=== PATIENT | female | born 1970 | race Caucasian/White ===

== ENCOUNTER 2022-09-04 19:50 | Outpatient (REF) | payer BC, SELFPAY ==
[2022-09-07 17:07] LABS: Age Gdln ACOG Testing Note (.); HPV Aptima Negative (Negative); IGP, Aptima HPV, rfx 16/18,45 Note (.)
== END 2022-09-04 19:51 ==
LOC: LAB 19:50
PROVIDERS: PCP Physician Assistant; Visit Provider Physician Assistant
DX: Z12.4 Encounter for screening for malignant neoplasm of cervix (principal)
CPT/HCPCS: 87624; G0145

== ENCOUNTER 2023-07-30 09:38 | Outpatient (OUT) | payer OTHER, SELFPAY ==
--- NOTE | 2023-07-30 09:47 | XR_ITS ---
The [address] [address] Patient Name: ARSENIO MCINTOSH MRN: [id number] date: 1970 Sex: F Assigned Patient Location: [facility] Current Patient Location: [facility] Accession/Order Number: [id number] Exam Date: 07/30/2023 09:55 Report Date: 07/30/2023 10:10 At the request of: KELLY CUBA Procedure: XR chest 2V EXAMINATION: XR chest 2V HISTORY: Acute Bronchitis Unspecified Organism J20.9 COMPARISON: No relevant comparison available. TECHNIQUE: PA and lateral FINDINGS: LUNGS: No significant pulmonary parenchymal abnormalities. VASCULATURE: No increased pulmonary vasculature. PLEURA: No pneumothorax, effusion, or pleural thickening. CARDIAC: No cardiomegaly or cardiac silhouette abnormality. MEDIASTINUM: No visible mass or adenopathy. BONES: No fracture or visible bone lesion. OTHER: Negative. XR/XR chest 2V IMPRESSION: No acute cardiopulmonary process Electronically authenticated by: ANGEL TURNER Date: 07/30/2023 10:10
== END 2023-07-30 09:39 | disposition home or self-care (01) ==
LOC: RAD 09:43
PROVIDERS: PCP Family Medicine; Visit Provider Family Medicine
DX: J20.9 Acute bronchitis, unspecified (principal)
CPT/HCPCS: 71046

== ENCOUNTER 2023-09-03 10:55 | Outpatient (OUT) | payer OTHER, SELFPAY ==
--- NOTE | 2023-09-03 11:02 | MM_ITS ---
Patient Name: ARSENIO MCINTOSH MR#: [id number] : 1970 Exam Date: 09/03/2023 Ordering Doctor: DR Salvatore Maxwell . RADIOLOGY REPORT PROCEDURE: MM TOMOSYNTHESIS SCREENING BI COMPARISON: MG MAMM SCREEN 3D JAYLA CAD, 08/28/2022. MG MAMM SCREEN JAYLA W CAD, 02/24/2019. MG MAMM JAYLA SCRN W CAD DIG, 10/20/2013. INDICATIONS: Screening Calculator Name NCI Breast Cancer Risk Assessment Tool 5 Year Breast Cancer Risk 1.30% Lifetime Breast Cancer Risk 9.30% Personal Breast Cancer No Personal Ovarian Cancer No Treatments None Family Cancers Grandfather-paternal with prostate cancer at age 78; Grandmother-maternal with unknown cancer at age ~80. LOCATION: [facility] BREAST COMPOSITION: There are scattered areas of fibroglandular density. FINDINGS: DIAGNOSTIC CATEGORY 1--NEGATIVE. RIGHT BREAST: No significant suspicious finding. No significant change has occurred. LEFT BREAST: No significant suspicious finding. No significant change has occurred. RECOMMENDATIONS: ROUTINE MAMMOGRAM AND CLINICAL EVALUATION IN 12 MONTHS. PLEASE NOTE: A NORMAL MAMMOGRAM DOES NOT EXCLUDE THE POSSIBILITY OF BREAST CANCER. A CLINICALLY SUSPICIOUS PALPABLE LUMP SHOULD BE BIOPSIED. Dictated by: Kerwin Cloud M.D. on 09/05/2023 at 13:52 Approved by: Kerwin Cloud M.D. on 09/05/2023 at 13:53
== END 2023-09-03 10:56 | disposition home or self-care (01) ==
LOC: RAD 10:57
PROVIDERS: PCP Family Medicine; Visit Provider Family Medicine
DX: Z00.00 Encounter for general adult medical examination without abnormal findings (principal); Z12.31 Encounter for screening mammogram for malignant neoplasm of breast; M81.0 Age-related osteoporosis without current pathological fracture; Z80.42 Family history of malignant neoplasm of prostate; Z80.8 Family history of malignant neoplasm of other organs or systems
CPT/HCPCS: 77063; 77067

== ENCOUNTER 2023-09-06 08:45 | Outpatient (OUT) | payer OTHER, SELFPAY ==
--- OUTSIDE RECORDS SUMMARY | 2023-09-06 09:07 | XMS_ITS | CCD ---
Author Organization [facility] Care Team Providers Care Contract Mail Carrier Name Role Phone ROSA ELENA Dickerson, DR MENDOZA Primary Care Unavailable ROSA ELENA ., DR MENDOZA Consulting Unavailable ROSA ELENA ., DR MENDOZA Attending Unavailable ROSA ELENA ., DR MENDOZA Admitting Unavailable INDIAN WELLS, DR ANGEL Medeiros Consulting Unavailable ROSA ELENA ., DR MENDOZA Admitting Unavailable ROSA ELENA ., DR MENDOZA Primary Care Unavailable ROSA ELENA ., DR MENDOZA Consulting Unavailable ROSA ELENA ., DR MENDOZA Attending Unavailable Nathalia Garcia Unavailable Medications Current Medications Medication Drug Class(es) Dates Sig (Normalized) Sig (Original) Calcium (1 source) Phosphate Binder, Calcium Calcium Active Escitalopram (1 source) Serotonin Reuptake Inhibitor Lexapro Active Ibandronate (1 source) Bisphosphonate Boniva Active pantoprazole 40 mg delayed release oral tablet (1 source) Proton Pump Inhibitor take 1 tablet by mouth every twenty-four hours Pantoprazole Sodium 40 MG 1 tablet Orally Once a day Active Womens One Daily (1 source) Womens One Daily Active Problems Active Problems Problem Classification Problem Date Documented Date Episodic/Chronic Other ear and sense organ disorders (1 source) Impacted cerumen, right ear Episodic Other screening for suspected conditions (not mental disorders or infectious disease) (1 source) Encounter for screening mammogram for malignant neoplasm of breast; Translations: [ENC SCR MAMMO MALIG NEOPLASM BREAST] Onset: 08-29-2022 Episodic Otitis media and related conditions (1 source) Other acute nonsuppurative otitis media, bilateral Episodic Residual codes; unclassified (1 source) Family history of malignant neoplasm of prostate; Translations: [FAMILY HX MALIG NEOPLASM PROSTATE] Onset: 08-29-2022 Episodic Residual codes; unclassified (1 source) Family history of malignant neoplasm, unspecified; Translations: [FAM HX MALIGNANT NEOPLASM UNS] Onset: 08-29-2022 Episodic Unclassified (3 sources) CONTACT W/AND (SUSP) EXPOS COVID-19; Translations: [CONTACT W/AND (SUSP) EXPOS COVID-19] Onset: 03-03-2022 Past or Other Problems Problem Classification Problem Date Documented Da te Episodic/Chronic Acute bronchitis (1 source) Acute bronchitis, unspecified; Translations: [ACUTE BRONCHITIS UNSPECIFIED] Onset: 03-03-2022 Episodic Unclassified (1 source) CONTACT W/AND (SUSP) EXPOS COVID-19; Translations: [CONTACT W/AND (SUSP) EXPOS COVID-19] Onset: 03-01-2022 Results Test Name Value Interpretation Reference Range Facil ity CBC AUTO DIFFon 08-28-2022 BASO # 0.1 103/ul Normal 0.0-0.1 [facility] Comment on above: Performed By: #### I NICOLE #### [facility] [address] [place] [address] Dr. Donte Palacio Basophils/100 WBC (Bld) 0.7 % Normal 0.2-2.0 [facility] Comment on above: Performed By: #### I NICOLE #### [facility] [address] [place] [address] Dr. Donte Palacio EO # 0.1 103/ul Normal 0.0-0.7 [facility] Comment on above: Performed By: #### I NICOLE #### [facility] [address] [place] [address] Dr. Donte Palacio Eosinophils/100 WBC (Bld) 1.6 % Normal 0.9-7.0 [facility] Comment on above: Performed By: #### I NICOLE #### [facility] [address] [place] [address] Dr. Donte Palacio Erythrocyte distribution width (RBC) [Ratio] 13.1 % Normal 11.0-15.0 [facility] Comment on above: Performed By: #### I NICOLE #### [facility] [address] [place] [address] Dr. Donte Palacio Hematocrit (Bld) [Volume fraction] 40.4 % Normal 36.0-48.0 [facility] Comment on above: Performed By: #### I NICOLE #### [facility] [address] [place] [address] Dr. Donte Palacio Hemoglobin (Bld) [Mass/Vol] 13.2 g/dL Normal 12.0-16.0 [facility] Comment on above: Performed By: #### I NICOLE #### [facility] [address] [place] [address] Dr. Donte Palacio IG # 0.02 10e3/ul Normal 0.00-0.03 [facility] Comment on above: Performed By: #### I NICOLE #### [facility] [address] [place] [address] Dr. Donte Palacio IG % 0.3 % Normal 0.0-0.5 [facility] Comment on above: Performed By: #### I NICOLE #### [facility] [address] [place] [address] Dr. Donte Palacio LYMPH # 2.0 103/ul Normal 1.2-3.8 [facility] Comment on above: Performed By: #### I NICOLE #### [facility] [address] [place] [address] Dr. Donte Palacio Lymphocytes/100 WBC (Bld) 30.4 % Normal 20.5-60.0 [facility] Comment on above: Performed By: #### I NICOLE #### [facility] [address] [place] [address] Dr. Donte Palacio MANUAL DIFF REQ NO Normal [facility] Comment on above: Performed By: #### I NICOLE #### [facility] [address] [place] [address] Dr. Dotne Palacio MCH (RBC) [Entitic mass] 29.2 pg Normal 26.7-34.0 [facility] Comment on above: Performed By: #### I NICOLE #### [facility] [address] [place] [address] Dr. Donte Palacio MCHC (RBC) [Mass/Vol] 32.7 g/dL Normal 29.9-35.2 [facility] Comment on above: Performed By: #### I NICOLE #### [facility] [address] [place] [address] Dr. Donte Palacio MCV (RBC) [Entitic vol] 89.4 fL Normal 81.0-99.0 [facility] Comment on above: Performed By: #### I NICOLE #### [facility] [address] [place] [address] Dr. Donte Palacio MONO # 0.5 103/ul Normal 0.3-0.8 [facility] Comment on above: Performed By: #### I NICOLE #### [facility] [address] [place] [address] Dr. Donte Palacio Monocytes/100 WBC (Bld) 7.2 % Normal 1.7-12.0 [facility] Comment on above: Performed By: #### I NICOLE #### [facility] [address] [place] [address] Dr. Donte Palacio NEUT # 4.0 103/ul Normal 1.4-6.5 [facility] Comment on above: Performed By: #### I NICOLE #### [facility] [address] [place] [address] Dr. Donte Palacio Neutrophils/100 WBC (Bld) 59.8 % Normal 43.0-75.0 [facility] Comment on above: Performed By: #### I NICOLE #### [facility] [address] [place] [address] Dr. Donte Palacio Platelet mean volume (Bld) [Entitic vol] 10.2 fL Normal 9.5-13.5 [facility] Comment on above: Performed By: #### I INCOLE #### [facility] [address] [place] [address] Dr. Donte Palacio PLT 246 103/ul Normal 150-450 [facility] Comment on above: Performed By: #### I NICOLE #### [facility] [address] [place] [address] Dr. Donte Palacio RBC 4.52 106/ul Normal 4.20-5.40 [facility] Comment on above: Performed By: #### I NICOLE #### [facility] [address] [place] [address] Dr. Donte Palacio WBC 6.7 103/ul Normal 4.0-11.0 [facility] Comment on above: Performed By: #### I NICOLE #### [facility] [address] [address] [address] Donte Palacio CULTURE URINEon 08-28-2022 CULTURE URINE Culture Observations: NO GROWTH. Normal [facility] Comment on above: Performed By: #### U RCX #### [facility] [address] [address] [address] Donte Palacio FREE T3on 08-28-2022 FREE T3 2.80 pg/mlL Normal 2.18-3.98 [facility] Comment on above: Performed By: #### C MP, LIPID, T4, FT3, TSH #### [facility] [address] [address] [address] Donte Palacio GLYCOHEMOGLOBIN A1Con 2022 ADA RECOMMENDATION SEE BELOW Normal [facility] Comment on above: Result Comment: ADA RECOMMENDED LIMIT 4.0 - 6.0 ADA THERAPEUTIC TARGET < 7.0 ACTION SUGGESTED > 7.0 Performed By: #### A 1C #### [facility] [address] [place] [address] Dr. Donte Palacio Glucose [Mass/Vol] 100 mg/dL Normal [facility] Comment on above: Performed By: #### A 1C #### [facility] [address] [address] [address] Donte Palacio HbA1c (Bld) [Mass fraction] 5.1 % Normal 4.5-6.2 [facility] Comment on above: Performed By: #### A 1C #### [facility] [address] [address] [address] Donte Palacio IRONon 08-28-2022 Iron [Mass/Vol] 74.0 ug/dL Normal 50.0-170.0 [facility] Comment on above: Performed By: #### I NICOLE #### [facility] [address] [place] [address] Dr. Donte Palacio LIPID PROFILEon 08-28-2022 CHOL-HDL RATIO NORM SEE BELOW Normal [facility] Comment on above: Result Comment: 3.3 - 4.4 LOW RISK 4.4 - 7.1 AVERAGE RISK 7.1 - 11.0 MODERATE RISK >11.0 HIGH RISK Performed By: #### C MP, LIPID, T4, FT3, TSH #### [facility] [address] [address] [address] Donte Palacio Cholesterol [Mass/Vol] 212 mg/dL Critically high <=200 [facility] Comment on above: Performed By: #### C MP, LIPID, T4, FT3, TSH #### [facility] [address] [address] [address] Donte Palacio Cholesterol in HDL [Mass/Vol] 71 mg/dL Critically high 40-60 [facility] Comment on above: Performed By: #### C MP, LIPID, T4, FT3, TSH #### [facility] [address] [place] [address] Dr. Donte Palacio Cholesterol in LDL [Mass/Vol] 117.2 mg/dL Normal [facility] Comment on above: Performed By: #### C MP, LIPID, T4, FT3, TSH #### [facility] [address] [place] [address] Dr. Donte Palacio Cholesterol.total/Cho lesterol in HDL [Mass ratio] 3.0 {ratio} Normal [facility] Comment on above: Performed By: #### C MP, LIPID, T4, FT3, TSH #### [facility] [address] [place] [address] Dr. Donte Palacio HDL NORMAL > or = 60 mg/dl - LOW CARDIOVASCULAR RISK <40 mg/dl - HIGH CARDIOVASCULAR RISK Normal [facility] Comment on above: Performed By: #### C MP, LIPID, T4, FT3, TSH #### [facility] [address] [place] [address] Dr. Donte Palacio LDL CALC NORMAL SEE BELOW Normal [facility] Comment on above: Result Comment: <100 mg/dl OPTIMAL 100 - 129 mg/dl NEAR OR ABOVE OPTIMAL 130 - 159 mg/dl BORDERLINE HIGH 160 - 189 mg/dl HIGH >190 mg/dl VERY HIGH Performed By: #### C MP, LIPID, T4, FT3, TSH #### [facility] [address] [address] [address] Donte Palacio Triglyceride [Mass/Vol] 119 mg/dL Normal <=150 [facility] Comment on above: Performed By: #### C MP, LIPID, T4, FT3, TSH #### [facility] [address] [place], [place] [address] Dr. Donte Palacio VLDL CALC 23.8 mg/dL Normal [facility] Comment on above: Performed By: #### C MP, LIPID, T4, FT3, TSH #### [facility] [address] [place], [place] [address] Dr. Donte Palacio MG MAMM SCREEN 3D JAYLA CADon 08-28-2022 MG MAMM SCREEN 3D JAYLA CAD Patient: ARSENIO MCINTOSH Exam Date: 08/28/2022 : 1970 Gender:F Ordering : DR KELLY CUBA . Admission #: [id number] Family : Order #: [id number] CLICK HERE TO VIEW EXAM RADIOLOGY REPORT PROCEDURE: MAMMOGRAM SCREENING 3D BILATERAL CAD COMPARISON: MG MAMM SCREEN 3D JAYLA CAD, 02/27/2021. INDICATIONS: Screening mammography Calculator Name NCI Breast Cancer Risk Assessment Tool 5 Year Breast Cancer Risk 1.20% Lifetime Breast Cancer Risk 9.40% Personal Breast Cancer No Personal Ovarian Cancer No Treatments None Family Cancers Grandfather-paternal with prostate cancer at age 78; Grandmother-maternal with unknown cancer at age 80. LOCATION: [facility] BREAST COMPOSITION: Scattered areas fibroglandular density. FINDINGS: DIAGNOSTIC CATEGORY 1--NEGATIVE. NO CHANGE FROM COMPARISON ASSESSMENT. Scattered benign-appearing calcifications are present. Scattered benign-appearing lymph nodes are present. RIGHT BREAST: No significant suspicious finding. LEFT BREAST: No significant suspicious finding. RECOMMENDATIONS: ROUTINE MAMMOGRAM AND CLINICAL EVALUATION IN 12 MONTHS. PLEASE NOTE: A NORMAL MAMMOGRAM DOES NOT EXCLUDE THE POSSIBILITY OF BREAST CANCER. A CLINICALLY SUSPICIOUS PALPABLE LUMP SHOULD BE BIOPSIED. Dictated by: Angel Bradford MD on 08/28/2022 at 11:01 Approved by: Angel Bradford MD on 08/28/2022 at 11:04 Normal [facility] PROF 14(COMP METB)on 023 Albumin [Mass/Vol] 4.1 g/dL Normal 3.4-5.0 [facility] Comment on above: Performed By: #### C MP, LIPID, T4, FT3, TSH #### [facility] [address] [place] [address] Dr. Donte Palacio Albumin/Globulin [Mass ratio] 1.1 {ratio} Normal [facility] Comment on above: Performed By: #### C MP, LIPID, T4, FT3, TSH #### [facility] [address] [place] [address] Dr. Donte Palacio ALP [Catalytic activity/Vol] 77 U/L Normal 46-116 [facility] Comment on above: Performed By: #### C MP, LIPID, T4, FT3, TSH #### [facility] [address] [place] [address] Dr. Donte Palacio ALT [Catalytic activity/Vol] 32 U/L Normal 14-59 [facility] Comment on above: Performed By: #### C MP, LIPID, T4, FT3, TSH #### [facility] [address] [place] [address] Dr. Donte Palacio Anion gap [Moles/Vol] 11.5 mmol/L Normal [facility] Comment on above: Performed By: #### C MP, LIPID, T4, FT3, TSH #### [facility] [address] [place] [address] Dr. Donte Palacio AST [Catalytic activity/Vol] 21 U/L Normal 15-37 [facility] Comment on above: Performed By: #### C MP, LIPID, T4, FT3, TSH #### [facility] [address] [place] [address] Dr. Donte Palacio Bilirubin [Mass/Vol] 0.3 mg/dL Normal 0.2-1.0 [facility] Comment on above: Performed By: #### C MP, LIPID, T4, FT3, TSH #### [facility] [address] [place] [address] Dr. Donte Palacio Calcium [Mass/Vol] 9.1 mg/dL Normal 8.5-10.1 [facility] Comment on above: Performed By: #### C MP, LIPID, T4, FT3, TSH #### [facility] [address] [address] [address] Donte Palacio Chloride [Moles/Vol] 102 mmol/L Normal 98-107 [facility] Comment on above: Performed By: #### C MP, LIPID, T4, FT3, TSH #### [facility] [address] [place] [address] Dr. Donte Palacio CO2 [Moles/Vol] 31.7 mmol/L Normal 21.0-32.0 [facility] Comment on above: Performed By: #### C MP, LIPID, T4, FT3, TSH #### [facility] [address] [address] [address] Donte Palacio Creatinine [Mass/Vol] 0.75 mg/dL Normal 0.55-1.02 [facility] Comment on above: Performed By: #### C MP, LIPID, T4, FT3, TSH #### [facility] [address] [place] [address] Dr. Donte Palacio EGFR-AF DUTCH >60 Normal >=60 [facility] Comment on above: Performed By: #### C MP, LIPID, T4, FT3, TSH #### [facility] [address] [place] [address] Dr. Donte Palacio EGFR-NON AF DUTCH >60 Normal >=60 [facility] Comment on above: Performed By: #### C MP, LIPID, T4, FT3, TSH #### [facility] [address] [place] [address] Dr. Donte Palacio Globulin (S) [Mass/Vol] 3.8 g/dL Normal [facility] Comment on above: Performed By: #### C MP, LIPID, T4, FT3, TSH #### [facility] [address] [place] [address] Dr. Donte Palacio Glucose [Mass/Vol] 87 mg/dL Normal 74-106 [facility] Comment on above: Performed By: #### C MP, LIPID, T4, FT3, TSH #### [facility] [address] [place] [address] Dr. Donte Palacio Potassium [Moles/Vol] 4.2 mmol/L Normal 3.5-5.1 [facility] Comment on above: Performed By: #### C MP, LIPID, T4, FT3, TSH #### [facility] [address] [place] [address] Dr. Donte Palacio Protein [Mass/Vol] 7.9 g/dL Normal 6.4-8.2 [facility] Comment on above: Performed By: #### C MP, LIPID, T4, FT3, TSH #### [facility] [address] [place] [address] Dr. Donte Palacio Sodium [Moles/Vol] 141 mmol/L Normal 136-145 [facility] Comment on above: Performed By: #### C MP, LIPID, T4, FT3, TSH #### [facility] [address] [place] [address] Dr. Donte Palacio Urea nitrogen [Mass/Vol] 12.0 mg/dL Normal 7.0-18.0 [facility] Comment on above: Performed By: #### C MP, LIPID, T4, FT3, TSH #### [facility] [address] [place] [address] Dr. Donte Palacio Urea nitrogen/Creatinine [Mass ratio] 16.0 mg/mg Normal [facility] Comment on above: Performed By: #### C MP, LIPID, T4, FT3, TSH #### [facility] [address] [place] [address] Dr. Donte Palacio T4on 08-28-2022 T4 [Mass/Vol] 8.90 ug/dL Normal 4.80-13.90 [facility] Comment on above: Performed By: #### C MP, LIPID, T4, FT3, TSH #### [facility] [address] [place] [address] Dr. Donte Palacio TSHon 08-28-2022 TSH 1.998 uIU/mL Normal 0.358-3.740 [facility] Comment on above: Performed By: #### C MP, LIPID, T4, FT3, TSH #### [facility] [address] [address] [address] Donte Palacio UA RANDOM W/MICROSCOPICon BACTERIA TRACE Abnormal NONE SEEN [facility] Comment on above: Performed By: #### U AMIC #### [facility] [address] [place] [address] Dr. Donte Palacio Bilirubin Ql (U) Negative Normal NEGATIVE [facility] Comment on above: Performed By: #### U AMIC #### [facility] [address] [place] [address] Dr. Donte Palacio CAST NONE SEEN Normal NONE SEEN [facility] Comment on above: Performed By: #### U AMIC #### [facility] [address] [place] [address] Dr. Donte Palacio Clarity (U) CLEAR Normal CLEAR [facility] Comment on above: Performed By: #### U AMIC #### [facility] [address] [place] [address] Dr. Donte Palacio Color (U) LT. YELLOW Normal YELLOW [facility] Comment on above: Performed By: #### U AMIC #### [facility] [address] [place] [address] Dr. Donte Palacio Crystals LM Nom (Urine sed) NONE SEEN Normal NONE SEEN [facility] Comment on above: Performed By: #### U AMIC #### [facility] [address] [place] [address] Dr. Donte Palacio Epithelial cells LM Ql (Urine sed) RARE Normal NONE SEEN /RARE [facility] Comment on above: Performed By: #### U AMIC #### [facility] [address] [place] [address] Dr. Donte Palacio Glucose Ql (U) Negative Normal NEGATIVE [facility] Comment on above: Performed By: #### U AMIC #### [facility] [address] [place] [address] Dr. Donte aPlacio Hemoglobin Ql (U) TRACE-INTACT Abnormal NEGATIVE [facility] Comment on above: Performed By: #### U AMIC #### [facility] [address] [place] [address] Dr. Donte Palacio Ketones Ql (U) Negative Normal NEGATIVE [facility] Comment on above: Performed By: #### U AMIC #### [facility] [address] [place] [address] Dr. Donte Palacio LEUKOCYTES Negative Normal NEGATIVE [facility] Comment on above: Performed By: #### U AMIC #### [facility] [address] [place] [address] Dr. Donte Palacio MUCOUS NONE SEEN Normal NONE SEEN [facility] Comment on above: Performed By: #### U AMIC #### [facility] [address] [place] [address] Dr. Donte Palacio Nitrite Ql (U) Negative Normal NEGATIVE [facility] Comment on above: Performed By: #### U AMIC #### [facility] [address] [place] [address] Dr. Donte Palacio pH (U) 6.0 [pH] Normal 5-9 [facility] Comment on above: Performed By: #### U AMIC #### [facility] [address] [place] [address] Dr. Donte Palacio RBC 0-2 Normal 0-2 [facility] Comment on above: Performed By: #### U AMIC #### [facility] [address] [place] [address] Dr. Donte Palacio SPEC GRAVITY <=1.005 Abnormal 1.005-<=1.025 [facility] Comment on above: Performed By: #### U AMIC #### [facility] [address] [address] [address] Donte Palacio UA PROTEIN Negative Normal NEGATIVE/ TRACE [facility] Comment on above: Performed By: #### U AMIC #### [facility] [address] [place] [address] Dr. Donte Palacio Urobilinogen Qn (U) 0.2 {Paige'U}/dL Normal 0.2 - 1. 0 [facility] Comment on above: Performed By: #### U AMIC #### [facility] [address] [place] [address] Dr. Donte Palacio WBC NONE SEEN Normal NONE SEEN [facility] Comment on above: Performed By: #### U AMIC #### [facility] [address] [place] [address] Dr. Donte Palacio Covid-19 PCR ([facility])on SARS-CoV-2 (COVID-19) RNA MARQUES+probe Ql (Unsp spec) Not detected Normal NOT DETECTED [facility] Comment on above: Result Comment: This test is not yet approved or cleared by the [place] FDA. When there are no FDA-approved or cleared tests available, and other criteria are met, FDA can make tests available under an emergency access mechanism called an Emergency Use Authorization (EUA). The EUA for this test is supported by the [employer] of Health and Human Service's (HHS's) declaration that circumstances exist to justify the emergency use of in vitro diagnostics for the detection and/or diagnosis of the virus that causes COVID-19. This EUA will remain in effect (meaning this test can be used) for the duration of the COVID-19 declaration justifying emergency of IVDs, unless it is terminated or revoked by FDA (after which the test may no longer be used). When diagnostic testing is negative, the possibility of a false negative should be considered in the context of a patient's recent exposures and the presence of clinical signs and symptoms consistent with SARS-CoV-2. Performed By: #### I NICOLE #### [facility] [address] [place] [address] Dr. Donte Palacio INFLUENZA A AND B AGon 03-01 [facility] SEE BELOW Normal [facility] Comment on above: Result Comment: Nega tive for Flu A protein angiten. Infection due to Flu A cannot be ruled out. Flu A angiten in the sample may be below the detection limit of the test. Performed By: #### I NICOLE #### [facility] [address] [place] [address] Dr. [facility] Comment on above: Result Comment: Nega tive for Flu B protein antigen. Infection due to Flu B cannot be ruled out. Flu B antigen in the sample may be below the detection limit of the test. Performed By: #### I NICOLE #### [facility] [address], [place] [address] Dr. Donte Palacio INFLUENZA A AG Negative Normal NEGATIVE SEE COMMENT [facility] Comment on above: Performed By: #### I NICOLE #### [facility] [address], [place] [address] Dr. Donte Palacio INFLUENZA B AG Negative Normal NEGATIVE SEE COMMENT [facility] Comment on above: Performed By: #### I NICOLE #### [facility] [address] [address] [address] Donte Palacio INTERNAL CONTROLS Within Normal Limits Normal Wi thin Normal Limits [facility] Comment on above: Performed By: #### I NICOLE #### [facility] [address] [address] [address] Donte Palacio Vital Signs Date Time Vital Sign Value Performing Clinician Facility 03-21-2023 16:55-0500 Body height 165.1 cm Nathalia Garcia Other [facility] Other 03-21-2023 16:55-0500 Body mass index (BMI) [Ratio] 28.67 kg/m2 Nathalia Garcia Other [facility] Other 03-21-2023 16:55-0500 Body temperature 98.1 [degF] Nathalia Garcia Other [facility] Other 03-21-2023 16:55-0500 Body weight 78.16 kg Nathalia Garcia Other [facility] Other 03-21-2023 16:55-0500 Respiratory rate 18 /min Nathalia Garcia Other [facility] Other 03-21-2023 16:55-0500 SaO2% (BldA) [Mass fraction] 98 % Nathalia Garcia Other [facility] Other Encounters Encounter Date Encounter Type Care Provider Facility Start: 03-21-2023 End: 03-21-2023 ambulatory Nathalia Garcia Other [facility] Other Start: 03-21-2023 Office outpatient ne w 30 minutes Nathalia Jose [facility] Start: 08-29-2022 Encounter for genera l adult medical examination without abnormal findings DR KELLY CUBA . [facility] Start: 08-28-2022 End: 08-29-[address] KELLY CUBA . Facility: Start: 08-28-2022 End: 08-29-2022 Encounter for general adult medical examination without abnormal findings DR KELLY CUBA . Facility:[facility] Start: 03-01-2022 End: 03-01-[address] KELLY CUBA . Facility: Payers Date Payer Category Payer Unknown [id number] [id number] 1970 Unknown [id number] 1960 Unknown [id number] Private Health Insurance [id number] Social History Date Type Detail Facility Unknown if ever smoked [facility] Other Sex Assigned At Sex Assigned At Bir th [facility] Other Evaluation note 03-21-2023 Note Date & Type Note Facility 03-21-2023 Evaluation note Encounter Date Diagnosis Assessment Notes Mar, Right ear impacted cerumen (ICD-10 - H61.21) Ear lavage in office today. Discussed proper ear hygiene. Avoid putting anything inside the ear such as Q-tips, etc. Patient may use OTC wax softeners (Debrox) as directed as needed. Follow up with UC or PCP as needed. Immediate eval for ear drainage, pain, loss of hearing, ringing, dizziness, fever, redness, swelling, and pain behind the ear, headache, neck pain, or any other new or concerning symptoms. Patient verbalizes understanding and is agreeable to treatment plan. Mar, Acute middle ear effusion, bilateral (ICD-10 - H65.193) Discussed diagnosis with patient, explained to patient that there is middle ear fluid without signs of bacterial infection, antibiotics are not indicated at this time. This is commonly due to ET dysfunction, viral illness, allergies, barotrauma, or recent AOM. Advised patient that fluid in middle ear may take several weeks to resolve. Take OTC medications of Flonase and Zyrtec/Claritin as directed. Supportive treatment as directed, push fluids/test, Tylenol/Motrin for discomfort. Follow up with PCP in 2 weeks or sooner for new or worsening symptoms. Patient verbalizes understanding and is agreeable to treatment plan [facility] Other History general Narrative - Reported Note Date & Type Note Facility History general Narrative - Reported Type Medical History Esophageal reflux Medical History chronic depression Surgical History hysterectomy Hospitalization History See Above [facility] Other Summary Purpose Family History No Family History Records Found Advance Directives No Advanced Directives Records Found Additional Source Comments INFORMATION SOURCE (unrecogn ized section and content) DATE CREATED AUTHOR 09/07/2022 [facility] REASON FOR VISIT (unrecogniz ed section and content) BOTH EARS, PLUGGED UP AND HU RT, SORE THROAT FOR RECORDS PERTAINING TO PATIENTS WHO ARE OR HAVE BEEN ENROLLED IN A CHEMICAL DEPENDENCY/SUBSTANCEABUSE PROGRAM, SOME INFORMATION MAY BE OMITTED. This clinical summary was aggregated from multiple sources. Caution should be exercised in using it in the provision of clinical care. This summary normalizes information from multiple sources, and as a consequence, information in this document may materially change the coding, format and clinical context of patient data. In addition, data may be omitted in some cases. CLINICAL DECISIONS SHOULD BE BASED ON THE PRIMARY CLINICAL RECORDS. [employer] provides no warranty or guarantee of the accuracy or completeness of information in this document.
[2023-09-06 09:10] LABS: Basophils Absolute Auto 0.1 10^3/uL (0.0-0.1); Basophils Percent Auto 0.9 % (0.2-2.0); Eosinophils Absolute Auto 0.2 10^3/uL (0.0-0.7); Eosinophils Percent Auto 3.3 % (0.9-7.0); Hematocrit 38.2 % (36.0-48.0); Hemoglobin 12.6 g/dL (12.0-16.0); Immature Granulocytes Abs Auto 0.02 10^3/uL (0.00-0.03); Immature Granulocytes Pct Auto 0.3 % (0.0-0.5); Lymphocytes Absolute Auto 1.6 10^3/uL (1.2-3.8); Lymphocytes Percent Auto 21.5 % (20.5-60.0); Mean Corpuscular Hemoglobin 29.2 pg (26.7-34.0); Mean Corpuscular Volume 88.6 fL (81.0-99.0); Mean Platelet Volume 9.7 fL (9.5-13.5); Monocytes Absolute Auto 0.5 10^3/uL (0.3-0.8); Monocytes Percent Auto 6.2 % (1.7-12.0); Neutrophils Percent Auto 67.8 % (43.0-75.0); Platelet Count 281 10^3/uL (150-450); Red Blood Count 4.31 10^6/uL (4.20-5.40); Red Cell Distribution Width 13.1 % (11.0-15.0); White Blood Count 7.4 10^3/uL (4.0-11.0)
[2023-09-06 10:04] LABS: Alanine Aminotransferase 26 U/L (14-59); Albumin Globulin Ratio 0.9; Albumin Level 3.5 g/dL (3.4-5.0); Alkaline Phosphatase 98 U/L (46-116); Anion Gap 14.3; Aspartate Amino Transferase 19 U/L (15-37); BUN Creatinine Ratio 12.3; Bilirubin Total 0.4 mg/dL (0.2-1.0); Calcium 8.6 mg/dL (8.5-10.1); Carbon Dioxide 27.7 mmol/L (21.0-32.0); Chloride 103 mmol/L (98-107); Chol HDL Ratio 3.5; Cholesterol 232 mg/dL (<=200); Estimated GFR (African America >60 (>=60); Estimated GFR (Non-African Ame >60 (>=60); Free T3 2.91 pg/mL (2.18-3.98); Globulin 3.8 g/dL; Glucose 94 mg/dL (74-106); HDL Cholesterol 67 mg/dL (40-60); Sodium 141 mmol/L (136-145); Total Protein 7.3 g/dL (6.4-8.2); Triglycerides 91 mg/dL (<=150); VLDL CHOLESTEROL 18.2 mg/dL
[2023-09-06 10:13] LABS: Estimated Average Glucose 103 mg/dL; Glycohemoglobin A1C 5.2 % (4.5-6.2)
[2023-09-08 12:11] LABS: Insulin 15.4 uIU/mL (2.6-24.9)
== END 2023-09-06 08:46 | disposition home or self-care (01) ==
LOC: LAB 08:46
PROVIDERS: PCP Family Medicine; Visit Provider Family Medicine
DX: Z00.00 Encounter for general adult medical examination without abnormal findings (principal); E55.9 Vitamin D deficiency, unspecified
CPT/HCPCS: 36415; 80053; 80061; 82306; 83036; 83525; 83540; 84436; 84443; 84481; 85025

== ENCOUNTER 2023-10-18 08:06 | Outpatient (OUT) | payer OTHER, SELFPAY ==
--- OUTSIDE RECORDS SUMMARY | 2023-10-18 08:10 | XMS_ITS ---
Patient Summarization (C-CDA 2.1 CCD) Created on: October 18, 2023 ARSENIO MCINTOSH : 1970 Sex: Female Author Organization Sample organization Care Team Providers Care Bilingual Legal Assistant Name Role Phone ROSA ELENA Dickerson, DR MENDOZA Primary Care Unavailable ROSA ELENA ., DR MENDOZA Consulting Unavailable ROSA ELENA ., DR MENDOZA Attending Unavailable ROSA ELENA ., DR MENDOZA Admitting Unavailable HONOLULU, DR ANGEL Medeiros Consulting Unavailable HOY ., DR MENDOZA Admitting Unavailable PERCYY ., DR MENDOZA Primary Care Unavailable ROSA ELENA ., DR MENDOZA Consulting Unavailable ROSA ELENA ., DR MENDOZA Attending Nathalia Smith Encounters Encounter Date Encounter Type Care Provider Facility Start: 03-21-2023 End: 03-21-2023 ambulatory Nathlaia Garcia Other [email or web address] Other Start: 03-21-2023 Office outpatient ne w 30 minutes Nathalia Garcia [facility] [place] Start: 08-29-2022 Encounter for genera l adult medical examination without abnormal findings DR KELLY CUBA . [facility] Start: 08-28-2022 End: 08-29-[address] KELLY CUBA . Facility: Start: 08-28-2022 End: 08-29-2022 Encounter for general adult medical examination without abnormal findings DR KELLY CUBA . Facility: Start: 03-01-2022 End: 03-01-[address] KELLY CUBA . Facility: Medications Current Medications Medication Drug Class(es) Dates [...] Daily (1 source) [facility] [employer] Daily Active Payers Date Payer Category Payer Unknown [id number] 1970 Unknown [id number] 1960 Unknown [id number] Private Health Insurance [id number] Problems Active Problems Problem Classification Problem Date [...] BASO # 0.1 103/ul Normal 0.0-0.1 [facility] Comment on above: Performed By: #### I NICOLE #### [facility] [address] [place] [address] Dr. Donte Palacio Basophils/100 WBC (Bld) 0.7 % Normal 0.2-2.0 [facility] Comment on above: Performed By: #### I NICOLE #### [facility] [address] [place] [address] Dr. Donte Palacio EO # 0.1 103/ul Normal 0.0-0.7 [facility] Comment on above: Performed By: #### I NICOLE #### [facility] [address] [place] [address] Dr. Donte Palacio Eosinophils/100 WBC (Bld) 1.6 % Normal 0.9-7.0 [facility] Comment on above: Performed By: #### I NICOLE #### [facility] [address] [place] [address] Dr. Donte Palacio Erythrocyte distribution width (RBC) [Ratio] 13.1 % Normal 11.0-15.0 [facility] Comment on above: Performed By: #### I NICOLE #### [facility] [address] [place] [address] Dr. Donte Palacio Hematocrit (Bld) [Volume fraction] 40.4 % Normal 36.0-48.0 [facility] Comment on above: Performed By: #### I NICOLE #### [facility] [address] [place] [address] Dr. Donte Palacio Hemoglobin (Bld) [Mass/Vol] 13.2 g/dL Normal 12.0-16.0 [facility] Comment on above: Performed By: #### I NICOLE #### [facility] [address] [place] [address] Dr. Donte Palacio IG # 0.02 10e3/ul Normal 0.00-0.03 [facility] Comment on above: Performed By: #### I NICOLE #### [facility] [address] [place] [address] Dr. Donte Palacio IG % 0.3 % Normal 0.0-0.5 [facility] Comment on above: Performed By: #### I NICOLE #### [facility] [address] [place] [address] Dr. Donte Palacio LYMPH # 2.0 103/ul Normal 1.2-3.8 [facility] Comment on above: Performed By: #### I NICOLE #### [facility] [address] [place] [address] Dr. Donte Palacio Lymphocytes/100 WBC (Bld) 30.4 % Normal 20.5-60.0 [facility] Comment on above: Performed By: #### I NICOLE #### [facility] [address] [place] [address] Dr. Donte Palacio MANUAL DIFF REQ NO Normal [facility] Comment on above: Performed By: #### I NICOLE #### [facility] [address] [place] [address] Dr. Donte Palacio MCH (RBC) [Entitic mass] 29.2 pg Normal 26.7-34.0 [facility] Comment on above: Performed By: #### I NICOLE #### [facility] [address] [place] [address] Dr. Donte Palacio MCHC (RBC) [Mass/Vol] 32.7 g/dL Normal 29.9-35.2 [facility] Comment on above: Performed By: #### I NICOLE #### [facility] [address] [place] [address] Dr. Donte Palacio MCV (RBC) [Entitic vol] 89.4 fL Normal 81.0-99.0 [facility] Comment on above: Performed By: #### I NICOLE #### [facility] [address] [place] [address] Dr. Donte Palacio MONO # 0.5 103/ul Normal 0.3-0.8 [facility] Comment on above: Performed By: #### I NICOLE #### [facility] [address] [place] [address] Dr. Donte Palacio Monocytes/100 WBC (Bld) 7.2 % Normal 1.7-12.0 [facility] Comment on above: Performed By: #### I NICOLE #### [facility] [address] [place] [address] Dr. Donte Palacio NEUT # 4.0 103/ul Normal 1.4-6.5 [facility] Comment on above: Performed By: #### I NICOLE #### [facility] [address] [address] [address] Donte Palacio Neutrophils/100 WBC (Bld) 59.8 % Normal 43.0-75.0 [facility] Comment on above: Performed By: #### I NICOLE #### [facility] [address] [place] [address] Dr. Donte Palacio Platelet mean volume (Bld) [Entitic vol] 10.2 fL Normal 9.5-13.5 [facility] Comment on above: Performed By: #### I NICOLE #### [facility] [address] [place] [address] Dr. Donte Palacio PLT 246 103/ul Normal 150-450 [facility] Comment on above: Performed By: #### I NICOLE #### [facility] [address] [place] [address] Dr. Donte Palacio RBC 4.52 106/ul Normal 4.20-5.40 [facility] Comment on above: Performed By: #### I NICOLE #### [facility] [address] [place] [address] Dr. Donte Palacio WBC 6.7 103/ul Normal 4.0-11.0 [facility] Comment on above: Performed By: #### I NICOLE #### [facility] [address] [place] [address] Dr. Donte Palacio CULTURE URINEon 08-28-2022 CULTURE URINE Culture Observations: NO GROWTH. Normal [facility] Comment on above: Performed By: #### U RCX #### [facility] [address] [place] [address] Dr. Donte Palacio FREE T3on 08-28-2022 FREE T3 2.80 pg/mlL Normal 2.18-3.98 [facility] Comment on above: Performed By: #### C MP, LIPID, T4, FT3, TSH #### [facility] [address] [place] [address] Dr. Donte Palacio GLYCOHEMOGLOBIN A1Con 2022 ADA RECOMMENDATION SEE BELOW Normal [facility] Comment on above: Result Comment: ADA RECOMMENDED LIMIT 4.0 - 6.0 ADA THERAPEUTIC TARGET < 7.0 ACTION SUGGESTED > 7.0 Performed By: #### A 1C #### [facility] [address] [place] [address] Dr. Donte Palacio Glucose [Mass/Vol] 100 mg/dL Normal [facility] Comment on above: Performed By: #### A 1C #### [facility] [address] [address] [address] Donte Palacio HbA1c (Bld) [Mass fraction] 5.1 % Normal 4.5-6.2 [facility] Comment on above: Performed By: #### A 1C #### [facility] [address] [place] [address] Dr. Donte Palacio IRONon 08-28-2022 Iron [Mass/Vol] 74.0 ug/dL Normal 50.0-170.0 [facility] Comment on above: Performed By: #### I NICOLE #### [facility] [address] [place] [address] Dr. Donte Palacio LIPID PROFILEon 08-28-2022 CHOL-HDL RATIO NORM SEE BELOW Normal [facility] Comment on above: Result Comment: 3.3 - 4.4 LOW RISK 4.4 - 7.1 AVERAGE RISK 7.1 - 11.0 MODERATE RISK >11.0 HIGH RISK Performed By: #### C MP, LIPID, T4, FT3, TSH #### [facility] [address] [place] [address] Dr. Donte Palacio Cholesterol [Mass/Vol] 212 mg/dL Critically high <=200 [facility] Comment on above: Performed By: #### C MP, LIPID, T4, FT3, TSH #### [facility] [address] [place] [address] Dr. Donte Palacio Cholesterol in HDL [Mass/Vol] 71 mg/dL Critically high 40-60 [facility] Comment on above: Performed By: #### C MP, LIPID, T4, FT3, TSH #### [facility] [address] [place] [address] Dr. Donte Palacio Cholesterol in LDL [Mass/Vol] 117.2 mg/dL Normal [facility] Comment on above: Performed By: #### C MP, LIPID, T4, FT3, TSH #### [facility] [address] [address] [address] Donte Palacio Cholesterol.total/Cho lesterol in HDL [Mass ratio] 3.0 {ratio} Normal [facility] Comment on above: Performed By: #### C MP, LIPID, T4, FT3, TSH #### [facility] [address] [address] [address] Donte Palacio HDL NORMAL > or = 60 mg/dl - LOW CARDIOVASCULAR RISK <40 mg/dl - HIGH CARDIOVASCULAR RISK Normal [facility] Comment on above: Performed By: #### C MP, LIPID, T4, FT3, TSH #### [facility] [address] [address] [address] Donte Palacio LDL CALC NORMAL SEE BELOW Normal [facility] Comment on above: Result Comment: <100 mg/dl OPTIMAL 100 - 129 mg/dl NEAR OR ABOVE OPTIMAL 130 - 159 mg/dl BORDERLINE HIGH 160 - 189 mg/dl HIGH >190 mg/dl VERY HIGH Performed By: #### C MP, LIPID, T4, FT3, TSH #### [facility] [address] [address] [address] Donte Palacio Triglyceride [Mass/Vol] 119 mg/dL Normal <=150 [facility] Comment on above: Performed By: #### C MP, LIPID, T4, FT3, TSH #### [facility] [address] [address] [address] Donte Palacio VLDL CALC 23.8 mg/dL Normal [facility] Comment on above: Performed By: #### C MP, LIPID, T4, FT3, TSH #### [facility] [address] [address] [address] Donte Palacio MG MAMM SCREEN 3D JAYLA CADon 08-28-2022 MG MAMM SCREEN 3D JAYLA CAD Patient: ARSENIO MCINTOSH Exam Date: 08/28/2022 : 1970 Gender:F Ordering : DR KELLY CUBA . Admission #: [id number] Family : Order #: [id number] CLICK HERE TO VIEW EXAM RADIOLOGY REPORT [...] unknown cancer at age 79. LOCATION: [facility] BREAST COMPOSITION: Scattered areas fibroglandular density. [...] Bradford MD on 08/28/2022 at 11:04 Normal [facility] PROF 14(COMP METB)on 023 Albumin [Mass/Vol] 4.1 g/dL Normal 3.4-5.0 [facility] Comment on above: Performed By: #### C MP, LIPID, T4, FT3, TSH #### [facility] [address] [place] [address] Dr. Donte Palacio Albumin/Globulin [Mass ratio] 1.1 {ratio} Normal [facility] Comment on above: Performed By: #### C MP, LIPID, T4, FT3, TSH #### [facility] [address] [place], [place] [address] Dr. Donte Palacio ALP [Catalytic activity/Vol] 77 U/L Normal 46-116 [facility] Comment on above: Performed By: #### C MP, LIPID, T4, FT3, TSH #### [facility] [address] [place], [place] [address] Dr. Donte Palacio ALT [Catalytic activity/Vol] 32 U/L Normal 14-59 [facility] Comment on above: Performed By: #### C MP, LIPID, T4, FT3, TSH #### [facility] [address] [place] [address] Dr. Donte Palacio Anion gap [Moles/Vol] 11.5 mmol/L Normal [facility] Comment on above: Performed By: #### C MP, LIPID, T4, FT3, TSH #### [facility] [address] [place] [address] Dr. Donte Palacio AST [Catalytic activity/Vol] 21 U/L Normal 15-37 [facility] Comment on above: Performed By: #### C MP, LIPID, T4, FT3, TSH #### [facility] [address] [place] [address] Dr. Donte Palacio Bilirubin [Mass/Vol] 0.3 mg/dL Normal 0.2-1.0 [facility] Comment on above: Performed By: #### C MP, LIPID, T4, FT3, TSH #### [facility] [address] [place] [address] Dr. Donte Palacio Calcium [Mass/Vol] 9.1 mg/dL Normal 8.5-10.1 [facility] Comment on above: Performed By: #### C MP, LIPID, T4, FT3, TSH #### [facility] [address] [place] [address] Dr. Donte Palacio Chloride [Moles/Vol] 102 mmol/L Normal 98-107 [facility] Comment on above: Performed By: #### C MP, LIPID, T4, FT3, TSH #### [facility] [address] [place] [address] Dr. Donte Palacio CO2 [Moles/Vol] 31.7 mmol/L Normal 21.0-32.0 [facility] Comment on above: Performed By: #### C MP, LIPID, T4, FT3, TSH #### [facility] [address] [place] [address] Dr. Donte Palacio Creatinine [Mass/Vol] 0.75 mg/dL Normal 0.55-1.02 [facility] Comment on above: Performed By: #### C MP, LIPID, T4, FT3, TSH #### [facility] [address] [address] [address] Donte Palacio EGFR-AF CUBAN >60 Normal >=60 [facility] Comment on above: Performed By: #### C MP, LIPID, T4, FT3, TSH #### [facility] [address] [address] [address] Donte Palacio EGFR-NON AF CUBAN >60 Normal >=60 [facility] Comment on above: Performed By: #### C MP, LIPID, T4, FT3, TSH #### [facility] [address] [place] [address] Dr. Donte Palacio Globulin (S) [Mass/Vol] 3.8 g/dL Normal [facility] Comment on above: Performed By: #### C MP, LIPID, T4, FT3, TSH #### [facility] [address] [place] [address] Dr. Donte Palacio Glucose [Mass/Vol] 87 mg/dL Normal 74-[address] [facility] Comment on above: Performed By: #### C MP, LIPID, T4, FT3, TSH #### [facility] [address] [address] [address] Donte Palacio Potassium [Moles/Vol] 4.2 mmol/L Normal 3.5-5.1 [facility] Comment on above: Performed By: #### C MP, LIPID, T4, FT3, TSH #### [facility] [address] [place] [address] Dr. Donte Palacio Protein [Mass/Vol] 7.9 g/dL Normal 6.4-8.[address] [facility] Comment on above: Performed By: #### C MP, LIPID, T4, FT3, TSH #### [facility] [address] [place] [address] Dr. Donte Palacio Sodium [Moles/Vol] 141 mmol/L Normal 136-145 [facility] Comment on above: Performed By: #### C MP, LIPID, T4, FT3, TSH #### [facility] [address] [place] [address] Dr. Donte Palacio Urea nitrogen [Mass/Vol] 12.0 mg/dL Normal 7.0-18.0 [facility] Comment on above: Performed By: #### C MP, LIPID, T4, FT3, TSH #### [facility] [address] [place] [address] Dr. Donte Palacio Urea nitrogen/Creatinine [Mass ratio] 16.0 mg/mg Normal [facility] Comment on above: Performed By: #### C MP, LIPID, T4, FT3, TSH #### [facility] [address] [place] [address] Dr. Donte Palacio T4on 08-28-2022 T4 [Mass/Vol] 8.90 ug/dL Normal 4.80-13.90 [facility] Comment on above: Performed By: #### C MP, LIPID, T4, FT3, TSH #### [facility] [address] [place] [address] Dr. Donte Palacio TSHon 08-28-2022 TSH 1.998 uIU/mL Normal 0.358-3.740 [facility] Comment on above: Performed By: #### C MP, LIPID, T4, FT3, TSH #### [facility] [address] [place] [address] Dr. Donte Palacio UA RANDOM W/MICROSCOPICon BACTERIA TRACE Abnormal NONE SEEN [facility] Comment on above: Performed By: #### U AMIC #### [facility] [address] [place] [address] Dr. Donte Palacio Bilirubin Ql (U) Negative Normal NEGATIVE [facility] Comment on above: Performed By: #### U AMIC #### [facility] [address] [place] [address] Dr. Donte Palacio CAST NONE SEEN Normal NONE SEEN [facility] Comment on above: Performed By: #### U AMIC #### [facility] [address] [place] [address] Dr. Donte Palacio Clarity (U) CLEAR Normal CLEAR [facility] Comment on above: Performed By: #### U AMIC #### [facility] [address] [address] [address] Donte Palacio Color (U) LT. YELLOW Normal YELLOW [facility] Comment on above: Performed By: #### U AMIC #### [facility] [address] [place] [address] Dr. Donte Palacio Crystals LM Nom (Urine sed) NONE SEEN Normal NONE SEEN [facility] Comment on above: Performed By: #### U AMIC #### [facility] [address] [address] [address] Donte Palacio Epithelial cells LM Ql (Urine sed) RARE Normal NONE SEEN /RARE [facility] Comment on above: Performed By: #### U AMIC #### [facility] [address] [place] [address] Dr. Donte Palacio Glucose Ql (U) Negative Normal NEGATIVE [facility] Comment on above: Performed By: #### U AMIC #### [facility] [address] [place] [address] Dr. Donte Palacio Hemoglobin Ql (U) TRACE-INTACT Abnormal NEGATIVE [facility] Comment on above: Performed By: #### U AMIC #### [facility] [address] [place] [address] Dr. Donte Palacio Ketones Ql (U) Negative Normal NEGATIVE [facility] Comment on above: Performed By: #### U AMIC #### [facility] [address] [place] [address] Dr. Donte Palacio LEUKOCYTES Negative Normal NEGATIVE [facility] Comment on above: Performed By: #### U AMIC #### [facility] [address] [place] [address] Dr. Donte Palacio MUCOUS NONE SEEN Normal NONE SEEN [facility] Comment on above: Performed By: #### U AMIC #### [facility] [address] [place] [address] Dr. Donte Palacio Nitrite Ql (U) Negative Normal NEGATIVE [facility] Comment on above: Performed By: #### U AMIC #### [facility] [address] [place] [address] Dr. Donte Palacio pH (U) 6.0 [pH] Normal 5-9 [facility] Comment on above: Performed By: #### U AMIC #### [facility] [address] [place] [address] Dr. Donte Palacio RBC 0-2 Normal 0-2 [facility] Comment on above: Performed By: #### U AMIC #### [facility] [address] [place] [address] Dr. Donte Palacio SPEC GRAVITY <=1.005 Abnormal 1.005-<=1.025 [facility] Comment on above: Performed By: #### U AMIC #### [facility] [address] [place] [address] Dr. Donte Palacio UA PROTEIN Negative Normal NEGATIVE/ TRACE [facility] Comment on above: Performed By: #### U AMIC #### [facility] [address] [place] [address] Dr. Donte Palacio Urobilinogen Qn (U) 0.2 {Paige'U}/dL Normal 0.2 - 1. 0 [facility] Comment on above: Performed By: #### U AMIC #### [facility] [address] [place] [address] Dr. Donte Palacio WBC NONE SEEN Normal NONE SEEN [facility] Comment on above: Performed By: #### U AMIC #### [facility] [address] [place] [address] Dr. Donte Palacio [facility]on SARS-CoV-2 (COVID-19) RNA MARQUES+probe Ql (Unsp spec) Not detected Normal NOT DETECTED [facility] Comment on above: Result Comment: This test is not yet approved or cleared by the [place] FDA. When there are no FDA-approved or cleared tests available, and other criteria are met, FDA can make tests available under an emergency access mechanism called an Emergency Use Authorization (EUA). The EUA for this test is supported by the [place] of Health and Human Service's (HHS's) declaration [...] SARS-CoV-2. Performed By: #### I NICOLE #### [facility] [address] [place] [address] Dr. Donte Palacio INFLUENZA A AND B AGon 03-01 [facility] SEE BELOW Normal [facility] Comment on above: Result Comment: Nega tive for Flu A protein angiten. Infection due to Flu A cannot be ruled out. Flu A angiten in the sample may be below the detection limit of the test. Performed By: #### I NICOLE #### [facility] [address] [place] [address] Dr. Donte Palacio INFLUBNEG SEE BELOW Normal [facility] Comment on above: Result Comment: Nega tive for Flu B protein antigen. Infection due to Flu B cannot be ruled out. Flu B antigen in the sample may be below the detection limit of the test. Performed By: #### I NICOLE #### [facility] [address] [place] [address] Dr. Donte Palacio INFLUENZA A AG Negative Normal NEGATIVE SEE COMMENT [facility] Comment on above: Performed By: #### I NICOLE #### [facility] [address] [place] [address] Dr. Donte Palacio INFLUENZA B AG Negative Normal NEGATIVE SEE COMMENT [facility] Comment on above: Performed By: #### I NIOCLE #### [facility] [address] [place], [place] [id number] Dr. Donte Palacio INTERNAL CONTROLS Within Normal Limits Normal Wi thin Normal Limits [facility] Comment on above: Performed By: #### I NICOLE #### [facility] [address] [place] [address] Dr. Donte Palacio Social History Date Type Detail Facility Unknown if ever smoked [email or web address] Other Sex Assigned At Sex Assigned At Bir th [email or web address] Other Vital Signs Date Time Vital Sign Value Performing Clinician Facility 03-21-2023 16:55-0500 Body height 165.1 cm Nathalia Garcia Other [email or web address] Other 03-21-2023 16:55-0500 Body mass index (BMI) [Ratio] 28.67 kg/m2 Nathalia Garcia Other [email or web address] Other 03-21-2023 16:55-0500 Body temperature 98.1 [degF] Nathalia Garcia Other [email or web address] Other 03-21-2023 16:55-0500 Body weight 78.16 kg Nathalia Garcia Other [email or web address] Other 03-21-2023 16:55-0500 Respiratory rate 18 /min Nathalia Garcia Other [email or web address] Other 03-21-2023 16:55-0500 SaO2% (BldA) [Mass fraction] 98 % Nathalia Garcia Other [email or web address] Other Evaluation note 03-21-2023 Note Date & [...] understanding and is agreeable to treatment plan [email or web address] Other History general Narrative - Reported Note Date & Type Note Facility History general Narrative - Reported Type Medical History Esophageal reflux Medical History chronic depression Surgical History hysterectomy Hospitalization History See Above [email or web address] Other Summary Purpose Family History No Family History Records Found Advance Directives No Advanced Directives Records Found Additional Source Comments INFORMATION SOURCE (unrecogn ized section and content) DATE CREATED AUTHOR 09/07/2022 [facility] REASON FOR VISIT (unrecogniz ed section and [...] BE BASED ON THE PRIMARY CLINICAL RECORDS. [email or web address] provides no warranty or guarantee of the accuracy or completeness of information in this document.
--- NOTE | 2023-10-18 08:11 | XR_ITS ---
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 FINDINGS: Bone mineral density AP spine L1-L4 measures 0.958 g/sq cm. T score -1.9. Osteopenia. Bone mineral density in the femurs measures 0.740 g/sq cm. T score -1.0. Normal XR/XR DEXA axial skeleton IMPRESSION: Stable bone mineral density. Osteopenia. Moderate fracture risk Pharmacologic treatment recommendations * No uniform recommendation applies to all patients. Management plans must be individualized. * Consider initiating pharmacologic treatment in postmenopausal women and men >= 50 years of age who have the following: Primary fracture prevention: * T-score <= - 2.5 at the femoral neck, total hip, lumbar spine, 33% radius (some uncertainty with existing data) by DXA. * Low bone mass (osteopenia: T-score between - 1.0 and - 2.5) at the femoral neck or total hip by DXA with a 10-year hip fracture risk >= 3% or a 10-year major osteoporosis-related fracture risk >= 20% (i.e., clinical vertebral, hip, forearm, or proximal humerus) based on the [place]-adapted FRAXregistered model. Secondary fracture prevention: * Fracture of the hip or vertebra regardless of BMD [4, 5]. * Fracture of proximal humerus, pelvis, or distal forearm in persons with low bone mass (osteopenia: T-score between - 1.0 and - 2.5). The decision to treat should be individualized in persons with a fracture of the proximal humerus, pelvis, or distal forearm who do not have osteopenia or low BMD [12, 13]. Nataly MS, Megan SL, Kalia KL, Mohit EM, Mckenzie KG, AJ, Blanca ES. The clinician's guide to prevention and treatment of osteoporosis. Osteoporos Int. 2021;33(10):1861-0973. doi: 10.1007/u83061-933-63554-r. Epub 2021Jul 27. Erratum in: Osteoporos Int. 2021Oct 26;: PMID: [id number]; PMCID: [id number]. Electronically authenticated by: ANGEL TURNER Date: 10/21/2023 07:48
== END 2023-10-18 08:07 | disposition home or self-care (01) ==
LOC: RAD 08:06
PROVIDERS: PCP Family Medicine; Visit Provider Family Medicine
DX: M81.0 Age-related osteoporosis without current pathological fracture (principal); M85.80 Other specified disorders of bone density and structure, unspecified site
CPT/HCPCS: 77080

== ENCOUNTER 2023-11-19 19:55 | Outpatient (REF) | payer OTHER, SELFPAY ==
--- OUTSIDE RECORDS SUMMARY | 2023-11-19 19:59 | XMS_ITS | CCD ---
Author Organization [facility] Care Team Providers Care Limited Radiology Technician Name Role Phone ROSA ELENA Dickerson, DR MENDOZA Primary Care Unavailable ROSA ELENA ., DR MENDOZA Consulting Unavailable ROSA ELENA ., DR MENDOZA Attending Unavailable ROSA ELENA ., DR MENDOZA Admitting Unavailable [place], DR ANGEL Medeiros Consulting Unavailable ROSA ELENA [...] BASO # 0.1 103/ul Normal 0.0-0.1 [facility] Comment on above: Performed By: #### I NICOLE #### [facility] [address] [place] [address] Dr. Donte Palacio Basophils/100 WBC (Bld) 0.7 % Normal 0.2-2.0 [facility] Comment on above: Performed By: #### I NICOLE #### [facility] [address] [place] [address] Dr. Donte Palacio EO # 0.1 103/ul Normal 0.0-0.7 [facility] Comment on above: Performed By: #### I NICOLE #### [facility] [address] [place] [address] Dr. Donte Palacio Eosinophils/100 WBC (Bld) 1.6 % Normal 0.9-7.0 [facility] Comment on above: Performed By: #### I NICOLE #### [facility] [address] [place] [address] Dr. Donte Palacio Erythrocyte distribution width (RBC) [Ratio] 13.1 % Normal 11.0-15.0 [facility] Comment on above: Performed By: #### I NICOLE #### [facility] [address] [place] [address] Dr. Donte Palacio Hematocrit (Bld) [Volume fraction] 40.4 % Normal 36.0-48.0 [facility] Comment on above: Performed By: #### I NICOLE #### [facility] [address] [place] [address] Dr. Donte Palacio Hemoglobin (Bld) [Mass/Vol] 13.2 g/dL Normal 12.0-16.0 [facility] Comment on above: Performed By: #### I NICOLE #### [facility] [address] [place] [address] Dr. Donte Palacio IG # 0.02 10e3/ul Normal 0.00-0.03 [facility] Comment on above: Performed By: #### I NICOLE #### [facility] [address] [place] [address] Dr. Donte Palacio IG % 0.3 % Normal 0.0-0.5 [facility] Comment on above: Performed By: #### I NICOLE #### [facility] [address] [place] [address] Dr. Donte Palacio LYMPH # 2.0 103/ul Normal 1.2-3.8 [facility] Comment on above: Performed By: #### I NICOLE #### [facility] [address] [place] [address] Dr. Donte Palacio Lymphocytes/100 WBC (Bld) 30.4 % Normal 20.5-60.0 [facility] Comment on above: Performed By: #### I NICOLE #### [facility] [address] [place] [address] Dr. Donte Palacio MANUAL DIFF REQ NO Normal [facility] Comment on above: Performed By: #### I NICOLE #### [facility] [address] [place] [address] Dr. Donte Palacio MCH (RBC) [Entitic mass] 29.2 pg Normal 26.7-34.0 [facility] Comment on above: Performed By: #### I NICOLE #### [facility] [address] [place] [address] Dr. Donte Palacio MCHC (RBC) [Mass/Vol] 32.7 g/dL Normal 29.9-35.2 [facility] Comment on above: Performed By: #### I NICOLE #### [facility] [address] [place] [address] Dr. Donte Palacio MCV (RBC) [Entitic vol] 89.4 fL Normal 81.0-99.0 [facility] Comment on above: Performed By: #### I NICOLE #### [facility] [address] [place] [address] Dr. Donte Palacio MONO # 0.5 103/ul Normal 0.3-0.8 [facility] Comment on above: Performed By: #### I NICOLE #### [facility] [address] [place] [address] Dr. Donte Palacio Monocytes/100 WBC (Bld) 7.2 % Normal 1.7-12.0 [facility] Comment on above: Performed By: #### I NICOLE #### [facility] [address] [place] [address] Dr. Donte Palacio NEUT # 4.0 103/ul Normal 1.4-6.5 [facility] Comment on above: Performed By: #### I NIOCLE #### [facility] [address] [place] [address] Dr. Donte Palacio Neutrophils/100 WBC (Bld) 59.8 % Normal 43.0-75.0 [facility] Comment on above: Performed By: #### I NICOLE #### [facility] [address] [place] [address] Dr. Donte Palacio Platelet mean volume (Bld) [Entitic vol] 10.2 fL Normal 9.5-13.5 [facility] Comment on above: Performed By: #### I NICOLE #### [facility] [address] [place] [address] Dr. Donte Palacio PLT 246 103/ul Normal 150-450 [facility] Comment on above: Performed By: #### I NICOLE #### [facility] [address] [place] [address] Dr. Donte Palacio RBC 4.52 106/ul Normal 4.20-5.40 [facility] Comment on above: Performed By: #### I NICOLE #### [facility] [address] [place] [address] Dr. Donte Palacio WBC 6.7 103/ul Normal 4.0-11.0 [facility] Comment on above: Performed By: #### I NICOLE #### [facility] [address] [address] [address] Donte Palacio CULTURE URINEon 08-28-2022 CULTURE URINE Culture Observations: NO GROWTH. Normal [facility] Comment on above: Performed By: #### U RCX #### [facility] [address] [address] [address] Donte Palacio FREE T3on 08-28-2022 FREE T3 2.80 pg/mlL Normal 2.18-3.98 [facility] Comment on above: Performed By: #### C MP, LIPID, T4, FT3, TSH #### [facility] [address] [address] [address] Donte Palacio GLYCOHEMOGLOBIN A1Con 2022 ADA RECOMMENDATION SEE BELOW Normal [facility] Comment on above: Result Comment: ADA RECOMMENDED LIMIT 4.0 - 6.0 ADA THERAPEUTIC TARGET < 7.0 ACTION SUGGESTED > 7.0 Performed By: #### A 1C #### [facility] [address] [place] [address] Dr. Donte Palacio Glucose [Mass/Vol] 100 mg/dL Normal [facility] Comment on above: Performed By: #### A 1C #### [facility] [address] [address] [address] Donte Palacio HbA1c (Bld) [Mass fraction] 5.1 % Normal 4.5-6.2 [facility] Comment on above: Performed By: #### A 1C #### [facility] [address] [address] [address] Donte Palacio IRONon 08-28-2022 Iron [Mass/Vol] 74.0 ug/dL Normal 50.0-170.0 [facility] Comment on above: Performed By: #### I NICOLE #### [facility] [address] [place] [address] Dr. Donte Palacio LIPID PROFILEon 08-28-2022 CHOL-HDL RATIO NORM SEE BELOW Normal [facility] Comment on above: Result Comment: 3.3 - 4.4 LOW RISK 4.4 - 7.1 AVERAGE RISK 7.1 - 11.0 MODERATE RISK >11.0 HIGH RISK Performed By: #### C MP, LIPID, T4, FT3, TSH #### [facility] [address] [address] [address] Donte Palacio Cholesterol [Mass/Vol] 212 mg/dL Critically high <=200 [facility] Comment on above: Performed By: #### C MP, LIPID, T4, FT3, TSH #### [facility] [address] [address] [address] Donte Palacio Cholesterol in HDL [Mass/Vol] 71 mg/dL Critically high 40-60 [facility] Comment on above: Performed By: #### C MP, LIPID, T4, FT3, TSH #### [facility] [address] [place] [address] Dr. Donte Palacio Cholesterol in LDL [Mass/Vol] 117.2 mg/dL Normal [facility] Comment on above: Performed By: #### C MP, LIPID, T4, FT3, TSH #### [facility] [address] [place] [address] Dr. Donte Palacio Cholesterol.total/Cho lesterol in HDL [Mass ratio] 3.0 {ratio} Normal [facility] Comment on above: Performed By: #### C MP, LIPID, T4, FT3, TSH #### [facility] [address] [place] [address] Dr. Donte Palacio HDL NORMAL > or = 60 mg/dl - LOW CARDIOVASCULAR RISK <40 mg/dl - HIGH CARDIOVASCULAR RISK Normal [facility] Comment on above: Performed By: #### C MP, LIPID, T4, FT3, TSH #### [facility] [address] [place] [address] Dr. Donte Palacio LDL CALC NORMAL SEE BELOW Normal [facility] Comment on above: Result Comment: <100 mg/dl OPTIMAL 100 - 129 mg/dl NEAR OR ABOVE OPTIMAL 130 - 159 mg/dl BORDERLINE HIGH 160 - 189 mg/dl HIGH >190 mg/dl VERY HIGH Performed By: #### C MP, LIPID, T4, FT3, TSH #### [facility] [address] [address] [address] Donte Palacio Triglyceride [Mass/Vol] 119 mg/dL Normal <=150 [facility] Comment on above: Performed By: #### C MP, LIPID, T4, FT3, TSH #### [facility] [address] [place], [place] [address] Dr. Donte Palacio VLDL CALC 23.8 mg/dL Normal [facility] Comment on above: Performed By: #### C MP, LIPID, T4, FT3, TSH #### [facility] [address] [place], [place] [address] Dr. Donte Palacio MG MAMM SCREEN 3D JAYLA CADon 08-28-2022 MG MAMM SCREEN 3D JAYLA CAD Patient: ARSENIO MCINTOSH Exam Date: 08/28/2022 : 1970 Gender:F Ordering : DR KELLY CUBA . Admission #: [id number] Family : Order #: [id number] CLICK HERE TO VIEW EXAM RADIOLOGY REPORT [...] unknown cancer at age 79. LOCATION: [facility] BREAST COMPOSITION: Scattered areas fibroglandular density. [...] Bradford MD on 08/28/2022 at 11:04 Normal [facility] PROF 14(COMP METB)on 023 Albumin [Mass/Vol] 4.1 g/dL Normal 3.4-5.0 [facility] Comment on above: Performed By: #### C MP, LIPID, T4, FT3, TSH #### [facility] [address] [place] [address] Dr. Donte Palacio Albumin/Globulin [Mass ratio] 1.1 {ratio} Normal [facility] Comment on above: Performed By: #### C MP, LIPID, T4, FT3, TSH #### [facility] [address] [place] [address] Dr. Donte Palacio ALP [Catalytic activity/Vol] 77 U/L Normal 46-116 [facility] Comment on above: Performed By: #### C MP, LIPID, T4, FT3, TSH #### [facility] [address] [place] [address] Dr. Donte Palacio ALT [Catalytic activity/Vol] 32 U/L Normal 14-59 [facility] Comment on above: Performed By: #### C MP, LIPID, T4, FT3, TSH #### [facility] [address] [place] [address] Dr. Donte Palacio Anion gap [Moles/Vol] 11.5 mmol/L Normal [facility] Comment on above: Performed By: #### C MP, LIPID, T4, FT3, TSH #### [facility] [address] [place] [address] Dr. Donte Palacio AST [Catalytic activity/Vol] 21 U/L Normal 15-37 [facility] Comment on above: Performed By: #### C MP, LIPID, T4, FT3, TSH #### [facility] [address] [place] [address] Dr. Donte Palacio Bilirubin [Mass/Vol] 0.3 mg/dL Normal 0.2-1.0 [facility] Comment on above: Performed By: #### C MP, LIPID, T4, FT3, TSH #### [facility] [address] [place] [address] Dr. Donte Palacio Calcium [Mass/Vol] 9.1 mg/dL Normal 8.5-10.1 [facility] Comment on above: Performed By: #### C MP, LIPID, T4, FT3, TSH #### [facility] [address] [address] [address] Donte Palacio Chloride [Moles/Vol] 102 mmol/L Normal 98-107 [facility] Comment on above: Performed By: #### C MP, LIPID, T4, FT3, TSH #### [facility] [address] [place] [address] Dr. Donte Palacio CO2 [Moles/Vol] 31.7 mmol/L Normal 21.0-32.0 [facility] Comment on above: Performed By: #### C MP, LIPID, T4, FT3, TSH #### [facility] [address] [address] [address] Donte Palacio Creatinine [Mass/Vol] 0.75 mg/dL Normal 0.55-1.02 [facility] Comment on above: Performed By: #### C MP, LIPID, T4, FT3, TSH #### [facility] [address] [place] [address] Dr. Donte Palacio EGFR-AF SYRIAN >60 Normal >=60 [facility] Comment on above: Performed By: #### C MP, LIPID, T4, FT3, TSH #### [facility] [address] [place] [address] Dr. Donte Palacio EGFR-NON AF SYRIAN >60 Normal >=60 [facility] Comment on above: Performed By: #### C MP, LIPID, T4, FT3, TSH #### [facility] [address] [place] [address] Dr. Donte Palacio Globulin (S) [Mass/Vol] 3.8 g/dL Normal [facility] Comment on above: Performed By: #### C MP, LIPID, T4, FT3, TSH #### [facility] [address] [place] [address] Dr. Donte Palacio Glucose [Mass/Vol] 87 mg/dL Normal 74-106 [facility] Comment on above: Performed By: #### C MP, LIPID, T4, FT3, TSH #### [facility] [address] [place] [address] Dr. Donte Palacio Potassium [Moles/Vol] 4.2 mmol/L Normal 3.5-5.1 [facility] Comment on above: Performed By: #### C MP, LIPID, T4, FT3, TSH #### [facility] [address] [place] [address] Dr. Donte Palacio Protein [Mass/Vol] 7.9 g/dL Normal 6.4-8.2 [facility] Comment on above: Performed By: #### C MP, LIPID, T4, FT3, TSH #### [facility] [address] [place] [address] Dr. Donte Palacio Sodium [Moles/Vol] 141 mmol/L Normal 136-145 [facility] Comment on above: Performed By: #### C MP, LIPID, T4, FT3, TSH #### [facility] [address] [place] [address] Dr. Donte Palacio Urea nitrogen [Mass/Vol] 12.0 mg/dL Normal 7.0-18.0 [facility] Comment on above: Performed By: #### C MP, LIPID, T4, FT3, TSH #### [facility] [address] [place] [address] Dr. Donte Palacio Urea nitrogen/Creatinine [Mass ratio] 16.0 mg/mg Normal [facility] Comment on above: Performed By: #### C MP, LIPID, T4, FT3, TSH #### [facility] [address] [place] [address] Dr. Donte Palacio T4on 08-28-2022 T4 [Mass/Vol] 8.90 ug/dL Normal 4.80-13.90 [facility] Comment on above: Performed By: #### C MP, LIPID, T4, FT3, TSH #### [facility] [address] [place] [address] Dr. Donte Palacio TSHon 08-28-2022 TSH 1.998 uIU/mL Normal 0.358-3.740 [facility] Comment on above: Performed By: #### C MP, LIPID, T4, FT3, TSH #### [facility] [address] [address] [address] Donte Palacio UA RANDOM W/MICROSCOPICon BACTERIA TRACE Abnormal NONE SEEN [facility] Comment on above: Performed By: #### U AMIC #### [facility] [address] [place] [address] Dr. Donte Palacio Bilirubin Ql (U) Negative Normal NEGATIVE [facility] Comment on above: Performed By: #### U AMIC #### [facility] [address] [place] [address] Dr. Donte Palacio CAST NONE SEEN Normal NONE SEEN [facility] Comment on above: Performed By: #### U AMIC #### [facility] [address] [place] [address] Dr. Donte Palacio Clarity (U) CLEAR Normal CLEAR [facility] Comment on above: Performed By: #### U AMIC #### [facility] [address] [place] [address] Dr. Donte Palacio Color (U) LT. YELLOW Normal YELLOW [facility] Comment on above: Performed By: #### U AMIC #### [facility] [address] [place] [address] Dr. Donte Palacio Crystals LM Nom (Urine sed) NONE SEEN Normal NONE SEEN [facility] Comment on above: Performed By: #### U AMIC #### [facility] [address] [place] [address] Dr. Donte Palacio Epithelial cells LM Ql (Urine sed) RARE Normal NONE SEEN /RARE [facility] Comment on above: Performed By: #### U AMIC #### [facility] [address] [place] [address] Dr. Donte Palacio Glucose Ql (U) Negative Normal NEGATIVE [facility] Comment on above: Performed By: #### U AMIC #### [facility] [address] [place] [address] Dr. Donte Palacio Hemoglobin Ql (U) TRACE-INTACT Abnormal NEGATIVE [facility] Comment on above: Performed By: #### U AMIC #### [facility] [address] [place] [address] Dr. Donte Palacio Ketones Ql (U) Negative Normal NEGATIVE [facility] Comment on above: Performed By: #### U AMIC #### [facility] [address] [place] [address] Dr. Donte Palacio LEUKOCYTES Negative Normal NEGATIVE [facility] Comment on above: Performed By: #### U AMIC #### [facility] [address] [place] [address] Dr. Donte Palacio MUCOUS NONE SEEN Normal NONE SEEN [facility] Comment on above: Performed By: #### U AMIC #### [facility] [address] [place] [address] Dr. Donte Palacio Nitrite Ql (U) Negative Normal NEGATIVE [facility] Comment on above: Performed By: #### U AMIC #### [facility] [address] [place] [address] Dr. Donte Palacio pH (U) 6.0 [pH] Normal 5-9 [facility] Comment on above: Performed By: #### U AMIC #### [facility] [address] [place] [address] Dr. Donte aPlacio RBC 0-2 Normal 0-2 [facility] Comment on above: Performed By: #### U AMIC #### [facility] [address] [place] [address] Dr. Donte Palacio SPEC GRAVITY <=1.005 Abnormal 1.005-<=1.025 [facility] Comment on above: Performed By: #### U AMIC #### [facility] [address] [address] [address] Donte Palacio UA PROTEIN Negative Normal NEGATIVE/ TRACE [facility] Comment on above: Performed By: #### U AMIC #### [facility] [address] [place] [address] Dr. Donte Palacio Urobilinogen Qn (U) 0.2 {Paige'U}/dL Normal 0.2 - 1. 0 [facility] Comment on above: Performed By: #### U AMIC #### [facility] [address] [place] [address] Dr. Donte Palacio WBC NONE SEEN Normal NONE SEEN [facility] Comment on above: Performed By: #### U AMIC #### [facility] [address] [place] [address] Dr. Donte Palacio Covid-19 PCR ([facility])on SARS-CoV-2 (COVID-19) RNA MARQUES+probe Ql (Unsp spec) Not detected Normal NOT DETECTED [facility] Comment on above: Result Comment: This test is not yet approved or cleared by the [place] FDA. When there are no FDA-approved or cleared tests available, and other criteria are met, FDA can make tests available under an emergency access mechanism called an Emergency Use Authorization (EUA). The EUA for this test is supported by the [employer] of Health and Human Service's (HHS's) declaration [...] SARS-CoV-2. Performed By: #### I NICOLE #### [facility] [address] [place] [address] Dr. Donte Palacio INFLUENZA A AND B AGon 03-01 [facility] SEE BELOW Normal [facility] Comment on above: Result Comment: Nega tive for Flu A protein angiten. Infection due to Flu A cannot be ruled out. Flu A angiten in the sample may be below the detection limit of the test. Performed By: #### I NICOLE #### [facility] [address] [place] [address] Dr. Donte Palacio [facility] SEE BELOW Normal [facility] Comment on above: Result Comment: Nega tive for Flu B protein antigen. Infection due to Flu B cannot be ruled out. Flu B antigen in the sample may be below the detection limit of the test. Performed By: #### I NICOLE #### [facility] [address] [place], [place] [address] Dr. Donte Palacio INFLUENZA A AG Negative Normal NEGATIVE SEE COMMENT [facility] Comment on above: Performed By: #### I NICOLE #### [facility] [address] [place], [place] [address] Dr. Donte Palacio INFLUENZA B AG Negative Normal NEGATIVE SEE COMMENT [facility] Comment on above: Performed By: #### I NICOLE #### [facility] [address] [address] [address] Donte Palacio INTERNAL CONTROLS Within Normal Limits Normal Wi thin Normal Limits [facility] Comment on above: Performed By: #### I NICOLE #### [facility] [address] [address] [address] Donte Palacio Vital Signs Date Time Vital Sign Value Performing Clinician Facility 03-21-2023 16:55-0500 Body height 165.1 cm Nathalia Garcia Other [facility] Other 03-21-2023 16:55-0500 Body mass index (BMI) [Ratio] 28.67 kg/m2 Nathalia Garcia Other [facility] Other 03-21-2023 16:55-0500 Body temperature 98.1 [degF] Nathalia Garcia Other [facility] Other 03-21-2023 16:55-0500 Body weight 78.16 kg Nathalia Garcia Other [facility] Other 03-21-2023 16:55-0500 Respiratory rate 18 /min Nathalia Garcia Other [facility] Other 03-21-2023 16:55-0500 SaO2% (BldA) [Mass fraction] 98 % Nathalia Garcia Other [facility] Other Encounters Encounter Date Encounter Type Care Provider Facility Start: 03-21-2023 End: 03-21-2023 ambulatory Nathalia Garcia Other [facility] Other Start: 03-21-2023 Office outpatient ne w 30 minutes Nathalia Jose [facility] Start: 08-29-2022 Encounter for genera l adult medical examination without abnormal findings DR KELLY CUBA . [facility] Start: 08-28-2022 End: 08-29-[address] KELLY CUBA . Facility: Start: 08-28-2022 End: 08-29-2022 Encounter for general adult medical examination without abnormal findings DR KELLY CUBA . Facility:[facility] Start: 03-01-2022 End: 03-01-[address] KELLY CUBA . Facility: Payers Date Payer Category Payer Unknown [id number] 1970 Unknown [id number] 1960 Unknown [id number] Private Health Insurance [id number] Social History Date Type Detail Facility Unknown if ever smoked [facility] Other Sex Assigned At Sex Assigned At Bir th [facility] Other Evaluation note 03-21-2023 Note Date & [...] understanding and is agreeable to treatment plan [facility] Other History general Narrative - Reported Note Date & Type Note Facility History general Narrative - Reported Type Medical History Esophageal reflux Medical History chronic depression Surgical History hysterectomy Hospitalization History See Above [facility] Other Summary Purpose Family History No Family History Records Found Advance Directives No Advanced Directives Records Found Additional Source Comments INFORMATION SOURCE (unrecogn ized section and content) DATE CREATED AUTHOR 09/07/2022 [facility] REASON FOR VISIT (unrecogniz ed [...] BE BASED ON THE PRIMARY CLINICAL RECORDS. [email or web address] provides no warranty or guarantee of the accuracy or completeness of information in this document.
[2023-11-25 11:08] LABS: Age Gdln ACOG Testing Note (.); HPV Aptima Negative (Negative); IGP, Aptima HPV, rfx 16/18,45 Note (.)
== END 2023-11-19 19:56 | disposition home or self-care (01) ==
LOC: LAB 19:55
PROVIDERS: PCP Family Medicine; Visit Provider Physician Assistant
DX: Z01.419 Encounter for gynecological examination (general) (routine) without abnormal findings (principal)
CPT/HCPCS: 87624; 88175

== ENCOUNTER 2024-11-23 15:07 | Outpatient (REF) | payer BC, SELFPAY ==
--- OUTSIDE RECORDS SUMMARY | 2024-06-23 04:45 | XMS_ITS ---
Author Organization The [facility] in [place] Address [address] [place] [address] Care Team Providers Care Polisher Hand Name Role Phone Kade Maxwell Primary Care Provider Allergies No Known Allergies REASON FOR VISIT fluid in right ear- feels full, pressure, ringing, Patient said she has had a cold for months - sinus congestion, drainage- clear Medications Medication SIG (Take, Route, Frequency, Duration) Notes Start Date End Date Status Calcium Active Cetirizine HCl 10 MG 1 tablet Orally Onc e a day Active Escitalopram Oxalate 20 MG 1 tablet Oral ly Once a day for 90 days Active Ibandronate Sodium 150 MG TAKE 1 TABLET BY MOUTH ONCE A MONTH for 90 Active Meloxicam 15 MG 1 tablet Orally Once a day for 30 days 06/05/2024 Active Multivital Active Pantoprazole Sodium 40 MG TAKE 1 TABLET BY MOUTH EVERY DAY for 90 Active Amoxicillin-Pot Clavulanate 875-125 MG 1 tablet Orally every 12 hrs for 10 days 06/23/2024 Active Social History Tobacco Use: Social History Observation Description Date Details (start date - stop date) Former Smoker 04/01/1987 - 04/01/1989 Tobacco Use/Smoking Question Answer Notes Patient is a former smoker When did you start smoking? 04/01/1987 When did you stop smoking? 04/01/1989 How long has it been since you last smoked? > 10 years Additional Findings: Tobacco Non-User Current no n-smoker Vital Signs Weight 175.8 lbs 06/23/2024 Height 65 in 06/23/2024 Blood pressure systolic 94 mm Hg 06/24/19 25 Blood pressure diastolic 62 mm Hg 025 Temperature 98.9 degrees Fahrenheit 06/24/19 BMI 29.25 kg/m2 06/23/2024 Encounters Encounter Location Date Provider Diagnosis [facility] [address] [place] [address] 06/23/2024 Kade Maxwell Acute otitis media, unspecified otitis media type H66.90 and Otalgia, unspecified laterality H92.09 Assessments Encounter Date Diagnosis (ICD Code) Assessment Notes Treatment Notes Treatment Clinical Notes Section Notes 06/23/2024 Acute otitis media, unspecified otitis media type (ICD-10 - H66.90) You have been prescribed antibiotics for otitis media. Antibiotics may bother your stomach, so try taking them with a light meal (unless instructed otherwise by your pharmacist). It is important to take them until they are finished. You can use ruek-aus-rylmxvq acetaminophen or ibuprofen if needed for pain. You have been prescribed antibiotics. You should be extra vigilant about hand washing or using hand box cutter gel. You should follow up with your Primary Care Physician or return to clinic if not improving in the next 3-5 days. 06/23/2024 Otalgia, unspecified laterality (ICD-10 - H92.09) Plan Of Treatment Medication Medication Name Sig Start Date Stop Date Notes Amoxicillin-Pot Clavulanate 875-125 MG 1 tablet Orally every 12 hrs for 10 days 06/23/2024 Treatment Notes Assessment Notes Acute otitis media, unspecif ied otitis media type You have been prescribed antibiotics for otitis media. Antibiotics may bother your stomach, so try taking them with a light meal (unless instructed otherwise by your pharmacist). It is important to take them until they are finished. You can use dwvo-qvd-asujfho acetaminophen or ibuprofen if needed for pain. You have been prescribed antibiotics. You should be extra vigilant about hand washing or using hand box cutter gel. You should follow up with your Primary Care Physician or return to clinic if not improving in the next 3-5 days. Next Appt Details Follow Up: 3-5 days, if no i mprovement, Reason: Progress Notes * Ameena MCINTOSH LDOB:1970 ([age] yo F)Acc No.[id number]:06/23/2024 Progress Note Patient: Ameena CAMPBELL Provider: Marguerite Maxwell ([facility])MD :1970 A ge:54 Y S ex:Female Date:06/23/2024 Address:[address] [place], [place] [id number] Check In:08:31 AM ESTCheck O ut:09:05 AM EST Subjective: * Chief Complaints: * F luid in right ear- feels full, pressure, ringingPatient said she has had a cold for months - sinus congestion, drainage- clear * HPI: O titis Media: The patient complains of s ymptoms of an ear infection.? The symptoms have been present for 1 -2 days. The symptoms are m oderate. Symptomatic treatment has included O TC medication. Associated symptoms include p ain in one or both ears, fever. * ROS: E NT: Comments S ee HPI for details. C ardiovascular: Edema d enies. P alpitations d enies. ? R espiratory: Chest pain d enies. C ough d enies. ? G astrointestinal: Abdominal pain d enies. D ecreased appetite d enies. S kin: Rash d enies. * Active Problem List J15.8 Pneumonia due to oth er specified bacteria Modified On:08/15/2022 Status:confirmed M25.522 Pain in left elbow Modified On:08/15/2022 Status:confirmed M25.532 Pain in left wrist Modified On:08/15/2022 Status:confirmed R00.0 Tachycardia Modified On:08/15/2022 Status:confirmed M85.80 Osteopenia Modified On:08/15/2022U Status:confirmed M25.562 Left knee pain Modified On:08/15/2022U Status:confirmed M25.551 Hip pain, right Modified On:08/15/2022 Status:confirmed M25.552 Hip pain, left Modified On:08/15/2022 Status:confirmed J20.9 Acute bronchitis Modified On:08/15/2022U Status:confirmed K29.70 Gastritis Modified On:08/15/2022 Status:confirmed Z00.00 Well adult Modified On:08/20/2022 Status:confirmed K64.9 Hemorrhoids Modified On:08/15/2022 Status:confirmed G44.209 Tension headache Modified On:08/15/2022 Status:confirmed J30.2 Allergic rhinitis, s easonal Modified On:08/15/2022 Status:confirmed M75.81 Tendinitis of right shoulder Modified On:08/15/2022 Status:confirmed L82.1 Keratosis, seborrhei c Modified On:08/15/2022 Status:confirmed D18.00 Capillary hemangioma Modified On:08/15/2022 Status:confirmed F41.8 Anxiety and depressi on Modified On:08/15/2022 Status:confirmed U07.1 COVID-19 Modified On:04/08/2023 Status:confirmed E78.00 Hypercholesterolemia Modified On:09/09/2023 Status:confirmed * Medical History: * Surgical History: H YSTERECTOMY TOTAL * Hospitalization/Major Diagno stic Procedure: D enies Past Hospitalization * Family History: F ather: alive 85 yrs. M other: alive 82 yrs, Menieres syndrome, COPD, diagnosed with Diabetes mellitus without mention of complication, type II or unspecified type, not stated as uncontrolled. S ister(s): Clotting disorder, Menieres syndrome, Pre-diabetes. S on(s): depression.?3 sister(s) . 1 daughter(s) . . * Social History: T obacco Use: T obacco Use/Smoking P atient is a f ormer smoker W hen did you start smoking? 0 04/01/1987 W hen did you stop smoking? 0 04/01/1989 H ow long has it been since you last smoked??> 10 years A dditional Findings: Tobacco Non-User C urrent non-smoker * Medications: T akingCalcium Cetirizine HCl 10 MG Tablet 1 tablet Orally Once a day Escitalopram Oxalate 20 MG Tablet 1 tablet Orally Once a day Ibandronate Sodium 150 MG Tablet TAKE 1 TABLET BY MOUTH ONCE A MONTH Meloxicam 15 MG Tablet 1 tablet Orally Once a day Multivital Pantoprazole Sodium 40 MG Tablet Delayed Release TAKE 1 TABLET BY MOUTH EVERY DAY Taking Calcium Taking Cetirizine HCl 10 MG Tablet 1 tablet Orally Once a day Taking Escitalopram Oxalate 20 MG Tablet 1 tablet Orally Once a day Taking Ibandronate Sodium 150 MG Tablet TAKE 1 TABLET BY MOUTH ONCE A MONTH Taking Meloxicam 15 MG Tablet 1 tablet Orally Once a day Taking Multivital Taking Pantoprazole Sodium 40 MG Tablet Delayed Release TAKE 1 TABLET BY MOUTH EVERY DAY DiscontinuedAzithromycin 250 MG Tablet 2 tabs today then 1 tab Orally daily Benzonatate 200 MG Capsule 1 capsule as needed Orally Three times a day Medication List reviewed and reconciled with the patientDiscontinued Azithromycin 250 MG Tablet 2 tabs today then 1 tab Orally daily Discontinued Benzonatate 200 MG Capsule 1 capsule as needed Orally Three times a day Medication List reviewed and reconciled with the patient * Allergies: N .K.D.A.no[Allergies Verified] Objective: * Vitals: W t:175.8lbs, Ht: 65 in, BP:94/62mm Hg, Temp:98.9F, BMI:29.25Index, Ht-cm: 165.1 cm, Wt-k.74 kg. * Examination: G eneral Examination: GENERAL APPEARANCE: in no acute distress, well developed, well nourished. EYES: pupils equal, round, reactive to light and accomodations, sclera non-icteric. ENT: normocephalic, autraumatic. EARS: R OM. ORAL CAVITY: mucosa moist. THROAT: no erythema, no exudate. LUNGS: clear to auscultation bilaterally. CARDIO: regular rate and rhythm, S1, S2 normal, no murmurs. ABDOMEN: soft, nontender, nondistended, bowel sounds present, normal. SKIN: warm and dry, no suspicious lesions. EXTREMITIES: no clubbing, cyanosis, or edema. NEUROLOGIC: nonfocal, motor strength normal upper and lower extremities, sensory exam intact. NECK/THYROID: neck supple, full range of motion, no cervical lymphadenopathy. Assessment: * Assessment: 1. A cute otitis media, unspecified otitis media type - H66.90 (Primary) 2 .?Otalgia, unspecified laterality - H92.09 Plan: * Treatment: * Procedure Codes: * Preventive Medicine: Screenings/Counseling: B [place] ACTION PLAN Above Normal BMI Follow-up D ietary management education, guidance, and counseling * Follow Up: 3 -5 days, if no improvement * * Sign off status: Completed Visit Status: C HK (Check Out) true * Provider: Marguerite Maxwell ([facility])MD Date: 0 06/23/2024 Generated for Printi ng/Faxing/eTransmitting on: 0 11/23/2024 03:10 PM EDT History and Physical Notes * HPI (History of Present Illness) Category Sub-Category Detail Notes Category Not es Otitis Media The patient complains of symptoms of an e ar infection The symptoms have been present for 1-2 d ays The symptoms are moderate Symptomatic treatment has included OTC m edication Associated symptoms include pain in one or both ears, fever Examination Category Sub-Category Detail Notes Category Not es General Examination GENERAL APPEARANCE: in no ac mari distress, well developed, well nourished EYES: pupils equal, round, reactive to light and accomodations, sclera non-icteric EARS: R OM THROAT: no erythema, no exud ate CARDIO: regular rate and rhy thm, S1, S2 normal, no murmurs LUNGS: clear to auscultatio n bilaterally ABDOMEN: soft, nontender, non distended, bowel sounds present, normal NEUROLOGIC: nonfocal, motor stre ngth normal upper and lower extremities, sensory exam intact SKIN: warm and dry, no tita picious lesions EXTREMITIES: no clubbing, cyanosi s, or edema ORAL CAVITY: mucosa moist ENT: normocephalic, autra umatic NECK/THYROID: neck supple, full ra nge of motion, no cervical lymphadenopathy
--- OUTSIDE RECORDS SUMMARY | 2024-06-29 04:20 | XMS_ITS ---
Author Organization The [facility] in [place] Address [address] [place] [address] Care Team Providers Care Roaster Helper Name Role Phone Kade Maxwell Primary Care Provider REASON FOR VISIT right ear Medications Medication SIG (Take, Route, Frequency, Duration) Notes Start Date End Date Status Cipro 500 MG 1 tablet Orally ever y 12 hrs for 10 days 06/29/2024 Active Encounters Encounter Location Date Provider Diagnosis [facility] [address] [place] [address] 06/29/2024 Kade Alissa Plan Of Treatment Medication Medication Name Sig Start Date Stop Date Notes Cipro 500 MG 1 tablet Orally every 12 hrs for 10 days 06/01 Progress Notes * mAeena MCINTOSH LDOB:1970 ([age] yo F)Acc No.[id number]:06/29/2024 Patient: Ameena CAMPBELL Shayna :1970 A ge:54 Y S ex:Female Address:[address] [place] [address], [place] [address] * Refills Start Cipro Tablet, 500 MG, Orally, 20 Tablet, 1 tablet, every 12 hrs, 10 days, Refills=0 * true * Date: Generated for Ricardo ng/Fabobbyg/eTransmitting on: 0 11/23/2024 03:10 PM EDT
--- OUTSIDE RECORDS SUMMARY | 2024-09-07 13:30 | XMS_ITS ---
Author Organization [facility] [place] Address [address] [place] [address] Care Team Providers Care Network Diagnostic Support Specialist Name Role Phone Kade Maxwell Primary Care Provider Allergies No Known Allergies REASON FOR VISIT left should pain 2 weeks after TDAP Medications Medication SIG (Take, Route, Frequency, Duration) Notes Start Date End Date Status Multivital Active Pantoprazole Sodium 40 MG TAKE 1 TABLET BY MOUTH EVERY DAY for 90 Active Ibandronate Sodium 150 MG TAKE 1 TABLET BY MOUTH ONCE A MONTH for 90 Active Meloxicam 15 MG 1 tablet Orally Once a day for 30 days 06/05/2024 Active Calcium Active Cetirizine HCl 10 MG 1 tablet Orally Onc e a day Active Daypro 600 MG 2 tablets Orally aicha ly for 20 days 09/07/2024 Active Escitalopram Oxalate 20 MG 1 tablet Oral ly Once a day for 90 days Active Social History Tobacco Use: Social History Observation Description Date Details (start date - stop date) Former Smoker 04/01/1987 - 04/01/1989 Tobacco Use/Smoking Question Answer Notes Patient is a former smoker When did you start smoking? 04/01/1987 When did you stop smoking? 04/01/1989 How long has it been since you last smoked? > 10 years Additional Findings: Tobacco Non-User Current no n-smoker AUDIT-C (Standard) Question Answer Notes Did you have a drink containing alcohol in the p ast year? No Points 0 Interpretation Negative Problems Problem Type SNOMED Code ICD Code Onset Dates Problem Status W/U Status Risk Notes Problem Shoulder pain, left (M25.512) Active confirmed Vital Signs Weight 178 lbs 09/07/2024 Height 65 in 09/07/2024 Blood pressure systolic 130 mm Hg 09/08/19 25 Blood pressure diastolic 68 mm Hg 025 BMI 29.62 kg/m2 09/07/2024 Encounters Encounter Location Date Provider Diagnosis [facility] [address] [place] [address] 09/07/2024 Kade Maxwell Shoulder pain, left M25.512 Assessments Encounter Date Diagnosis (ICD Code) Assessment Notes Treatment Notes Treatment Clinical Notes Section Notes 09/07/2024 Shoulder pain, left (ICD-10 - M25.512) if not better -need ROIDs Plan Of Treatment Medication Medication Name Sig Start Date Stop Date Notes Daypro 600 MG 2 tablets Orally daily for 20 days Treatment Notes Assessment Notes Shoulder pain, left if not better -need ROIDs Progress Notes * Ameena MCINTOSH LDOB:1970 ([age] yo F)Acc No.[id number]:09/07/2024 Progress Note Patient: Ameena CAMPBELL Provider: Marguerite Maxwell ([facility])MD :1970 A ge:54 Y S ex:Female Date:09/07/2024 Address:[address] [place], [place] [id number] Check In:05:14 PM ESTCheck O ut:05:32 PM EST Subjective: * Chief Complaints: * l eft should pain 2 weeks after TDAP * HPI: G eneral: 2 eeks ago - had tdap - aboput 2 days after having pain - not warm tothe touch. * Active Problem List J15.8 Pneumonia due to oth er specified bacteria Modified On:08/15/2022/U Status:confirmed M25.522 Pain in left elbow Modified On:08/15/2022/U Status:confirmed M25.532 Pain in left wrist Modified On:08/15/2022U Status:confirmed R00.0 Tachycardia Modified On:08/15/2022U Status:confirmed M85.80 Osteopenia Modified On:08/15/2022/U Status:confirmed M25.562 Left knee pain Modified On:08/15/2022/U Status:confirmed M25.551 Hip pain, right Modified On:08/15/2022 Status:confirmed M25.552 Hip pain, left Modified On:08/15/2022 Status:confirmed J20.9 Acute bronchitis Modified On:08/15/2022 Status:confirmed K29.70 Gastritis Modified On:08/15/2022 Status:confirmed Z00.00 [...] On:04/08/2023 Status:confirmed E78.00 Hypercholesterolemia Modified On:09/09/2023 Status:confirmed M25.512 Shoulder pain, left Modified On:09/07/2024 Status:confirmed * Medical History: * Surgical History: H YSTERECTOMY TOTAL * Hospitalization/Major Diagno stic Procedure: N o Hospitalization History. * Family History: F ather: alive 85 [...] dditional Findings: Tobacco Non-User C urrent non-smoker D rug/Alcohol: A JOHN-C (Standard) D id you have a drink containing alcohol in the past year? N o P oints 0 I nterpretation N egative * Medications: T akingCalcium Cetirizine HCl 10 [...] TAKE 1 TABLET BY MOUTH EVERY DAY Medication List reviewed and reconciled with the patientTaking Calcium Taking Cetirizine HCl 10 MG Tablet [...] TAKE 1 TABLET BY MOUTH EVERY DAY Medication List reviewed and reconciled with the patient * Allergies: N .K.D.A.no[Allergies Verified] Objective: * Vitals: W t:178lbs, Ht: 65 in, BP:130/68mm Hg, BMI:29.62Index, Ht-cm: 165.1 cm, Wt-k.74 kg. * Examination: A bdomen Exam:: S Uperior sholder tendnrenss - not tender over the injection site. Assessment: * Assessment: 1. S houlder pain, left - M25.512 (Primary) Plan: * Treatment: * Procedure Codes: * Preventive Medicine: Screenings/Counseling: B [place] ACTION PLAN Above Normal BMI Follow-up D ietary management education, guidance, and counseling * * Sign off status: Completed Visit Status: C HK (Check Out) true * Provider: Marguerite Maxwell ([facility])MD Date: 0 09/07/2024 Generated for Ricardo sosa/[employer]/eTransmitting on: 0 11/23/2024 08:48 AM EDT History and Physical Notes * HPI (History of Present Illness) Category Sub-Category Detail Notes Category Not es General 2 eeks ago - epstein d tdap - aboput 2 days after having pain - not warm tothe touch Examination Category Sub-Category Detail Notes Category Not es Abdomen Exam: SUperior shold er tendnrenss - not tender over the injection site
--- OUTSIDE RECORDS SUMMARY | 2024-11-23 09:00 | XMS_ITS | Encounter Summary ---
Author Organization [facility] Address [address] [place] [address] Care Team Providers Care Alcohol Rubber Name Role Phone Salvatore Maxwell MD Primary Care Provider [phone] Reason for Visit * Reason Comments Gynecologic Exam Encounter Details Date Type Department Care Team (Late Contact Info) Description 11/23/2024 9:00 AM EDT Office Visit [facility] [address] [address] Ameena Lees PA [address] [place] [address] Well woman exam with routine gynecological exam; Breast cancer screening by mammogram; Encounter for osteoporosis screening in asymptomatic postmenopausal patient; UTI symptoms Social History Tobacco Use Types Packs/Day Years Used Date Smoking Tobacco: Never Assessed Comments No Sex and Gender Information Value Date Recorded Sex Assigned at Not on file Legal Sex Female 10:05 AM EDT Gender Identity Not on file Sexual Orientation Not on file documented as of this encounter Last Filed Vital Signs Vital Sign Reading Time Taken Comments Blood Pressure 128/78 11/23/2024 9:10 AM EDT Pulse - - Temperature - - Respiratory Rate - - Oxygen Saturation - - Inhaled Oxygen Concentration - - Weight 81.6 kg (180 lb) 11/23/2024 9:10 AM EDT Height 165.1 cm (5' 5 ) 11/23/2024 9:10 AM EDT Body Mass Index 29.95 11/23/2024 9:10 AM EDT documented in this encounter Progress Notes * ALFA Ibarra - 11/23/2024 9:00 AM EDT Reason for Appointment: Patient ID: Ameena Coello is a 54 y.o. female who presents for Gynecologic Exam Patient presents today for Annual Exam. MEDICATIONS Current Outpatient Medications Medication Instructions ergocalciferol (VITAMIN D-2) 1.25 mg, Oral, Weekly escitalopram (LEXAPRO) 20 mg, Oral, Daily ibandronate (Boniva) 150 MG tablet TAKE 1 TABLET BY MOUTH ONCE A MONTH pantoprazole (PROTONIX) 40 mg, Oral, Daily ALLERGIES No Known Allergies PROBLEMS Active Ambulatory Problems Diagnosis Date Noted Other osteoporosis without current pathological fracture 11/26/2023 Resolved Ambulatory Problems Diagnosis Date Noted No Resolved Ambulatory Problems Past Medical History: Diagnosis Date Endometriosis Osteopenia HISTORY PAST MEDICAL HISTORY SOCIAL HISTORY Past Medical History: Diagnosis Date Endometriosis Osteopenia Social History Tobacco Use Smoking status: Not on file Smokeless tobacco: Not on file Substance Use Topics Alcohol use: Not on file Drug use: Not on file FAMILY HISTORY No family history on file. SURGICAL HISTORY Past Surgical History: Procedure Laterality Date HYSTERECTOMY Total-both ovaries are out. REVIEW OF SYSTEMS Review of Systems: Review of Systems Constitutional: Negative. HENT: Negative. Eyes: Negative. Respiratory: Negative. Cardiovascular: Negative. Gastrointestinal: Negative. Genitourinary: Positive for urgency. Musculoskeletal: Negative. Skin: Negative. Neurological: Negative. All other systems reviewed and are negative. Hematological: Negative. Endocrine: Negative. Allergic/Immunologic: Negative. OBJECTIVE Objective: Physical Exam Constitutional: Appearance: Normal appearance. She is well-developed. Genitourinary: Vulva normal. Cervix is absent. Uterus is absent. Breasts: Breasts are soft. Right: Normal. Left: Normal. HENT: Head: Normocephalic. Nose: Nose normal. Mouth/Throat: Mouth: Mucous membranes are moist. Cardiovascular: Rate and Rhythm: Normal rate and regular rhythm. Pulmonary: Effort: Pulmonary effort is normal. Breath sounds: Normal breath sounds. Abdominal: General: Bowel sounds are normal. There is no distension. Palpations: Abdomen is soft. Tenderness: There is no abdominal tenderness. There is no guarding or rebound. Musculoskeletal: General: No swelling. Normal range of motion. Cervical back: Normal range of motion. Right lower leg: No edema. Left lower leg: No edema. Neurological: General: No focal deficit present. Mental Status: She is alert and oriented to person, place, and time. Skin: General: Skin is warm and dry. Psychiatric: Mood and Affect: Mood normal. Behavior: Behavior normal. Vitals and nursing note reviewed. Exam conducted with a prototype engineer manager present. Vitals: Estimated body mass index is 29.95 kg/m?? as calculated from the following: Height as of this encounter: 5' 5 . Weight as of this encounter: 180 lb. BP: 128/78 No LMP recorded. Patient has had a hysterectomy. ASSESSMENT & PLAN ICD-10-CM 1. Well woman exam with routine gynecological exam Z01.419 THIN PREP TIS PAP AND HR HPV DNA 2. Breast cancer screening by mammogram Z12.31 Bilateral screening mammogram Bilateral screening mammogram 3. Encounter for osteoporosis screening in asymptomatic postmenopausal patient Z13.820 DEXA bone density Z78.0 Annual: Patient presents today for an annual exam. Patient states she is doing well and has no complaints. Pap was obtained without difficulty and patient given Mammogram/DEXA scan order to have scheduled/obtained. Patient complains of having a lot of bladder pressure and believes it may be a UTI. Patient was given a urine cup for a sample. Pyridium was sent into pharmacy for patient to start taking. Orders Placed This Encounter Procedures Bilateral screening mammogram DEXA bone density Follow Up: Patient is to return in one year for annual unless needed otherwise. Documented by Valery Pryor MA on behalf of: ALFA Ibarra documented in this encounter Plan of Treatment Upcoming Encounters Date Type Department Care Team (Late st Contact Info) Description 11/29/2025 9:00 AM EDT Procedure Visit [facility] [address] [place] [address] Ameena Lees PA [address] [place] [address] Scheduled Orders Name Type Priority Associated Diagnoses Orde r Schedule Bilateral screening mammogram Imaging Routine Breast cancer screening by mammogram Expected: 11/23/2024 (Approximate), Expires: 01/23/2026 DEXA bone density Imaging Routine Encounter for osteoporosis screening in asymptomatic postmenopausal patient Expected: 11/23/2024 (Approximate), Expires: 11/23/2025 THIN PREP TIS PAP AND HR HPV DNA Pathology and Cytology Routine Well woman exam with routine gynecological exam Ordered: 11/23/2024 documented as of this encounter Procedures Procedure Name Priority Date/Time Associated Diagnosis Comments POCT URINALYSIS DIPSTICK Routine 11/23/2024 9:19 AM EDT UTI symptoms PAP SMEAR Routine 11/19/2023 12:00 AM EDT documented in this encounter Results * POCT urinalysis dipstick manually resulted (11/23/2024 9:19 AM EDT) Color, UA Yellow Clarity, UA Clear Glucose, UA Negative Negative - 2000(110) ++++ mg/dL Bilirubin, UA Negative Negative - 4(70) +++ mg/dL Ketones, UA Negative Negative - 160(16) ++++ mg/dL Spec Grav, UA 1.015 1 - 1.03 Blood, UA Negative Negative - 50 Yovany/mcL pH, UA 6.0 5 - 9 Protein, UA Negative Negative - 2000(20) ++++ mg/dL Urobilinogen, UA 1.0 0.2 - 12 mg/dL Leukocytes, UA Negative Negative - 500+++ John/mcL Nitrite, UA Negative Negative - Positive Urine 11/23/2024 9:19 AM EDT us Ameena GRIMM POINT OF CARE TEST ENTER/EDIT OR DERABLES Final Result * Pap Smear (11/19/2023 12:00 AM EDT) Swab Cervical swab / Unknown us Ameena GRIMM LAB CYTOLOGY ORDERABLES Final Re sult EXTERNAL LAB documented in this encounter Visit Diagnoses Diagnosis Well woman exam with routine gynecological exam Routine gynecological examination Breast cancer screening by mammogram Encounter for osteoporosis screening in asymptomatic postmenopausal patient UTI symptoms documented in this encounter Care Teams Alcohol Rubber Relationship Specialty Start Date End Date Salvatore Maxwell MD [address] [place] [address] PCP - General Family Medicine 09/04/22 documented as of this encounter
--- OUTSIDE RECORDS SUMMARY | 2024-11-23 15:10 | XMS_ITS | Clinical Summary ---
Author Organization [facility] Address [address] [place] [address] Care Team Providers Care Supervisor Plastering Name Role Phone Salvatore Maxwell MD Primary Care Provider [phone] Allergies No known active allergies Medications escitalopram (Lexapro) 20 MG tablet Take 20 mg by mouth in the morning. 06/28/2022 Active pantoprazole (ProtoNix) 40 MG EC tablet Take 40 mg by mouth in the morning. 06/28/2022 Active ibandronate (Boniva) 150 MG tablet TAKE 1 TABLET BY MOUTH ONCE A MONTH 04/04/2022 Active ergocalciferol (Vitamin D-2) 1.25 MG (12105 UT) capsule Take 1.25 mg by mouth 1 (one) time per week. Active phenazopyridine (Pyridium) 100 MG tabletIndicatio ns:UTI symptoms Take 1 tablet (100 mg) by mouth 3 (three) times a day as needed for bladder spasms for up to 3 days 9 tablet 11/23/2024 Active Active Problems Problem Noted Date Diagnosed Date Other osteoporosis without current pathological fracture 11/26/2023 Encounters Date Type Department Care Team Description 11/23/2024 9:00 AM EDT Office Visit [facility] [address] [place] [address] [place] [address] Ameena Lees PA Well woman exam with routine gynecological exam; Breast cancer screening by mammogram; Encounter for osteoporosis screening in asymptomatic postmenopausal patient; UTI symptoms 11/23/2024 Bamboo flowsheet [facility] [address] [facility] [address] Ameena Lees PA from Last 3 Months Social History Tobacco Use Types Packs/Day Years Used Date Smoking Tobacco: Never Assessed Comments No Sex and Gender Information Value Date Recorded Sex Assigned at Not on file Legal Sex Female 10:05 AM EDT Gender Identity Not on file Sexual Orientation Not on file Last Filed Vital Signs Vital Sign Reading Time Taken Comments Blood Pressure 128/78 11/23/2024 9:10 AM EDT Pulse - - Temperature - - Respiratory Rate - - Oxygen Saturation - - Inhaled Oxygen Concentration - - Weight 81.6 kg (180 lb) 11/23/2024 9:10 AM EDT Height 165.1 cm (5' 5 ) 11/23/2024 9:10 AM EDT Body Mass Index 29.95 11/23/2024 9:10 AM EDT Plan of Treatment Upcoming Encounters Date Type Department Care Team (Late st Contact Info) Description 11/29/2025 9:00 AM EDT Procedure Visit [facility] [address] [place] [address] Ameena Lees PA [address] [facility] [place] [address] Health Maintenance Due Date Last Done Comments CT Colonography 1969 Colonoscopy 1969 Colorectal Cancer Screening 1969 FIT-DNA 1969 FIT 1969 FOBT 1969 Sigmoidoscopy 1969 Mammogram 2009 Influenza Vaccine (#1) 2024 , 01/13/2023, 01/06/2022, Additional history exists Pap Smear 11/18/2026 11/19/2023 Cervical Cancer Screening 11/16/2027 HPV/Cotest 11/16/2027 11/15/2022 Procedures Procedure Name Priority Date/Time Associated Diagnosis Comments POCT URINALYSIS DIPSTICK Routine 11/23/2024 9:19 AM EDT UTI symptoms PAP SMEAR Routine 11/19/2023 12:00 AM EDT THINPREP PAP AND HPV MRNA E6/E7 W/RFL HPV 16,18/45 Routine 11/15/2022 9:58 AM EDT Well woman exam with routine gynecological exam from Last 3 Months or Most Recently Relevant to Health Maintenance Results * POCT urinalysis dipstick manually resulted [...] CYTOLOGY ORDERABLES Final Re sult EXTERNAL LAB * THINPREP PAP AND HPV MRNA E6/E7 W/RFL HPV 16,18/45 (11/15/2022 9:58 AM EDT) us Ameena GRIM[facility] LAB BLOOD ORDERABLES Final Resul t EXTERNAL LAB from Last 3 Months or Most Recently Relevant to Health Maintenance Insurance [employer] Care Teams Supervisor Plastering Relationship Specialty Start Date End Date Salvatore Maxwell MD [address] [place] [address] PCP - General Family Medicine 09/04/22
--- OUTSIDE RECORDS SUMMARY | 2024-11-23 15:10 | XMS_ITS | Patient Health Record ---
Author Organization [facility] [place] Address [address] [place] [address] Care Team Providers Care Commercial Real Estate Agent Name Role Phone Kade Maxwell Primary Care Provider Allergies No Known Allergies Results Component Value Reference Range Notes COVID-19, Flu A+B IH (Not ye t reviewed by provider) Interpretation: Performing Lab: Notes/Report: COVID NEG FLU A NRG FLU B NEG Control POS Reason For Referral No Information Medications Medication SIG (Take, Route, Frequency, Duration) Notes Start Date End Date Status Multivital Active Cetirizine HCl 10 MG 1 tablet Orally Onc e a day Active Daypro 600 MG 2 tablets Orally aicha ly for 20 days 09/07/2024 Active Ibandronate Sodium 150 MG TAKE 1 TABLET BY MOUTH ONCE A MONTH for 90 Active Meloxicam 15 MG 1 tablet Orally Once a day for 30 days 06/05/2024 Active Escitalopram Oxalate 20 MG TAKE 1 TABLET BY MOUTH EVERY DAY FOR 90 DAYS for 90 Active Calcium Active Pantoprazole Sodium 40 MG TAKE 1 TABLET BY MOUTH EVERY DAY for 90 days Active Immunizations Vaccine Route Administration Date Status Comme nts Flu, Fluarix (16901) 6 mos a nd older, single-dose (7888-5139) Unknown 01/13/2023 Administered Spikevax Moderna 50 mcg/0.5 mL Unknown 01/17/2023 Admin istered Tdap (Boostrix) Unknown 08/25/2024 Administered ZOSTER (SHINGLES) VACCINE (HZV) Unknown 01/06/2022 Admi nistered ZOSTER (SHINGLES) VACCINE (HZV) Unknown 04/06/2022 Admi nistered Social History Tobacco Use: Social History Observation Description Date Details (start date - stop date) Former Smoker 04/01/1987 - 04/01/1989 Tobacco Use/Smoking Question Answer Notes Patient is a former smoker When did you start smoking? 04/01/1987 When did you stop smoking? 04/01/1989 How long has it been since you last smoked? > 10 years Additional Findings: Tobacco Non-User Current no n-smoker Alcohol Screen (Audit-C) Question Answer Notes Did you have a drink contain ing alcohol in the past year? Yes How often did you have 6 or more drinks on one occasion in the past year? Never (0 point) How many drinks did you have on a typical day when you were drinking in the past year? 1 or 2 drinks (0 point) How often did you have a dri nk containing alcohol in the past year? Less than monthly (1 point) Points 1 Interpretation Negative AUDIT-C (Standard) Question Answer Notes Did you have a drink containing alcohol in the p ast year? No Points 0 Interpretation Negative Problems Problem Type SNOMED Code ICD Code Onset Dates Problem Status W/U Status Risk Notes Problem Bacterial pneumonia (51057045) Pneumonia due to other specified bacteria (J15.8) Active confirmed Problem Arthralgia of the upper arm (385954738) Pain in left elbow (M25.522) Active confirmed Problem Pain in wrist (64771091) Pain in left wrist (M25.532) Active confirmed Problem Tachycardia (3090743) Tachycardia (R00.0) Active confirmed Problem Osteopenia (700169726) Osteopenia (M85.80) Active confirmed Problem Left knee pain (760898282728881) Left knee pain (M25.562) Active confirmed Problem Arthralgia of the pelvic region and thigh (731232240) Hip pain, right (M25.551) Active confirmed Problem Arthralgia of the pelvic region and thigh (208768496) Hip pain, left (M25.552) Active confirmed Problem Acute bronchitis (47753501) Acute bronchitis (J20.9) Active confirmed Problem Gastritis (7216313) Gastritis (K29.70) Active c onfirmed Problem Well adult (021023117) Well adult (Z00.00) Active confirmed Problem Hemorrhoids (77611937) Hemorrhoids (K64.9) Active confirmed Problem Tension headache (397406475) Tension headache (G44.209) Active confirmed Problem Seasonal allergic rhinitis (876000671) Allergic rhinitis, seasonal (J30.2) Active confirmed Problem Shoulder joint pain (773847162) Shoulder pain, left (M25.512) Active confirmed Problem Tendinitis of right shoulder (2575195174114086) Tendinitis of right shoulder (M75.81) Active confirmed Problem Seborrheic keratosis (85066070) Keratosis, seborrheic (L82.1) Active confirmed Problem Capillary hemangioma (00442755) Capillary hemangioma (D18.00) Active confirmed Problem Hypercholesterolemia (57994319) Hypercholesterolemia (E78.00) Active confirmed Problem Mixed anxiety and depressive disorder (383397246) Anxiety and depression (F41.8) Active confirmed Problem 128876407 COVID-19 (U07.1) Active confirmed Vital Signs Temperature 98.9 degrees Fahrenheit 06/23/2024 Blood pressure diastolic 68 mm Hg 09/07/2024 Height 65 in 09/07/2024 Blood pressure systolic 130 mm Hg 09/07/2024 Weight 178 lbs 09/07/2024 BMI 29.62 kg/m2 09/07/2024 Encounters Encounter Location Date Provider Diagnosis [address] [place] [address] 05/19/2024 Kade Hoy [facility] [address] [place] [address] 06/08/2024 Kade Hoy Cough R05.[address] [address] 06/10/2024 Kade Hoy Cough R05.9 [facility] [address] [place] [address] 06/29/2024 Kade Hoy [facility] [address] [place] [address] 04/27/2024 Kade Hoy Hypercholesterolemia E78.00 [facility] [address] [place] [address] 06/23/2024 Kade Hoy Acute otitis media, unspecified otitis media type H66.90 and Otalgia, unspecified laterality H92.09 [facility] [address] [place] [address] 04/08/2024 Kade Hoy Acute non-recurrent sinusitis, unspecified location J01.90 and Nasal congestion R09.81 [facility] [address] [place] [address] 06/05/2024 Kade Hoy Cough R05.9 ; Acute non-recurrent sinusitis, unspecified location J01.90 ; Nasal congestion R09.81 and Heel spur, unspecified laterality M77.30 [facility] [address] [place] [address] 09/07/2024 Kade Hoy Shoulder pain, left M25.512 Assessments Encounter Date Diagnosis (ICD Code) Assessment Notes Treatment Notes Treatment Clinical Notes Section Notes 04/08/2024 Acute non-recurrent sinusitis, unspecified location (ICD-10 - J01.90) Rest and drink more liquids, especially water. You may use a humidifier or vaporizer to help keep the drainage moist. Ejyy-oci-cjwptot Nasal Saline may help the stuffy and runny nose. Use Ibuprofen and or Tylenol as needed for fever, chills, body aches or pain. Children 5 years old should not be given rsjj-ipy-rlqpjct cough and cold medications such as guaifenesin and dextromethorphan. If you're over age 5, you may try xsop-djc-yevzwgy cold medications such as guaifenesin and dextromethorphan, or multi-symptom cold reliever such as Dayquil to help reduce the symptoms. Antibiotics have been prescribed. You should take these until completed and follow the directions. Antibiotics can sometimes cause upset stomach, and in rare cases, serious allergic reactions or serious gastrointestinal problems. If you start having severe abdominal pain, severe vomiting, or bloody diarrhea, you should be reevaluated by your physician or urgent care immediately. Follow up with your Primary Care Provider or return to clinic if symptoms do not improve within 3-5 days 06/05/2024 Cough (ICD-10 - R05.9) 09/07/2024 Shoulder pain, left (ICD-10 - M25.512) if not better -need ROIDs 04/27/2024 Hypercholesterolemia (ICD-10 - E78.00) 06/08/2024 Cough (ICD-10 - R05.9) 06/10/2024 Cough (ICD-10 - R05.9) 06/23/2024 Acute otitis media, unspecified otitis media type (ICD-10 - H66.90) You have been prescribed antibiotics for otitis media. Antibiotics may bother your stomach, so try taking them with a light meal (unless instructed otherwise by your pharmacist). It is important to take them until they are finished. You can use fbll-lcz-bkedsmu acetaminophen or ibuprofen if needed for pain. You have been prescribed antibiotics. You should be extra vigilant about hand washing or using hand professor of sport management gel. You should follow up with your Primary Care Physician or return to clinic if not improving in the next 3-5 days. 06/23/2024 Otalgia, unspecified laterality (ICD-10 - H92.09) 06/05/2024 Acute non-recurrent sinusitis, unspecified location (ICD-10 - J01.90) Rest and drink more liquids, especially water. You may use a humidifier or vaporizer to help keep the drainage moist. Sjyr-hyc-jujgpww Nasal Saline may help the stuffy and runny nose. Use Ibuprofen and or Tylenol as needed for fever, chills, body aches or pain. Children 5 years old should not be given xuqo-zup-bpawmua cough and cold medications such as guaifenesin and dextromethorphan. If you're over age 5, you may try ucbo-hee-rcutlum cold medications such as guaifenesin and dextromethorphan, or multi-symptom cold reliever such as Dayquil to help reduce the symptoms. Antibiotics have been prescribed. You should take these until completed and follow the directions. Antibiotics can sometimes cause upset stomach, and in rare cases, serious allergic reactions or serious gastrointestinal problems. If you start having severe abdominal pain, severe vomiting, or bloody diarrhea, you should be reevaluated by your physician or urgent care immediately. Follow up with your Primary Care Provider or return to clinic if symptoms do not improve within 3-5 days 04/08/2024 Nasal congestion (ICD-10 - R09.81) 06/05/2024 Nasal congestion (ICD-10 - R09.81) 06/05/2024 Heel spur, unspecifi ed laterality (ICD-10 - M77.30) Plan Of Treatment Pending Test Test Name Order Date CMP (COMPLETE METABOLIC PANEL) 3 CMP (COMPLETE METABOLIC PANEL) 4 HEMOGLOBIN A1C (GLYCO) 08/20/2022 HEMOGLOBIN A1C (GLYCO) 08/28/2023 IRON, TOTAL 08/20/2022 IRON, TOTAL 08/28/2023 LIPID PANEL (CHOL/TRIG/HDL/LDL) 08/28/19 24 LIPID PANEL (CHOL/TRIG/HDL/LDL) 08/21/19 23 CBC WITH DIFF 08/20/2022 CBC WITH DIFF 08/28/2023 VITAMIN D, 25 LEVEL (TOTAL) 08/28/2023 XR Chest PA and Lateral (Routine CXR) * 07/29/2023 MAMM Mammograms CAD 08/28/2023 MAMM Mammograms CAD 08/20/2022 URINE CULTURE 08/28/2022 Insulin Level 08/28/2023 COVID-19, Flu A+B IH 06/05/2024 CULTURE URINE 08/20/2022 LIPID PROFILE 09/07/2023 LIPID PROFILE 04/27/2024 UA RANDOM W or MICROSCOPIC 08/20/2022 XR CHEST 2 V 06/10/2024 XR DEXA BONE DENSITY 08/28/2023 THYROID PANEL (T4/TSH/FREE T3) 3 THYROID PANEL (T4/TSH/FREE T3) 4 Insurance Providers Payer Name Payer Address Payer Phone Subscriber Number Group Number Insured Name Patient Relationship to Insured Coverage Start Date Coverage End Date [employer] [facility] [address] [place] [id number] Ameena Coello Self - patient is the insured Medical (General) History Medical History History ICD Code Acute bronchitis J20.9 Pain in left wrist M25.532 Pain in left elbow M25.522 Well adult Z00.00 Left knee pain M25.562 Hip pain, left M25.552 Hip pain, right M25.551 Gastritis K29.70 Tendinitis of right shoulder M75.81 Pneumonia due to other specified bacteri a J15.8 Osteopenia M85.80 Tension headache G44.209 Capillary hemangioma D18.00 Keratosis, seborrheic L82.1 Allergic rhinitis, seasonal J30.2 Hemorrhoids K64.9 Tachycardia R00.0 Anxiety and depression F41.8 osteopenia Surgical History Surgery Date(Month/Year) HYSTERECTOMY TOTAL
--- OUTSIDE RECORDS SUMMARY | 2024-11-23 15:10 | XMS_ITS | Encounter Summary ---
Author Organization [facility] Address [address] [facility] [place] [address] Care Team Providers Care Student Success Advisor Name Role Phone Salvatore Maxwell MD Primary Care Provider [phone] Encounter Details Date Type Department Care Team ([facility] Contact Info) Description 11/23/2024 Bamboo flowsheet [facility] [address] [place] [address] Ameena Lees PA [address] [facility] [address] [place], [place] [address] Social History Tobacco Use Types Packs/Day Years Used Date Smoking Tobacco: Never Assessed Comments No Sex and Gender Information Value Date Recorded Sex Assigned at Not on file Legal Sex Female 10:05 AM EDT Gender Identity Not on file Sexual Orientation Not on file documented as of this encounter Plan of Treatment Upcoming Encounters Date Type Department Care Team (Late Contact Info) Description 11/29/2025 9:00 AM EDT Procedure Visit [facility] [address] [facility] [address] Ameena Lees PA [address] [place], [place] [id number] documented as of this encounter Visit Diagnoses Not on filedocumented in this encounter Care Teams Student Success Advisor Relationship Specialty Start Date End Date Salvatore Maxwell MD [address] [place] [address] PCP - General Family Medicine 09/04/22 documented as of this encounter
--- OUTSIDE RECORDS SUMMARY | 2024-11-23 15:14 | XMS_ITS | CCD ---
Author Organization [facility] Care Team Providers Care Electronic Communications Technician Name Role Phone ROSA ELENA Dickerson, DR MENDOZA Primary Care Unavailable ROSA ELENA ., DR MENDOZA Consulting Unavailable ROSA ELENA ., DR MENDOZA Attending Unavailable ROSA ELENA ., DR MENDOZA Admitting Unavailable BELLING[place]AM, DR ANGEL Medeiros Consulting Unavailable ROSA ELENA ., DR MENDOZA Admitting Unavailable ROSA ELENA ., DR MENDOZA Primary Care Unavailable ROSA ELENA ., DR MENDOZA Consulting Unavailable ROSA ELENA ., DR MENDOZA Attending Unavailable Nathalia Garcia Unavailable AMEENA CHANEY Attending Unavailable Kelly Maxwell MD Primary Care Provider [phone] Kelly Maxwell MD Primary Care Provider [phone] Medications Current Medications Medication Drug Class(es) Dates Sig (Normalized) Sig (Original) amoxicillin 875 mg / clavulanate 125 mg oral tablet (1 source) Penicillin-class Antibacterial Start: 04-04-2024 take 1 tablet by mouth every twelve hours Amoxicillin-Pot Clavulanate 875-125 mg tablet Active 1 TAB PO Every 12 hours 20 April 04, 2024 12:00am ascorbic acid 100 mg oral tablet (3 sources) Vitamin C End: 11-19-2023 take 1 tablet by mouth in the morning Ascorbic Acid (vitamin C) 100 MG tablet Take 100 mg by mouth in the morning. 11/19/2023 Discontinued Calcium (1 source) Phosphate Binder, Calcium Calcium Active calcium carbonate 1500 mg oral tablet (1 source) Start: 04-04-2024 take 1 tablet by mouth twice daily Calcium Carbonate 600 mg calcium (1,500 mg) tablet Active 600 MG PO Twice daily April 04, 2024 12:00am cholecalciferol 0.025 mg oral capsule (1 source) Vitamin D Start: 04-04-2024 take 1 capsule by mouth once daily Cholecalciferol (Vitamin D3) 25 mcg (1,000 unit) capsule Active 25 MCG PO Daily April 04, 2024 12:00am ergocalciferol 1.25 mg oral capsule (7 sources) Provitamin D2 Compound take 1 capsule by mouth every week ergocalciferol (Vitamin D-2) 1.25 MG (03881 UT) capsule Take 1.25 mg by mouth 1 (one) time per week. Active escitalopram 20 mg oral tablet (9 sources) Serotonin Reuptake Inhibitor Start: 06-28-2022 take 1 tablet by mouth in the morning escitalopram (Lexapro) 20 MG tablet Take 20 mg by mouth in the morning. 06/28/2022 Active Lexapro Active ibandronic acid 150 mg oral tablet (9 sources) Bisphosphonate Start: 04-04-2022 take 1 tablet by mouth every month ibandronate (Boniva) 150 MG tablet TAKE 1 TABLET BY MOUTH ONCE A MONTH 04/04/2022 Active Boniva Active pantoprazole 40 mg delayed release oral tablet (9 sources) Proton Pump Inhibitor Start: 06-28-2022 take 1 tablet by mouth in the morning pantoprazole (ProtoNix) 40 MG EC tablet Take 40 mg by mouth in the morning. 06/28/2022 Active phenazopyridine hydrochloride 100 mg oral tablet (2 sources) Start: 11-23-2024 End: 11-26-2024 take 1 tablet by mouth three times daily as needed for muscle spasms phenazopyridine (Pyridium) 100 MG tablet Indications: UTI symptoms Take 1 tablet (100 mg) by mouth 3 (three) times a day as needed for bladder spasms for up to 3 days 9 tablet 11/23/2024 11/26/2024 Active Womens One Daily (1 source) Womens One Daily Active Problems Active Problems Problem Classification Problem Date Documented Date Episodic/Chronic Genitourinary symptoms and ill-defined conditions (2 sources) Urinary symptoms ; Translations: [Unspecified symptoms and signs involving the genitourinary system] 11-23-2024 Episodic Osteoporosis (3 sources) Osteoporosis; Translations: [Other osteoporosis without current pathological fracture] Onset: 11-26-2023 11-26-2023 Chronic Other ear and sense organ disorders (1 source) Impacted cerumen, right ear Episodic Other screening for suspected conditions (not mental disorders or infectious disease) (7 sources) Encounter for screening mammogram for malignant neoplasm of breast; Translations: [Patient encounter status] Onset: 08-29-2022 11-19-2023 Episodic Otitis media and related conditions (1 [...] Other Problems Problem Classification Problem Date Documented Date Episodic/Chronic Acute bronchitis (1 source) Acute bronchitis, unspecified; Translations: [ACUTE BRONCHITIS UNSPECIFIED] Onset: 03-03-2022 Episodic Residual codes; unclassified (2 sources) Postmenopausal state; Translations: [Asymptomatic menopausal state] 11-19-2023 Episodic Unclassified (1 source) CONTACT W/AND (SUSP) EXPOS COVID-19; Translations: [CONTACT W/AND (SUSP) EXPOS COVID-19] Onset: 03-01-2022 Results Test Name Value Interpretation Reference Range Facility Urinalysis macro (dipstick) panel (U)on 11-23-2024 Bilirubin, UA Negative Negative - 4(70) +++ mg/dL [facility] Blood, UA Negative Negative - 50 Yovany/mcL [facility] Clarity, UA Clear [facility] Color, UA Yellow [facility] Glucose, UA Negative Negative - 1999(110) ++++ mg/dL [facility] Interpretation and review of laboratory results Normal [facility] Ketones, UA Negative Negative - 160(16) ++++ mg/dL [facility] Leukocytes, UA Negative Negative - 500+++ John/mcL [facility] Nitrite, UA Negative Negative - Positive [facility] pH, UA 6 5 - 9 [facility] Protein, UA Negative Negative - 2000(20) ++++ mg/dL [facility] Spec Grav, UA 1.015 1 - 1.03 [facility] Urobilinogen, UA 1.0 0.2 - 12 mg/dL [facility] No Panel InformationOrdered By: Nisha Gil on 04-04-2024 Quick Strep (POC) [facility] IGP,APTIMA HPV,AGE GDLNon AGE GDLN ACOG TESTING Note . [facility] Comment on above: TESTS RESULT FLAG U NITS REF RANGE LAB Clinician Provided Cytology Information Source.............Vagina No. of containers..01 ThinPrep Vial Age Algo ACOG Ana... FLAG LEGEND: L-Low Normal,H-High Normal,LL-Alert Low,HH-Alert High <-Panic Low,>-Panic High,A-Abnormal,AA-Critical Abnormal Performed at: 01 = [facility] [place] [phone] Frances Zuniga MD, HPV APTIMA Negative Negative [facility] Comment on above: This nucleic acid am plification test detects fourteen high- risk HPV types (16,18,31,33,35,39,45,51,52,56,58,59,66,68) without differentiation. Performed at: =[facility] [place], [place] [id number] Senior Climate Advisor: Frances Zuniga MD, Phone: [phone] Performed at: [facility] [address] [place] [id number] Senior Climate Advisor: Andrei Noonan MD, Phone: [phone] IGP, APTIMA HPV, RFX 16/18,45 Note . [facility] Comment on above: TESTS RESULT FLAG UN ITS REF RANGE LAB DIAGNOSIS: 02 NEGATIVE FOR INTRAEPITHELIAL LESION OR MALIGNANCY. CELLULAR CHANGES ASSOCIATED WITH ATROPHY ARE PRESENT. Specimen adequacy: 02 Satisfactory for evaluation. Performed by: 02 Asha Renee, Door Repairer Bus (ASCP) . 02 Note: Note 03 The Pap smear is a screening test designed to aid in the detection of premalignant and malignant conditions of the uterine cervix. It is not a diagnostic procedure and should not be used as the sole means of detecting cervical cancer. Both false-positive and false-negative reports do occur. Test Methodology: Note 03 This liquid based ThinPrep(R) pap test was screened with the use of an image guided system. HPV Genotype Reflex Note 02 Criteria not met, HPV Genotype not performed. FLAG LEGEND: L-Low Normal,H-High Normal,LL-Alert Low,HH-Alert High <-Panic Low,>-Panic High,A-Abnormal,AA-Critical Abnormal Performed at: 02 [facility] [id number] [place] [phone] Andrei Noonan MD, 03 WB [facility] [address] [phone] Frances Zuniga MD, SPATULA-ALONE [facility] Cytology Cervical or vaginal smear or scraping studyOrdered By: Maci Perry on 11-19-2023 [facility] CBC AUTO DIFFon 08-28-2022 BASO # 0.1 103/ul Normal 0.0-0.1 [facility] Comment on above: Performed By: #### I NICOLE #### [facility] [address] [address] [address] Donte Palacio Basophils/100 WBC (Bld) 0.7 % Normal 0.2-2.0 [facility] Comment on above: Performed By: #### I NICOLE #### [facility] [address] [address] [address] Donte Palacio EO # 0.1 103/ul Normal 0.0-0.7 [facility] Comment on above: Performed By: #### I INCOLE #### [facility] [address] [address] [address] Donte Palacio Eosinophils/100 WBC (Bld) 1.6 % Normal 0.9-7.0 [facility] Comment on above: Performed By: #### I NICOLE #### [facility] [address] [address] [address] Donte Palacio Erythrocyte distribution width (RBC) [Ratio] 13.1 % Normal 11.0-15.0 [facility] Comment on above: Performed By: #### I NICOLE #### [facility] [address] [address] [address] Donte Palacio Hematocrit (Bld) [Volume fraction] 40.4 % Normal 36.0-48.0 [facility] Comment on above: Performed By: #### I NICOLE #### [facility] [address] [address] [address] Donte Palacio Hemoglobin (Bld) [Mass/Vol] 13.2 g/dL Normal 12.0-16.0 [facility] Comment on above: Performed By: #### I NICOLE #### [facility] [address] [address] [address] Donte Palacio IG # 0.02 10e3/ul Normal 0.00-0.03 [facility] Comment on above: Performed By: #### I NICOLE #### [facility] [address] [place] [address] Dr. Donte Palacio IG % 0.3 % Normal 0.0-0.5 [facility] Comment on above: Performed By: #### I NICOLE #### [facility] [address] [place] [address] Dr. Donte Palacio LYMPH # 2.0 103/ul Normal 1.2-3.8 [facility] Comment on above: Performed By: #### I NICOLE #### [facility] [address] [place] [address] Dr. Donte Palacio Lymphocytes/100 WBC (Bld) 30.4 % Normal 20.5-60.0 [facility] Comment on above: Performed By: #### I NICOLE #### [facility] [address] [place] [address] Dr. Donte Palacio MANUAL DIFF REQ NO Normal [facility] Comment on above: Performed By: #### I NICOLE #### [facility] [address] [place] [address] Dr. Donte Palacio MCH (RBC) [Entitic mass] 29.2 pg Normal 26.7-34.0 [facility] Comment on above: Performed By: #### I NICOLE #### [facility] [address] [place] [address] Dr. Donte Palacio MCHC (RBC) [Mass/Vol] 32.7 g/dL Normal 29.9-35.2 [facility] Comment on above: Performed By: #### I NICOLE #### [facility] [address] [place] [address] Dr. Donte Palacio MCV (RBC) [Entitic vol] 89.4 fL Normal 81.0-99.0 [facility] Comment on above: Performed By: #### I NICOLE #### [facility] [address] [place] [address] Dr. Donte Palacio MONO # 0.5 103/ul Normal 0.3-0.8 [facility] Comment on above: Performed By: #### I NICOLE #### [facility] [address] [place] [address] Dr. Donte Palacio Monocytes/100 WBC (Bld) 7.2 % Normal 1.7-12.0 [facility] Comment on above: Performed By: #### I NICOLE #### [facility] [address] [place] [address] Dr. Donte Palacio NEUT # 4.0 103/ul Normal 1.4-6.5 [facility] Comment on above: Performed By: #### I NICOLE #### [facility] [address] [place] [address] Dr. Donte Palacio Neutrophils/100 WBC (Bld) 59.8 % Normal 43.0-75.0 [facility] Comment on above: Performed By: #### I NICOLE #### [facility] [address] [place] [address] Dr. Donte Palacio Platelet mean volume (Bld) [Entitic vol] 10.2 fL Normal 9.5-13.5 [facility] Comment on above: Performed By: #### I NICOLE #### [facility] [address] [place] [address] Dr. Donte Palacio PLT 246 103/ul Normal 150-450 [facility] Comment on above: Performed By: #### I NICOLE #### [facility] [address] [place] [address] Dr. Donte Palacio RBC 4.52 106/ul Normal 4.20-5.40 [facility] Comment on above: Performed By: #### I NICOLE #### [facility] [address] [place] [address] Dr. Donte Palacio WBC 6.7 103/ul Normal 4.0-11.0 [facility] Comment on above: Performed By: #### I NICOLE #### [facility] [address] [place] [address] Dr. Donte Palacio CULTURE URINEon 08-28-2022 CULTURE URINE Culture Observations: NO GROWTH. Normal [facility] Comment on above: Performed By: #### U RCX #### [facility] [address] [place] [address] Dr. Donte Palacio FREE T3on 08-28-2022 FREE T3 2.80 pg/mlL Normal 2.18-3.98 [facility] Comment on above: Performed By: #### C MP, LIPID, T4, FT3, TSH #### [facility] [address] [address] [address] Donte Palacio GLYCOHEMOGLOBIN A1Con 2022 ADA RECOMMENDATION SEE BELOW Normal [facility] Comment on above: Result Comment: ADA RECOMMENDED LIMIT 4.0 - 6.0 ADA THERAPEUTIC TARGET < 7.0 ACTION SUGGESTED > 7.0 Performed By: #### A 1C #### [facility] [address] [address] [address] Donte Palacio Glucose [Mass/Vol] 100 mg/dL Normal [facility] Comment on above: Performed By: #### A 1C #### [facility] [address] [address] [address] Donte Palacio HbA1c (Bld) [Mass fraction] 5.1 % Normal 4.5-6.2 [facility] Comment on above: Performed By: #### A 1C #### [facility] [address] [address] [address] Donte Palacio IRONon 08-28-2022 Iron [Mass/Vol] 74.0 ug/dL Normal 50.0-170.0 [facility] Comment on above: Performed By: #### I NICOLE #### [facility] [address] [place] [address] Dr. Donte Palacio LIPID PROFILEon 08-28-2022 CHOL-HDL RATIO NORM SEE BELOW Normal [facility] Comment on above: Result Comment: 3.3 - 4.4 LOW RISK 4.4 - 7.1 AVERAGE RISK 7.1 - 11.0 MODERATE RISK >11.0 HIGH RISK Performed By: #### C MP, LIPID, T4, FT3, TSH #### [facility] [address] [address] [address] Donte Palacio Cholesterol [Mass/Vol] 212 mg/dL Critically high <=200 [facility] Comment on above: Performed By: #### C MP, LIPID, T4, FT3, TSH #### [facility] [address] [address] [address] Donte Palacio Cholesterol in HDL [Mass/Vol] 71 mg/dL Critically high 40-60 [facility] Comment on above: Performed By: #### C MP, LIPID, T4, FT3, TSH #### [facility] [address] [address] [address] Donte Palacio Cholesterol in LDL [Mass/Vol] 117.2 mg/dL Normal [facility] Comment on above: Performed By: #### C MP, LIPID, T4, FT3, TSH #### [facility] [address] [address] [address] Donte Palacio Cholesterol.total/Chol esterol in HDL [Mass ratio] 3.0 {ratio} Normal [facility] Comment on above: Performed By: #### C MP, LIPID, T4, FT3, TSH #### [facility] [address] [address] [address] Donte Palacio HDL NORMAL > or = 60 mg/dl - LOW CARDIOVASCULAR RISK <40 mg/dl - HIGH CARDIOVASCULAR RISK Normal [facility] Comment on above: Performed By: #### C MP, LIPID, T4, FT3, TSH #### [facility] [address] [address] [address] Donte Palacio LDL CALC NORMAL SEE BELOW Normal [facility] Comment on above: Result Comment: <100 mg/dl OPTIMAL 100 - 129 mg/dl NEAR OR ABOVE OPTIMAL 130 - 159 mg/dl BORDERLINE HIGH 160 - 189 mg/dl HIGH >190 mg/dl VERY HIGH Performed By: #### C MP, LIPID, T4, FT3, TSH #### [facility] [address] [address] [address] Donte Palacio Triglyceride [Mass/Vol] 119 mg/dL Normal <=150 [facility] Comment on above: Performed By: #### C MP, LIPID, T4, FT3, TSH #### [facility] [address] [address] [address] Donte Palacio VLDL CALC 23.8 mg/dL Normal [facility] Comment on above: Performed By: #### C MP, LIPID, T4, FT3, TSH #### [facility] [address] [address] [address] Donte Palacio MG MAMM SCREEN 3D JAYLA CADon 08-28-2022 MG MAMM SCREEN 3D JAYLA CAD Patient: AMEENA COELLO Exam Date: 08/28/2022 : 1970 Gender:F Ordering : DR KELLY MAXWELL . Admission #: [id number] Family : Order #: [id number] CLICK HERE TO VIEW EXAM RADIOLOGY REPORT [...] unknown cancer at age 79. LOCATION: [facility] BREAST COMPOSITION: Scattered areas fibroglandular density. FINDINGS: [...] Bradford MD on 08/28/2022 at 11:04 Normal [facility] PROF 14(COMP METB)on 023 Albumin [Mass/Vol] 4.1 g/dL Normal 3.4-5.0 [facility] Comment on above: Performed By: #### C MP, LIPID, T4, FT3, TSH #### [facility] [address] [address] [address] Donte Palacio Albumin/Globulin [Mass ratio] 1.1 {ratio} Normal [facility] Comment on above: Performed By: #### C MP, LIPID, T4, FT3, TSH #### [facility] [address] [place] [address] Dr. Donte Palacio ALP [Catalytic activity/Vol] 77 U/L Normal 46-116 [facility] Comment on above: Performed By: #### C MP, LIPID, T4, FT3, TSH #### [facility] [address] [place] [address] Dr. Donte Palacio ALT [Catalytic activity/Vol] 32 U/L Normal 14-59 [facility] Comment on above: Performed By: #### C MP, LIPID, T4, FT3, TSH #### [facility] [address] [place] [address] Dr. Donte Palacio Anion gap [Moles/Vol] 11.5 mmol/L Normal [facility] Comment on above: Performed By: #### C MP, LIPID, T4, FT3, TSH #### [facility] [address] [place] [address] Dr. Donte Palacio AST [Catalytic activity/Vol] 21 U/L Normal 15-37 [facility] Comment on above: Performed By: #### C MP, LIPID, T4, FT3, TSH #### [facility] [address] [place] [address] Dr. Donte Palacio Bilirubin [Mass/Vol] 0.3 mg/dL Normal 0.2-1.0 [facility] Comment on above: Performed By: #### C MP, LIPID, T4, FT3, TSH #### [facility] [address] [place] [address] Dr. Donte Palacio Calcium [Mass/Vol] 9.1 mg/dL Normal 8.5-10.1 [facility] Comment on above: Performed By: #### C MP, LIPID, T4, FT3, TSH #### [facility] [address] [place] [address] Dr. Donte Palacio Chloride [Moles/Vol] 102 mmol/L Normal 98-107 [facility] Comment on above: Performed By: #### C MP, LIPID, T4, FT3, TSH #### [facility] [address] [place] [address] Dr. Donte Palacio CO2 [Moles/Vol] 31.7 mmol/L Normal 21.0-32.0 [facility] Comment on above: Performed By: #### C MP, LIPID, T4, FT3, TSH #### [facility] [address] [address] [address] Donte Palacio Creatinine [Mass/Vol] 0.75 mg/dL Normal 0.55-1.02 [facility] Comment on above: Performed By: #### C MP, LIPID, T4, FT3, TSH #### [facility] [address] [address] [address] Donte Palacio EGFR-AF MOSOTHO >60 Normal >=60 [facility] Comment on above: Performed By: #### C MP, LIPID, T4, FT3, TSH #### [facility] [address] [place] [address] Dr. Donte Palacio EGFR-NON AF MOSOTHO >60 Normal >=60 [facility] Comment on above: Performed By: #### C MP, LIPID, T4, FT3, TSH #### [facility] [address] [place] [address] Dr. Donte Palacio Globulin (S) [Mass/Vol] 3.8 g/dL Normal [facility] Comment on above: Performed By: #### C MP, LIPID, T4, FT3, TSH #### [facility] [address] [address] [address] Donte Palacio Glucose [Mass/Vol] 87 mg/dL Normal 74-106 [facility] Comment on above: Performed By: #### C MP, LIPID, T4, FT3, TSH #### [facility] [address] [address] [address] Donte Palacio Potassium [Moles/Vol] 4.2 mmol/L Normal 3.5-5.1 [facility] Comment on above: Performed By: #### C MP, LIPID, T4, FT3, TSH #### [facility] [address] [place] [address] Dr. Donte Palacio Protein [Mass/Vol] 7.9 g/dL Normal 6.4-8.2 [facility] Comment on above: Performed By: #### C MP, LIPID, T4, FT3, TSH #### [facility] [address] [place] [address] Dr. Donte Palacio Sodium [Moles/Vol] 141 mmol/L Normal 136-145 [facility] Comment on above: Performed By: #### C MP, LIPID, T4, FT3, TSH #### [facility] [address] [place] [address] Dr. Donte Palacio Urea nitrogen [Mass/Vol] 12.0 mg/dL Normal 7.0-18.0 [facility] Comment on above: Performed By: #### C MP, LIPID, T4, FT3, TSH #### [facility] [address] [place] [address] Dr. Donte Palacio Urea nitrogen/Creatinine [Mass ratio] 16.0 mg/mg Normal [facility] Comment on above: Performed By: #### C MP, LIPID, T4, FT3, TSH #### [facility] [address] [place] [address] Dr. Donte Palacio T4on 08-28-2022 T4 [Mass/Vol] 8.90 ug/dL Normal 4.80-13.90 [facility] Comment on above: Performed By: #### C MP, LIPID, T4, FT3, TSH #### [facility] [address] [place] [address] Dr. Donte Palacio TSHon 08-28-2022 TSH 1.998 uIU/mL Normal 0.358-3.740 [facility] Comment on above: Performed By: #### C MP, LIPID, T4, FT3, TSH #### [facility] [address] [place] [address] Dr. Donte Palacio UA RANDOM W/MICROSCOPICon BACTERIA TRACE Abnormal NONE SEEN [facility] Comment on above: Performed By: #### U AMIC #### [facility] [address] [place] [address] Dr. Donte Palacio Bilirubin Ql (U) Negative Normal NEGATIVE [facility] Comment on above: Performed By: #### U AMIC #### [facility] [address] [address] [address] Donte Palacio CAST NONE SEEN Normal NONE SEEN [facility] Comment on above: Performed By: #### U AMIC #### [facility] [address] [address] [address] Donte Palacio Clarity (U) CLEAR Normal CLEAR [facility] Comment on above: Performed By: #### U AMIC #### [facility] [address] [address] [address] Donte Palacio Color (U) LT. YELLOW Normal YELLOW [facility] Comment on above: Performed By: #### U AMIC #### [facility] [address] [place] [address] Dr. Donte Palacio Crystals LM Nom (Urine sed) NONE SEEN Normal NONE SEEN [facility] Comment on above: Performed By: #### U AMIC #### [facility] [address] [place] [address] Dr. Donte Palacio Epithelial cells LM Ql (Urine sed) RARE Normal NONE SEEN /RARE [facility] Comment on above: Performed By: #### U AMIC #### [facility] [address] [place] [address] Dr. Donte Palacio Glucose Ql (U) Negative Normal NEGATIVE [facility] Comment on above: Performed By: #### U AMIC #### [facility] [address] [place] [address] Dr. Donte Palacio Hemoglobin Ql (U) TRACE-INTACT Abnormal NEGATIVE [facility] Comment on above: Performed By: #### U AMIC #### [facility] [address] [address] [address] Donte Palacio Ketones Ql (U) Negative Normal NEGATIVE [facility] Comment on above: Performed By: #### U AMIC #### [facility] [address] [place] [address] Dr. Donte Palacio LEUKOCYTES Negative Normal NEGATIVE [facility] Comment on above: Performed By: #### U AMIC #### [facility] [address] [address] [address] Donte Palacio MUCOUS NONE SEEN Normal NONE SEEN [facility] Comment on above: Performed By: #### U AMIC #### [facility] [address] [place] [address] Dr. Donte Palacio Nitrite Ql (U) Negative Normal NEGATIVE [facility] Comment on above: Performed By: #### U AMIC #### [facility] [address] [place] [address] Dr. Donte Palacio pH (U) 6.0 [pH] Normal 5-9 [facility] Comment on above: Performed By: #### U AMIC #### [facility] [address] [place] [address] Dr. Donte Palacio RBC 0-2 Normal 0-2 [facility] Comment on above: Performed By: #### U AMIC #### [facility] [address] [place] [address] Dr. Donte Palacio SPEC GRAVITY <=1.005 Abnormal 1.005-<=1.025 [facility] Comment on above: Performed By: #### U AMIC #### [facility] [address] [place] [address] Dr. Donte Palacio UA PROTEIN Negative Normal NEGATIVE/ TRACE [facility] Comment on above: Performed By: #### U AMIC #### [facility] [address] [place] [address] Dr. Donte Palacio Urobilinogen Qn (U) 0.2 {Paige'U}/dL Normal 0.2 - 1. 0 [facility] Comment on above: Performed By: #### U AMIC #### [facility] [address] [place] [address] Dr. Donte Palacio WBC NONE SEEN Normal NONE SEEN [facility] Comment on above: Performed By: #### U AMIC #### [facility] [address] [place] [address] Dr. Donte Palacio Covid-19 PCR ([facility])on SARS-CoV-2 (COVID-19) RNA MARQUES+probe Ql (Unsp spec) Not detected Normal NOT DETECTED [facility] Comment on above: Result Comment: This test is not yet approved or cleared by the [place] FDA. When there are no FDA-approved or cleared tests available, and other criteria are met, FDA can make tests available under an emergency access mechanism called an Emergency Use Authorization (EUA). The EUA for this test is supported by the [employer] of Health and Human Service's (HHS's) declaration [...] SARS-CoV-2. Performed By: #### I NICOLE #### [facility] [address] [place] [address] Dr. Donte Palacio INFLUENZA A AND B AGon 03[facility] Normal [facility] Comment on above: Result Comment: Nega tive for Flu A protein angiten. Infection due to Flu A cannot be ruled out. Flu A angiten in the sample may be below the detection limit of the test. Performed By: #### I NICOLE #### [facility] [address] [place] [address] Dr. Donte Palacio INFLUBNEG SEE BELOW Normal [facility] Comment on above: Result Comment: Nega tive for Flu B protein antigen. Infection due to Flu B cannot be ruled out. Flu B antigen in the sample may be below the detection limit of the test. Performed By: #### I NICOLE #### [facility] [address] [place] [address] Dr. Donte Palacio INFLUENZA A AG Negative Normal NEGATIVE SEE COMMENT [facility] Comment on above: Performed By: #### I NICOLE #### [facility] [address] [place] [address] Dr. Donte Palacio INFLUENZA B AG Negative Normal NEGATIVE SEE COMMENT [facility] Comment on above: Performed By: #### I NICOLE #### [facility] [address] [place], [place] [address] Dr. Donte Palacio INTERNAL CONTROLS Within Normal Limits Normal Wi thin Normal Limits [facility] Comment on above: Performed By: #### I NICOLE #### [facility] [address] [place], [place] [address] Dr. Donte Palacio Vital Signs Date Time Vital Sign Value Performing Clinician Facility 11-23-2024 09:10-0400 Body height 165.1 cm Ameena GRIMM Work Phone: [facility] 11-23-2024 09:10-0400 Body mass index (BMI) [Ratio] 29.95 kg/m2 Ameena GRIMM Work Phone: [facility] 11-23-2024 09:10-0400 Body weight 81.65 kg Ameena GRIMM Work Phone: [facility] 11-23-2024 09:10-0400 Diastolic blood pressure 78 mm[Hg] Ameena Chaney PA Work Phone: [facility] 11-23-2024 09:10-0400 Systolic blood pressure 128 mm[Hg] Ameena Chaney PA Work Phone: [facility] 04-04-2024 09:13-0500 Body height 165.1 cm [facility] 04-04-2024 09:13-0500 Body mass index (BMI) [Ratio] 29.5 kg/m2 [facility] 04-04-2024 09:13-0500 Body temperature 98.6 [degF] [facility] 04-04-2024 09:13-0500 Body weight 80.45 kg [facility] 04-04-2024 09:13-0500 Diastolic blood pressure 72 mm[Hg] [facility] 04-04-2024 09:13-0500 Heart rate 99 /min [facility] 04-04-2024 09:13-0500 Respiratory rate 16 /min [facility] 04-04-2024 09:13-0500 SaO2% (BldA) [Mass fraction] 94 % [facility] 04-04-2024 09:13-0500 Systolic blood pressure 119 mm[Hg] [facility] 11-19-2023 08:47-0400 Body height 165.1 cm Ameena Chaney PA Work Phone: [facility] 11-19-2023 08:47-0400 Body mass index (BMI) [Ratio] 29.02 kg/m2 Ameena Yoana PA Work Phone: [facility] 11-19-2023 08:47-0400 Body weight 79.11 kg Ameena Yoana PA Work Phone: [facility] 11-19-2023 08:47-0400 Diastolic blood pressure 70 mm[Hg] Ameena [place] PA Work Phone: [facility] 11-19-2023 08:47-0400 Systolic blood pressure 130 mm[Hg] Ameena Chaney PA Work Phone: [facility] 03-21-2023 16:55-0500 Body height 165.1 cm Nathalia Garcia Other [facility] Other 03-21-2023 16:55-0500 Body mass index (BMI) [Ratio] 28.67 kg/m2 Nathalia Garcia Other [facility] Other 03-21-2023 16:55-0500 Body temperature 98.1 [degF] Nathalia Garcia Other [facility] Other 03-21-2023 16:55-0500 Body weight 78.16 kg Nathalia Garcia Other [facility] Other 03-21-2023 16:55-0500 Respiratory rate 18 /min Nathalia Garcia Other [facility] Other 03-21-2023 16:55-0500 SaO2% (BldA) [Mass fraction] 98 % Nathalia Garcia Other [facility] Other Encounters Encounter Date Encounter Type Care Provider Facility Start: 11-23-2024 End: 11-23-2024 Bamboo flowsheet Ameena GRIMM Work Phone: [facility] Start: 11-23-2024 End: 11-23-2024 Bamboo flowsheet Ameena GRIMM Work Phone: [facility] Start: 11-23-2024 End: 11-23-2024 Patient encounter procedure Ameena GRIMM Work Phone: [facility] Start: 11-23-2024 End: 11-23-2024 Periodic preventive med est patient 40-64yrs Ameena GRIMM Work Phone: [facility] Comment on above: Well woman exam with routine gynecological exam; Breast cancer screening by mammogram; Encounter for osteoporosis screening in asymptomatic postmenopausal patient; UTI symptoms Start: 04-04-2024 End: 04-04-2024 ambulatory [facility] Work Phone: Start: 04-04-2024 End: 04-04-2024 Patient encounter procedure [facility] Work Phone: Start: 11-19-2023 End: 11-19-2023 Bamboo flowsheet Ameena GRIMM Work Phone: [facility] Start: 11-19-2023 End: 11-25-2023 Bamboo flowsheet Ameena GRIMM Work Phone: [facility] Start: 11-19-2023 End: 11-25-2023 Clinisync Result Encounter Ameena GRIMM Work Phone: [facility] Unsolicited Start: 11-19-2023 End: 11-19-2023 Patient encounter procedure Ameena GRIMM Work Phone: [facility] Work Phone: Start: 11-19-2023 End: 11-19-2023 Periodic preventive med est patient 40-64yrs Ameena GRIMM Work Phone: [facility] Comment on above: Well woman exam with routine gynecological exam; Breast cancer screening by mammogram; Postmenopausal state Start: 11-19-2023 End: 11-19-2023 ambulatory AMEENA CHANEY Not Available Start: 03-21-2023 End: 03-21-2023 ambulatory Nathalia Garcia Other [facility] Other Start: 03-21-2023 Office outpatient ne w 30 minutes Nathalia Garcia [facility] Start: 08-29-2022 Encounter for genera l adult medical examination without abnormal findings DR KELLY MAXWELL . [facility] Start: 08-28-2022 End: 08-29-[address] KELLY MAXWELL . Facility: Start: 08-28-2022 End: 08-29-2022 Encounter for general adult medical examination without abnormal findings DR KELLY MAXWELL . Facility: Start: 03-01-2022 End: 03-01-[address] KELLY MAXWELL . Facility: Procedures Date Procedure Procedure Detail Performing Clinician Start: 11-23-2024 Urnls dip stick/tabl et rgnt non-auto w/o micrscp Ameena GRIMM Work Phone: Start: 04-04-2024 Quick Strep (POC) Start: 11-19-2023 IGP,APTIMA HPV,AGE GDLN Ameena GRIMM Work Phone: Start: 11-19-2023 Microscopic observat ion [Identifier] in Cervix by Cyto stain Ameena GRIMM Work Phone: Start: 11-19-2023 Cytp cerv/vag auto t hin layer prep mnl screen Ameena GRIMM Work Phone: Plan of Treatment Date Care Activity Detail Author Start: 11-16-2027 Screening for malignant neoplasm of cervix [facility] Start: 11-18-2026 Screening for malignant neoplasm of cervix Pap Smear [facility] Start: 11-29-2025 End: 11-29-2025 Patient encounter procedure 11/29/2025 9:00 AM EDT Procedure Visit [facility] [address] [id number] Ameena Chaney PA [address] [place], [place] [id number] [facility] Start: 11-30-2024 Influenza vaccination Influenza Vacc ine (#1) [facility] Start: 11-23-2024 End: 11-23-2025 DXA Skeletal system Views for bone density DEXA bone density Imaging Routine Encounter for osteoporosis screening in asymptomatic postmenopausal patient Expected: 11/23/2024 (Approximate), Expires: 11/23/2025 [facility] Comment on above: Expected: 11/23/2024 (Approximate), Expires: 11/23/2025 Start: 11-23-2024 End: 01-23-2026 MG Breast - bilateral Screening Bilateral screening mammogram Imaging Routine Breast cancer screening by mammogram Expected: 11/23/2024 (Approximate), Expires: 01/23/2026 [facility] Work Phone: Comment on above: Expected: 11/23/2024 (Approximate), Expires: 01/23/2026 Start: 11-23-2024 End: 11-23-2024 Patient encounter procedure [facility] Comment on above: Arrived Start: 12-01-2023 Influenza vaccination Influenza Vacc ine (#1) [facility] Start: 11-19-2023 End: 11-19-2023 Patient encounter procedure 11/19/2023 8:30 AM EDT Office Visit [facility] [address] [phone] Ameena Chaney PA [address] [place], [place] [id number] Arrived [facility] Comment on above: Arrived Start: 2009 Screening for malignant neoplasm of breast Mammogram [facility] Start: 1990 Screening for malignant neoplasm of cervix Pap Smear [facility] Start: 1969 Screening for malignant neoplasm of colon [facility] THIN PREP TIS PAP AN D HR HPV DNA THIN PREP TIS PAP AND HR HPV DNA Pathology and Cytology Routine Well woman exam with routine gynecological exam Ordered: 11/19/2023 [facility] Work Phone: Comment on above: Ordered: 11/19/2023 THIN PREP TIS PAP AN D HR HPV DNA THIN PREP TIS PAP AND HR HPV DNA Pathology and Cytology Routine Well woman exam with routine gynecological exam Ordered: 11/23/2024 [facility] Comment on above: Ordered: 11/23/2024 Immunizations Immunization Date Immunization Notes Care Provider Fa cility 12-14-2023 influenza virus vacc ine, unspecified formulation Ameena GRIMM Work Phone: [facility] 01-13-2023 influenza virus vacc ine, unspecified formulation Ameena GRIMM Work Phone: [facility] Payers Date Payer Category Payer [facility] BCBS [id number] 2023 Managed Care HMO (unspecified) [employer] AET[employer] [id number] 2023-Present [address] [place] [address] HMO [id number] 2023 Private Health Insurance [id number] 1970 Unknown [id number] 1969 Unknown [id number] 1969 Unknown [id number] 1959 Unknown [id number] Private Health Insurance [id number] Unknown [place] [id number] Social History Date Type Detail Facility Unknown if ever smoked [facility] Other Sex Assigned At [facility] Other Tobacco smoking status [facility] Tobacco smoking consumption unknown [facility] Start: 1970 Sex assigned at Not on file [facility] Start: 04-04-2024 Tobacco smoking status [facility] Never smoked tobacco (finding) [facility] Start: 04-04-2024 Sex Female (finding) [facility] Start: 1970 Sex Assigned At Female F [facility] History of Present illness Narrative 11-23-2024 ALFA Ibarra - 11/23/2024 9:00 AM EDT Note Date & Type Note Facility 11-23-2024 History of Presen t illness Narrative Reason for Appointment: Patient ID: Ameena Coello [...] nursing note reviewed. Exam conducted with a director agricultural services present. Vitals: Estimated body mass index is 29.95 kg/m as calculated from the following: Height as [...] of: ALFA Ibarra documented in this encounter [facility] History of Present illness Narrative 11-19-2023 ALFA Ibarra - 11/19/2023 8:30 AM EDT Note Date & Type Note Facility 11-19-2023 History of Presen t illness Narrative Reason for Appointment: Patient ID: Ameena Coello is a 53 y.o. female who presents for [facility] Visit Patient presents today for Annual Exam. MEDICATIONS Current Outpatient Medications Medication Instructions ergocalciferol (VITAMIN D-2) 1.25 mg, Oral, Weekly escitalopram (LEXAPRO) 20 mg, Oral, Daily ibandronate (Boniva) 150 MG tablet TAKE 1 TABLET BY MOUTH ONCE A MONTH pantoprazole (PROTONIX) 40 mg, Oral, Daily ALLERGIES No Known Allergies PROBLEMS Active Ambulatory Problems Diagnosis Date Noted No Active Ambulatory Problems Resolved Ambulatory Problems Diagnosis Date Noted No [...] Respiratory: Negative. Cardiovascular: Negative. Gastrointestinal: Negative. Genitourinary: Negative. Musculoskeletal: Negative. Skin: Negative. Neurological: Negative. All other systems reviewed and are negative. Hematological: Negative. Endocrine: Negative. Allergic/Immunologic: Negative. OBJECTIVE Objective: Physical Exam Constitutional: Appearance: Normal appearance. She is well-developed. Genitourinary: Vulva normal. Right Adnexa: not tender and no mass present. Left Adnexa: not tender and no mass present. Cervix is absent. Uterus is absent. Breasts: [...] nursing note reviewed. Exam conducted with a director agricultural services present. Vitals: Estimated body mass index is 29.02 kg/m as calculated from the following: Height as of this encounter: 5' 5 . Weight as of this encounter: 174 lb 6.4 oz. BP: 130/70 No LMP recorded. Patient has had a hysterectomy. ASSESSMENT & PLAN ICD-10-CM 1. Well woman exam with routine gynecological exam Z01.419 THIN PREP TIS PAP AND HR HPV DNA 2. Breast cancer screening by mammogram Z12.31 CANCELED: Bilateral screening mammogram CANCELED: Bilateral screening mammogram 3. Postmenopausal state Z78.0 CANCELED: DEXA bone density Annual Exam: Patient presents today for an annual exam. Patient states she is doing well and has no complaints. Pap was obtained without difficulty. Patient did have Mammogram and Dexa scan these were reviewed with patient. Patient was wondering if she can change the Boniva to Prolia. Patient was on Fosamax previously and would eat prior or after taking medication. Will work on PA for the Prolia. Follow Up: Patient is to return in one year for annual unless needed otherwise. Documented by Melissa Zuniga LPN on behalf of: ALFA Ibarra documented in this encounter [facility] Evaluation note 03-21-2023 Note Date & Type [...] understanding and is agreeable to treatment plan [facility] Other Evaluation note Note Date & Type Note Facility Evaluation note Diagnosis Well woman exam with routine gynecological exam Routine gynecological examination Breast cancer screening by mammogram Postmenopausal state Asymptomatic postmenopausal status (age-related) (natural) documented in this encounter [facility] Evaluation note Note Date & Type Note Facility Evaluation note No assessment information availa [facility] Work Phone: Evaluation note Note Date & Type Note Facility Evaluation note Diagnosis Well woman exam with routine gynecological exam Routine gynecological examination Breast cancer screening by mammogram Encounter for osteoporosis screening in asymptomatic postmenopausal patient UTI symptoms documented in this encounter [facility] History general Narrative - Reported Note Date & Type Note Facility History general Narrative - Reported Type Medical History Esophageal reflux Medical History chronic depression Surgical History hysterectomy Hospitalization History See Above [facility] Other Summary Purpose Family History No Family History Records FoundNo Family History Records Found Advance Directives Advance Directive Response Recorded Date/ Time Advance Directives No April 04, 2024 9:07am Chief Complaint and Reason for Visit Chief Complaint Admit Date Cough, congestion, sore throat April 042024 9:09am Additional Source Comments INFORMATION SOURCE (unrecogn ized section and content) DATE CREATED AUTHOR 09/07/2022 [facility] DATE CREATED AUTHOR AUTHOR'S ORGANIZ ATION 11/20/2023 [facility] EPIC REASON FOR VISIT (unrecogniz ed section and content) Reason Comments Well Women Visit Reason Comments Gynecologic Exam Care Teams (unrecognized sec tion and content) Electronic Communications Technician Relationship Specialty Start Date End Date Kelly Maxwell MD [address] [place] [phone] PCP - General Family Medicine 09/04/22 Electronic Communications Technician Relationship Specialty Start Date End Date Kelly Maxwell MD [address] [place] [address] PCP - General Family Medicine 09/04/22 Electronic Communications Technician Relationship Specialty Start Date End Date Kelly Maxwell MD [address] [place] [address] PCP - General Family Medicine 09/04/22 Team Status: Active Member Role Status Dates Kelly Maxwell MD Primary Care Provider Active Team Status: Inactive Member Role Status Dates Kelly Maxwell MD Primary Care Provider Active Start: April 04, 2024 End: April 04, 2024 SALINA Blum RN WATER TEAM LEADER-C Active Start: April 04, 2024 End: April 04, 2024 Nisha Gil APRN Attending Provider Active Start: April 04, 2024 End: April 04, 2024 Electronic Communications Technician Relationship Specialty Start Date End Date Kelly Maxwell MD [address] [place] [address] PCP - General Family Medicine 09/04/22 Goals (unrecognized section and content) Goals may be documented in a n alternate section FOR RECORDS PERTAINING TO PATIENTS WHO ARE [...] BE BASED ON THE PRIMARY CLINICAL RECORDS. [facility]. provides no warranty or guarantee of the accuracy or completeness of information in this document.
[2024-11-26 18:10] LABS: Age Gdln ACOG Testing Note (.); IGP, Aptima HPV, rfx 16/18,45 Note (.)
== END 2024-11-23 15:08 | disposition home or self-care (01) ==
LOC: LAB 15:07
PROVIDERS: Visit Provider Physician Assistant
DX: Z01.419 Encounter for gynecological examination (general) (routine) without abnormal findings (principal)
CPT/HCPCS: 87624; 88175

== ENCOUNTER 2025-01-04 07:33 | Outpatient (OUT) | payer BC, SELFPAY ==
--- OUTSIDE RECORDS SUMMARY | 2025-01-04 07:37 | XMS_ITS | CCD ---
Author Organization [facility] Care Team Providers Care Help Desk Associate Name Role Phone ROSA ELENA Dickerson, DR MENDOZA Primary Care Unavailable ROSA ELENA ., DR MENDOZA Consulting Unavailable ROSA ELENA ., DR MENDOZA Attending Unavailable PERCYY ., DR MENDOZA Admitting Unavailable BYRON, DR ANGEL Medeiros Consulting Unavailable PERCYY ., DR MENDOZA Admitting Unavailable PERCYY ., DR MENDOZA Primary Care Unavailable PERCYY ., DR MENDOZA Consulting Unavailable PERCYY ., DR MENDOZA Attending Unavailable Nathalia Garcia Unavailable Kelly Maxwell MD Primary Care Provider [phone] Kelly Maxwell MD Primary Care Provider [phone] AMEENA CHANEY Attending Unavailable Medications Current Medications Medication Drug Class(es) [...] 2024 12:00am ergocalciferol 1.25 mg oral capsule (9 sources) Provitamin D2 Compound take 1 capsule by mouth every week ergocalciferol (Vitamin D-2) 1.25 MG (51661 UT) capsule Take 1.25 mg by mouth 1 (one) time per week. Active escitalopram 20 mg oral tablet (11 sources) Serotonin Reuptake Inhibitor Start: 06-28-2022 take 1 tablet by mouth in the morning escitalopram (Lexapro) 20 MG tablet Take 20 mg by mouth in the morning. 06/28/2022 Active Lexapro Active ibandronic acid 150 mg oral tablet (11 sources) Bisphosphonate Start: 04-04-2022 take 1 tablet by mouth every month ibandronate (Boniva) 150 MG tablet TAKE 1 TABLET BY MOUTH ONCE A MONTH 04/04/2022 Active Boniva Active pantoprazole 40 mg delayed release oral tablet (11 sources) Proton Pump Inhibitor Start: 06-28-2022 take 1 tablet by mouth in the morning pantoprazole (ProtoNix) 40 MG EC tablet Take 40 mg by mouth in the morning. 06/28/2022 Active phenazopyridine hydrochloride 100 mg oral tablet (4 sources) Start: 11-23-2024 End: 11-26-2024 take 1 [...] involving the genitourinary system] 11-23-2024 Episodic Osteoporosis (5 sources) Osteoporosis; Translations: [Other osteoporosis without current [...] Test Name Value Interpretation Reference Range Facility IGP,APTIMA HPV,AGE GDLNon AGE GDLN ACOG TESTING Note . [facility] Comment on above: TESTS RESULT FLAG UN ITS REF RANGE LAB Clinician Provided Cytology Information Source.............Vagina LMP / Prev Treat...Hyst Tot Other..............Other No. of containers..01 ThinPrep Vial Age Algo ACOG Ana... FLAG LEGEND: L-Low Normal,H-High Normal,LL-Alert Low,HH-Alert High <-Panic Low,>-Panic High,A-Abnormal,AA-Critical Abnormal Performed at: 01 =[address] [address] Frances Zuniga MD, HPV APTIMA Negative Negative [facility] Comment on above: This nucleic acid am plification test detects fourteen high- risk HPV types (16,18,31,33,35,39,45,51,52,56,58,59,66,68) without differentiation. Performed at: =[address] [id number] [employer] Inspector: Frances Zuniga MD, Phone: [phone] Performed at: [address] [id number] [employer] Inspector: Frances Zuniga MD, Phone: [phone] IGP, APTIMA HPV, RFX 16/18,45 Note . [facility] Comment on above: TESTS RESULT FLAG UN ITS REF RANGE LAB DIAGNOSIS: 02 NEGATIVE FOR INTRAEPITHELIAL LESION OR MALIGNANCY. Specimen adequacy: 02 Satisfactory for evaluation. No endocervical cells are present. This is consistent with a history of hysterectomy. Performed by: Stefanie Duke, Field Scout ([facility]) . 02 Note: Note 02 The Pap smear is a screening test designed to aid in the detection of premalignant and malignant conditions of the uterine cervix. It is not a diagnostic procedure and should not be used as the sole means of detecting cervical cancer. Both false-positive and false-negative reports do occur. Test Methodology: Note 02 This liquid based ThinPrep(R) pap test was screened with the use of an image guided system. HPV Genotype Reflex Note 02 Criteria not met, HPV Genotype not performed. FLAG LEGEND: L-Low Normal,H-High Normal,LL-Alert Low,HH-Alert High <-Panic Low,>-Panic High,A-Abnormal,AA-Critical Abnormal Performed at: [address] [address] Frances Zuniga MD, SPATULA-ALONE [id number] HYST-TOTAL VAGINA [facility] No Panel Informationon 11-25 STAPHYLOCOCCUS EPIDERMIDIS, HAEMOLYTICUS, LUGDUNENSIS, SAPROPHYTICUS (URINA 0 [facility] STAPHYLOCOCCUS EPIDERMIDIS, HAEMOLYTICUS, LUGDUNENSIS, SAPROPHYTICUS (URINA Not detected [facility] URINARY TRACT INFECTION (HTR X)on 11-25-2024 ACINETOBACTER BAUMANII 0 [facility] ACINETOBACTER BAUMANII Not detected [facility] [place] ALBICANS, PARAPSILOSIS, TROPICALIS 0 [facility] [place] ALBICANS, PARAPSILOSIS, TROPICALIS Not detected [facility] [place] GLABRATA 0 [facility] [place] GLABRATA Not detected [facility] [place] KRUSEI 0 [facility] [place] KRUSEI Not detected [facility] CITROBACTER FREUNDII 0 [facility] CITROBACTER FREUNDII Not detected [facility] ENTEROBACTER AEROGENES, CLOACAE 0 [facility] ENTEROBACTER AEROGENES, CLOACAE Not detected [facility] ENTEROCOCCUS FAECALIS, FAECIUM 0 [facility] ENTEROCOCCUS FAECALIS, FAECIUM Not detected [facility] ESCHERICHIA COLI 0 [facility] ESCHERICHIA COLI Not detected [facility] KLEBSIELLA PNEUMONIAE, OXYTOCA 0 [facility] KLEBSIELLA PNEUMONIAE, OXYTOCA Not detected [facility] MORGANELLA MORGANII 0 [facility] MORGANELLA MORGANII Not detected [facility] PROTEUS MIRABILIS, VULGARIS 0 [facility] PROTEUS MIRABILIS, VULGARIS Not detected [facility] PSEUDOMONAS AERUGINOSA 0 [facility] PSEUDOMONAS AERUGINOSA Not detected [facility] SERRATIA MARCESCENS 0 [facility] SERRATIA MARCESCENS Not detected [facility] STAPHYLOCOCCUS AUREUS 0 [facility] STAPHYLOCOCCUS AUREUS Not detected [facility] STREPTOCOCCUS AGALACTIAE (GROUP B STREP) 0 [facility] STREPTOCOCCUS AGALACTIAE (GROUP B STREP) Not detected [facility] STREPTOCOCCUS PYOGENES (GROUP A STREP) 0 [facility] STREPTOCOCCUS PYOGENES (GROUP A STREP) Not detected [facility] Urinalysis macro (dipstick) panel (U)on 11-23-2024 Bilirubin, UA Negative Negative - 4(70) +++ mg/dL [facility] Blood, UA Negative Negative - 50 Yovany/mcL [facility] Clarity, UA Clear [facility] Color, UA Yellow [facility] Glucose, UA Negative Negative - 2000(110) ++++ mg/dL [facility] Interpretation and review of laboratory results Normal [facility] Ketones, UA Negative Negative - 160(16) ++++ mg/dL [facility] Leukocytes, UA Negative Negative - 500+++ John/mcL [facility] Nitrite, UA Negative Negative - Positive [facility] pH, UA 6 5 - 9 [facility] Protein, UA Negative Negative - 2000(20) ++++ mg/dL [facility] Spec Grav, UA 1.015 1 - 1.03 [facility] Urobilinogen, UA 1.0 0.2 - 12 mg/dL [facility] No Panel InformationOrdered By: Nisha Gil on 04-04-2024 Quick Strep (POC) [facility] IGP,APTIMA HPV,AGE GDLNon AGE GDLN ACOG TESTING Note . [facility] Comment on above: TESTS RESULT FLAG UN ITS REF RANGE LAB Clinician Provided Cytology Information Source.............Vagina No. of containers..01 ThinPrep Vial Age Sybil BAJWA Ana... 29 FLAG LEGEND: L-Low Normal,H-High Normal,LL-Alert Low,HH-Alert High <-Panic Low,>-Panic High,A-Abnormal,AA-Critical Abnormal Performed at: 01 =[address] [address] Frances Zuniga MD, HPV APTIMA Negative Negative [facility] Comment on above: This nucleic acid am plification test detects fourteen high- risk HPV types (16,18,31,33,35,39,45,51,52,56,58,59,66,68) without differentiation. Performed at: =[address] [id number] [employer] Inspector: Frances Zuniga MD, Phone: [phone] Performed at: [facility] [address] [place] [id number] [employer] Inspector: Andrei Noonan MD, Phone: [phone] IGP, APTIMA HPV, RFX 16/18,45 Note . [facility] Comment on above: TESTS RESULT FLAG UN ITS REF RANGE LAB DIAGNOSIS: 02 NEGATIVE FOR INTRAEPITHELIAL LESION OR MALIGNANCY. CELLULAR CHANGES ASSOCIATED WITH ATROPHY ARE PRESENT. Specimen adequacy: 02 Satisfactory for evaluation. Performed by: 02 Asha Renee Mason Foreman/Superintendant (ASCP) . 02 Note: Note 03 The [...] High,A-Abnormal,AA-Critical Abnormal Performed at: 02 [facility] [address] [place] [address] Andrei Noonan MD, 03 WB [facility] [address] [address] Frances Zuniag MD, SPATULA-ALONE VAGINA [facility] Cytology Cervical or vaginal smear or scraping studyOrdered By: Maci Perry on 11-19-2023 [facility] CBC AUTO DIFFon 08-28-2022 BASO # 0.1 103/ul Normal 0.0-0.1 [facility] Comment on above: Performed By: #### I NICOLE #### [facility] [address] [address] [address] Donte Palacio Basophils/100 WBC (Bld) 0.7 % Normal 0.2-2.0 [facility] Comment on above: Performed By: #### I NICOLE #### [facility] [address] [place] [address] Dr. Donte Palacio EO # 0.1 103/ul Normal 0.0-0.7 [facility] Comment on above: Performed By: #### I NICOLE #### [facility] [address] [place] [address] Dr. Donte Palacio Eosinophils/100 WBC (Bld) 1.6 % Normal 0.9-7.0 [facility] Comment on above: Performed By: #### I NICOLE #### [facility] [address] [place] [address] Dr. Donte Palacio Erythrocyte distribution width (RBC) [Ratio] 13.1 % Normal 11.0-15.0 [facility] Comment on above: Performed By: #### I NICOLE #### [facility] [address] [place] [address] Dr. Donte Palacio Hematocrit (Bld) [Volume fraction] 40.4 % Normal 36.0-48.0 [facility] Comment on above: Performed By: #### I NICOLE #### [facility] [address] [place] [address] Dr. Donte Palacio Hemoglobin (Bld) [Mass/Vol] 13.2 g/dL Normal 12.0-16.0 [facility] Comment on above: Performed By: #### I NICOLE #### [facility] [address] [place] [address] Dr. Donte Palacio IG # 0.02 10e3/ul Normal 0.00-0.03 [facility] Comment on above: Performed By: #### I NICOLE #### [facility] [address] [place] [address] Dr. Donte Palacio IG % 0.3 % Normal 0.0-0.5 [facility] Comment on above: Performed By: #### I NICOLE #### [facility] [address] [place] [address] Dr. Donte Palacio LYMPH # 2.0 103/ul Normal 1.2-3.8 [facility] Comment on above: Performed By: #### I NICOLE #### [facility] [address] [place] [address] Dr. Donte Palacio Lymphocytes/100 WBC (Bld) 30.4 % Normal 20.5-60.0 [facility] Comment on above: Performed By: #### I NICOLE #### [facility] [address] [place] [address] Dr. Donte Palacio MANUAL DIFF REQ NO Normal [facility] Comment on above: Performed By: #### I NICOLE #### [facility] [address] [place] [address] Dr. Donte Palacio MCH (RBC) [Entitic mass] 29.2 pg Normal 26.7-34.0 [facility] Comment on above: Performed By: #### I NICOLE #### [facility] [address] [place] [address] Dr. Donte Palacio MCHC (RBC) [Mass/Vol] 32.7 g/dL Normal 29.9-35.2 [facility] Comment on above: Performed By: #### I NICOLE #### [facility] [address] [place] [address] Dr. Donte Palacio MCV (RBC) [Entitic vol] 89.4 fL Normal 81.0-99.0 [facility] Comment on above: Performed By: #### I NICOLE #### [facility] [address] [place] [address] Dr. Donte Palacio MONO # 0.5 103/ul Normal 0.3-0.8 [facility] Comment on above: Performed By: #### I NICOLE #### [facility] [address] [place] [address] Dr. Donte Palacio Monocytes/100 WBC (Bld) 7.2 % Normal 1.7-12.0 [facility] Comment on above: Performed By: #### I NICOLE #### [facility] [address] [place] [address] Dr. Donte Palacio NEUT # 4.0 103/ul Normal 1.4-6.5 [facility] Comment on above: Performed By: #### I NICOLE #### [facility] [address] [place] [address] Dr. Donte Palacio Neutrophils/100 WBC (Bld) 59.8 % Normal 43.0-75.0 [facility] Comment on above: Performed By: #### I NICOLE #### [facility] [address] [place] [address] Dr. Donte Palacio Platelet mean volume (Bld) [Entitic vol] 10.2 fL Normal 9.5-13.5 [facility] Comment on above: Performed By: #### I NICOLE #### [facility] [address] [place] [address] Dr. Donte Palacio PLT 246 103/ul Normal 150-450 [facility] Comment on above: Performed By: #### I NICOLE #### [facility] [address] [place] [address] Dr. Donte Palacio RBC 4.52 106/ul Normal 4.20-5.40 [facility] Comment on above: Performed By: #### I NICOLE #### [facility] [address] [place] [address] Dr. Donte Palacio WBC 6.7 103/ul Normal 4.0-11.0 [facility] Comment on above: Performed By: #### I NICOLE #### [facility] [address] [place] [address] Dr. Donte Palacio CULTURE URINEon 08-28-2022 CULTURE URINE Culture Observations: NO GROWTH. Normal [facility] Comment on above: Performed By: #### U RCX #### [facility] [address] [place] [address] Dr. Donte Palacio FREE T3on 08-28-2022 FREE T3 2.80 pg/mlL Normal 2.18-3.98 [facility] Comment on above: Performed By: #### C MP, LIPID, T4, FT3, TSH #### [facility] [address] [place] [address] Dr. Donte Palacio GLYCOHEMOGLOBIN A1Con 2022 ADA RECOMMENDATION SEE BELOW Normal [facility] Comment on above: Result Comment: ADA RECOMMENDED LIMIT 4.0 - 6.0 ADA THERAPEUTIC TARGET < 7.0 ACTION SUGGESTED > 7.0 Performed By: #### A 1C #### [facility] [address] [place] [address] Dr. Donte Palacio Glucose [Mass/Vol] 100 mg/dL Normal [facility] Comment on above: Performed By: #### A 1C #### [facility] [address] [place] [address] Dr. Donte Palacio HbA1c (Bld) [Mass fraction] 5.1 % Normal 4.5-6.2 [facility] Comment on above: Performed By: #### A 1C #### [facility] [address] [place] [address] Dr. Donte Palacio IRONon 08-28-2022 Iron [Mass/Vol] 74.0 ug/dL Normal 50.0-170.0 [facility] Comment on above: Performed By: #### I NICOLE #### [facility] [address] [place] [address] Dr. Donte Palacio LIPID PROFILEon 08-28-2022 CHOL-HDL RATIO NORM SEE BELOW Normal [facility] Comment on above: Result Comment: 3.3 - 4.4 LOW RISK 4.4 - 7.1 AVERAGE RISK 7.1 - 11.0 MODERATE RISK >11.0 HIGH RISK Performed By: #### C MP, LIPID, T4, FT3, TSH #### [facility] [address] [place] [address] Dr. Donte Palacio Cholesterol [Mass/Vol] 212 mg/dL Critically high <=200 [facility] Comment on above: Performed By: #### C MP, LIPID, T4, FT3, TSH #### [facility] [address] [place] [address] Dr. Donte Palacio Cholesterol in HDL [Mass/Vol] 71 mg/dL Critically high 40-60 [facility] Comment on above: Performed By: #### C MP, LIPID, T4, FT3, TSH #### [facility] [address] [place] [address] Dr. Donte Palacio Cholesterol in LDL [Mass/Vol] 117.2 mg/dL Normal [facility] Comment on above: Performed By: #### C MP, LIPID, T4, FT3, TSH #### [facility] [address] [address] [address] Donte Palacio Cholesterol.total/Chol esterol in HDL [Mass ratio] 3.0 {ratio} Normal [facility] Comment on above: Performed By: #### C MP, LIPID, T4, FT3, TSH #### [facility] [address] [address] [address] Donte Palacio HDL NORMAL > or = 60 mg/dl - LOW CARDIOVASCULAR RISK <40 mg/dl - HIGH CARDIOVASCULAR RISK Normal [facility] Comment on above: Performed By: #### C MP, LIPID, T4, FT3, TSH #### [facility] [address] [address] [address] Donte Palacio LDL CALC NORMAL SEE BELOW Normal [facility] Comment on above: Result Comment: <100 mg/dl OPTIMAL 100 - 129 mg/dl NEAR OR ABOVE OPTIMAL 130 - 159 mg/dl BORDERLINE HIGH 160 - 189 mg/dl HIGH >190 mg/dl VERY HIGH Performed By: #### C MP, LIPID, T4, FT3, TSH #### [facility] [address] [address] [address] Donte Palacio Triglyceride [Mass/Vol] 119 mg/dL Normal <=150 [facility] Comment on above: Performed By: #### C MP, LIPID, T4, FT3, TSH #### [facility] [address] [address] [address] Donte Palacio VLDL CALC 23.8 mg/dL Normal [facility] Comment on above: Performed By: #### C MP, LIPID, T4, FT3, TSH #### [facility] [address] [address] [address] Donte Palacio MG MAMM SCREEN 3D JAYLA CADon 08-28-2022 MG MAMM SCREEN 3D JAYLA CAD Patient: AMEENA COELLO Exam Date: 08/28/2022 : 1970 Gender:F Ordering : DR KELLY MAXWELL . Admission #: [id number] Family : Order #: [id number] CLICK HERE TO VIEW EXAM RADIOLOGY REPORT [...] unknown cancer at age 79. LOCATION: [facility] BREAST COMPOSITION: Scattered areas fibroglandular density. FINDINGS: [...] Bradford MD on 08/28/2022 at 11:04 Normal [facility] PROF 14(COMP METB)on 08-28- 023 Albumin [Mass/Vol] 4.1 g/dL Normal 3.4-5.0 [facility] Comment on above: Performed By: #### C MP, LIPID, T4, FT3, TSH #### [facility] [address] [place] [address] Dr. Donte Palacio Albumin/Globulin [Mass ratio] 1.1 {ratio} Normal [facility] Comment on above: Performed By: #### C MP, LIPID, T4, FT3, TSH #### [facility] [address] [place] [address] Dr. Donte Palacio ALP [Catalytic activity/Vol] 77 U/L Normal 46-116 [facility] Comment on above: Performed By: #### C MP, LIPID, T4, FT3, TSH #### [facility] [address] [place] [address] Dr. Donte Palacio ALT [Catalytic activity/Vol] 32 U/L Normal 14-59 [facility] Comment on above: Performed By: #### C MP, LIPID, T4, FT3, TSH #### [facility] [address] [place] [address] Dr. Donte Palacio Anion gap [Moles/Vol] 11.5 mmol/L Normal [facility] Comment on above: Performed By: #### C MP, LIPID, T4, FT3, TSH #### [facility] [address] [place] [address] Dr. Donte Palacio AST [Catalytic activity/Vol] 21 U/L Normal 15-37 [facility] Comment on above: Performed By: #### C MP, LIPID, T4, FT3, TSH #### [facility] [address] [place] [address] Dr. Donte Palacio Bilirubin [Mass/Vol] 0.3 mg/dL Normal 0.2-1.0 [facility] Comment on above: Performed By: #### C MP, LIPID, T4, FT3, TSH #### [facility] [address] [place] [address] Dr. Donte Palacio Calcium [Mass/Vol] 9.1 mg/dL Normal 8.5-10.1 [facility] Comment on above: Performed By: #### C MP, LIPID, T4, FT3, TSH #### [facility] [address] [place] [address] Dr. Donte Palacio Chloride [Moles/Vol] 102 mmol/L Normal 98-107 [facility] Comment on above: Performed By: #### C MP, LIPID, T4, FT3, TSH #### [facility] [address] [place] [address] Dr. Donte Palacio CO2 [Moles/Vol] 31.7 mmol/L Normal 21.0-32.[address] [facility] Comment on above: Performed By: #### C MP, LIPID, T4, FT3, TSH #### [facility] [address] [place] [address] Dr. Donte Palacio Creatinine [Mass/Vol] 0.75 mg/dL Normal 0.55-1.02 [facility] Comment on above: Performed By: #### C MP, LIPID, T4, FT3, TSH #### [facility] [address] [place] [address] Dr. Donte Palacio EGFR-AF ROMANIAN >60 Normal >=60 [facility] Comment on above: Performed By: #### C MP, LIPID, T4, FT3, TSH #### [facility] [address] [place] [address] Dr. Donte Palacio EGFR-NON AF ROMANIAN >60 Normal >=60 [facility] Comment on above: Performed By: #### C MP, LIPID, T4, FT3, TSH #### [facility] [address] [place] [address] Dr. Donte Palacio Globulin (S) [Mass/Vol] 3.8 g/dL Normal [facility] Comment on above: Performed By: #### C MP, LIPID, T4, FT3, TSH #### [facility] [address] [place] [address] Dr. Donte Palacio Glucose [Mass/Vol] 87 mg/dL Normal 74-106 [facility] Comment on above: Performed By: #### C MP, LIPID, T4, FT3, TSH #### [facility] [address] [place] [address] Dr. Donte Palacio Potassium [Moles/Vol] 4.2 mmol/L Normal 3.5-5.1 [facility] Comment on above: Performed By: #### C MP, LIPID, T4, FT3, TSH #### [facility] [address] [place] [address] Dr. Donte Palacio Protein [Mass/Vol] 7.9 g/dL Normal 6.4-8.2 [facility] Comment on above: Performed By: #### C MP, LIPID, T4, FT3, TSH #### [facility] [address] [place] [address] Dr. Donte Palacio Sodium [Moles/Vol] 141 mmol/L Normal 136-145 [facility] Comment on above: Performed By: #### C MP, LIPID, T4, FT3, TSH #### [facility] [address] [place] [address] Dr. Donte Palacio Urea nitrogen [Mass/Vol] 12.0 mg/dL Normal 7.0-18.0 [facility] Comment on above: Performed By: #### C MP, LIPID, T4, FT3, TSH #### [facility] [address] [address] [address] Donte Palacio Urea nitrogen/Creatinine [Mass ratio] 16.0 mg/mg Normal [facility] Comment on above: Performed By: #### C MP, LIPID, T4, FT3, TSH #### [facility] [address] [place] [address] Dr. Donte Palacio T4on 08-28-2022 T4 [Mass/Vol] 8.90 ug/dL Normal 4.80-13.90 [facility] Comment on above: Performed By: #### C MP, LIPID, T4, FT3, TSH #### [facility] [address] [place] [address] Dr. Donte Palacio TSHon 08-28-2022 TSH 1.998 uIU/mL Normal 0.358-3.740 [facility] Comment on above: Performed By: #### C MP, LIPID, T4, FT3, TSH #### [facility] [address] [place] [address] Dr. Donte Palacio UA RANDOM W/MICROSCOPICon BACTERIA TRACE Abnormal NONE SEEN [facility] Comment on above: Performed By: #### U AMIC #### [facility] [address] [place] [address] Dr. Donte Palacio Bilirubin Ql (U) Negative Normal NEGATIVE [facility] Comment on above: Performed By: #### U AMIC #### [facility] [address] [place] [address] Dr. Donte Palacio CAST NONE SEEN Normal NONE SEEN [facility] Comment on above: Performed By: #### U AMIC #### [facility] [address] [place] [address] Dr. Donte Palacio Clarity (U) CLEAR Normal CLEAR [facility] Comment on above: Performed By: #### U AMIC #### [facility] [address] [place] [address] Dr. Donte Palacio Color (U) LT. YELLOW Normal YELLOW [facility] Comment on above: Performed By: #### U AMIC #### [facility] [facility] [address] [address] [address] Donte Palacio Crystals LM Nom (Urine sed) NONE SEEN Normal NONE SEEN [facility] Comment on above: Performed By: #### U AMIC #### [facility] [address] [address] [address] Donte Palacio Epithelial cells LM Ql (Urine sed) RARE Normal NONE SEEN /RARE [facility] Comment on above: Performed By: #### U AMIC #### [facility] [address] [address] [address] Donte Palacio Glucose Ql (U) Negative Normal NEGATIVE [facility] Comment on above: Performed By: #### U AMIC #### [facility] [address] [address] [address] Donte Palacio Hemoglobin Ql (U) TRACE-INTACT Abnormal NEGATIVE [facility] Comment on above: Performed By: #### U AMIC #### [facility] [address] [address] [address] Donte Palacio Ketones Ql (U) Negative Normal NEGATIVE [facility] Comment on above: Performed By: #### U AMIC #### [facility] [address] [address] [address] Donte Palacio LEUKOCYTES Negative Normal NEGATIVE [facility] Comment on above: Performed By: #### U AMIC #### [facility] [address] [address] [address] Donte Palacio MUCOUS NONE SEEN Normal NONE SEEN [facility] Comment on above: Performed By: #### U AMIC #### [facility] [address] [address] [address] Donte Palacio Nitrite Ql (U) Negative Normal NEGATIVE [facility] Comment on above: Performed By: #### U AMIC #### [facility] [address] [address] [address] Donte Palacio pH (U) 6.0 [pH] Normal 5-9 [facility] Comment on above: Performed By: #### U AMIC #### [facility] [address] [address] [address] Donte Palacio RBC 0-2 Normal 0-2 [facility] Comment on above: Performed By: #### U AMIC #### [facility] [address] [place] [address] Dr. Donte Palacio SPEC GRAVITY <=1.005 Abnormal 1.005-<=1.025 [facility] Comment on above: Performed By: #### U AMIC #### [facility] [address] [place] [address] Dr. Donte Palacio UA PROTEIN Negative Normal NEGATIVE/ TRACE [facility] Comment on above: Performed By: #### U AMIC #### [facility] [address] [place] [address] Dr. Donte Palacio Urobilinogen Qn (U) 0.2 {Paige'U}/dL Normal 0.2 - 1. 0 [facility] Comment on above: Performed By: #### U AMIC #### [facility] [address] [place] [address] Dr. Donte Palacio WBC NONE SEEN Normal NONE SEEN [facility] Comment on above: Performed By: #### U AMIC #### [facility] [address] [place] [address] Dr. Donte Palacio Covid-19 PCR (CVDTB)on SARS-CoV-2 (COVID-19) RNA MARQUES+probe Ql (Unsp spec) Not detected Normal NOT DETECTED [facility] Comment on above: Result Comment: This test is not yet approved or cleared by the [place] FDA. When there are no FDA-approved or cleared tests available, and other criteria are met, FDA can make tests available under an emergency access mechanism called an Emergency Use Authorization (EUA). The EUA for this test is supported by the [place] of Health and Human Service's (HHS's) declaration [...] SARS-CoV-2. Performed By: #### I NICOLE #### [facility] [address] [place] [address] Dr. Donte Palacio INFLUENZA A AND B [facility] Normal [facility] Comment on above: Result Comment: Nega tive for Flu A protein angiten. Infection due to Flu A cannot be ruled out. Flu A angiten in the sample may be below the detection limit of the test. Performed By: #### I NICOLE #### [facility] [address] [place] [address] Dr. [facility] Normal [facility] Comment on above: Result Comment: Nega tive for Flu B protein antigen. Infection due to Flu B cannot be ruled out. Flu B antigen in the sample may be below the detection limit of the test. Performed By: #### I NICOLE #### [facility] [address] [place] [address] Dr. Donte Palacio INFLUENZA A AG Negative Normal NEGATIVE SEE COMMENT [facility] Comment on above: Performed By: #### I NICOLE #### [facility] [address] [place] [address] Dr. Donte Palacio INFLUENZA B AG Negative Normal NEGATIVE SEE COMMENT [facility] Comment on above: Performed By: #### I NICOLE #### [facility] [address] [place] [address] Dr. Donte Palacio INTERNAL CONTROLS Within Normal Limits Normal Wi thin Normal Limits [facility] Comment on above: Performed By: #### I NICOLE #### [facility] [address] [place], [place] [id number] Dr. Donte Palacio Vital Signs Date Time Vital Sign Value Performing Clinician Facility 11-23-2024 09:10-0400 Body height 165.1 cm Ameena GRIMM Work Phone: [facility] 11-23-2024 09:10-0400 Body mass index (BMI) [Ratio] 29.95 kg/m2 Ameena Chaney PA Work Phone: [facility] 11-23-2024 09:10-0400 Body weight 81.65 kg Ameena Yoana PA Work Phone: [facility] 11-23-2024 09:10-0400 Diastolic blood pressure 78 mm[Hg] Ameena Yoana PA Work Phone: [facility] 11-23-2024 09:10-0400 Systolic blood pressure 128 mm[Hg] Ameena Yoana PA Work Phone: [facility] 04-04-2024 09:13-0500 Body height 165.1 cm [facility] 04-04-2024 09:13-0500 Body mass index (BMI) [Ratio] 29.5 kg/m2 [facility] 04-04-2024 09:13-0500 Body temperature 98.6 [degF] [facility] 04-04-2024 09:13-0500 Body weight 80.45 kg [facility] 04-04-2024 09:13-0500 Diastolic blood pressure 72 mm[Hg] [facility] 04-04-2024 09:13-0500 Heart rate 99 /min [facility] 04-04-2024 09:13-0500 Respiratory rate 16 /min [facility] 04-04-2024 09:13-0500 SaO2% (BldA) [Mass fraction] 94 % [facility] 04-04-2024 09:13-0500 Systolic blood pressure 119 mm[Hg] [facility] 11-19-2023 08:47-0400 Body height 165.1 cm Ameena Chaney PA Work Phone: [facility] 11-19-2023 08:47-0400 Body mass index (BMI) [Ratio] 29.02 kg/m2 Ameena Chaney PA Work Phone: [facility] 11-19-2023 08:47-0400 Body weight 79.11 kg Ameena Chaney PA Work Phone: [facility] 11-19-2023 08:47-0400 Diastolic blood pressure 70 mm[Hg] Ameena GRIMM Work Phone: [facility] 11-19-2023 08:47-0400 Systolic blood pressure 130 mm[Hg] Ameena GRIMM Work Phone: [facility] 03-21-2023 16:55-0500 Body height 165.1 cm Nathalia kubo financiero Other [employer] Other 03-21-2023 16:55-0500 Body mass index (BMI) [Ratio] 28.67 kg/m2 Nathalia kubo financiero Other [employer] Other 03-21-2023 16:55-0500 Body temperature 98.1 [degF] Nathalia kubo financiero Other [employer] Other 03-21-2023 16:55-0500 Body weight 78.16 kg Nathalia Garcia Other [employer] Other 03-21-2023 16:55-0500 Respiratory rate 18 /min Nathalia Garcia Other [employer] Other 03-21-2023 16:55-0500 SaO2% (BldA) [Mass fraction] 98 % Nathalia Garcia Other [employer] Other Encounters Encounter Date Encounter Type Care Provider Facility Start: 11-23-2024 End: 11-23-2024 Bamboo flowsheet Ameena GRIMM Work Phone: [facility] Start: 11-23-2024 End: 11-26-2024 Bamboo flowsheet Ameena GRIMM Work Phone: [facility] Start: 11-23-2024 End: 11-26-2024 Clinisync Result Encounter Ameena GRIMM Work Phone: [facility] Unsolicited Start: 11-23-2024 End: 11-25-2024 External Result Encounter Ameena GRIMM Work Phone: [facility] Unsolicited Start: 11-23-2024 End: 11-23-2024 Patient encounter procedure Ameena GRIMM Work Phone: [facility] Start: 11-23-2024 End: 11-23-2024 Periodic preventive med est patient 40-64yrs Ameena GRIMM Work Phone: [facility] Comment on above: Well woman exam with routine gynecological exam; Breast cancer screening by mammogram; Encounter for osteoporosis screening in asymptomatic postmenopausal patient; UTI symptoms Start: 11-23-2024 End: 11-23-2024 ambulatory AMEENA CHANEY Not Available Start: 04-04-2024 End: 04-04-[address] [facility] Work Phone: Start: 04-04-2024 End: 04-04-2024 Patient encounter procedure [facility] Work Phone: Start: 11-19-2023 [...] patient 40-64yrs Ameena GRIMM Work Phone: [facility] Comment on above: Well woman exam with routine gynecological exam; Breast cancer screening by mammogram; Postmenopausal state Start: 03-21-2023 End: 03-21-2023 ambulatory Nathalia Garcia Other [employer] Other Start: 03-21-2023 Office outpatient ne w 30 minutes Nathalia Garcia [facility] Start: 08-29-2022 Encounter for genera l adult medical examination without abnormal findings DR KELLY MAXWELL . [facility] Start: 08-28-2022 End: 08-29-[address] KELLY MAXWELL . Facility: Start: 08-28-2022 End: 08-29-2022 Encounter for general adult medical examination without abnormal findings DR KELLY MAXWELL . Facility: Start: 03-01-2022 End: 03-01-[address] KELLY MAXWELL . Facility: Procedures Date Procedure Procedure Detail Performing Clinician Start: 11-23-2024 URINARY TRACT INFECT ION (HTRX) Ameena GRIMM Work Phone: Start: 11-23-2024 Urnls dip stick/tabl et rgnt non-auto w/o micrscp Ameena GRIMM Work Phone: Start: 11-23-2024 IGP,APTIMA HPV,AGE GDLN Ameena GRIMM Work Phone: Start: 04-04-2024 Quick [...] 11-16-2027 Screening for malignant neoplasm of cervix [facility] Start: 11-18-2026 Screening for malignant neoplasm of cervix Pap Smear [facility] Start: 11-29-2025 End: 11-29-2025 Patient encounter procedure 11/29/2025 9:00 AM EDT Procedure Visit [facility] [address] [place] [phone] Ameena Chaney PA [address] [place], [place] [id number] [facility] Start: 11-30-2024 Influenza vaccination Influenza Vacc ine (#1) [facility] Start: 11-23-2024 End: 11-23-2025 DXA Skeletal system Views for bone density DEXA bone density Imaging Routine Encounter for osteoporosis screening in asymptomatic postmenopausal patient Expected: 11/23/2024 (Approximate), Expires: 11/23/2025 [facility] Comment on above: Expected: 11/23/2024 (Approximate), Expires: 11/23/2025 Start: 11-23-2024 End: 01-23-2026 MG Breast - bilateral Screening Bilateral screening mammogram Imaging Routine Breast cancer screening by mammogram Expected: 11/23/2024 (Approximate), Expires: 01/23/2026 [facility] Work Phone: Comment on above: Expected: 11/23/2024 (Approximate), Expires: 01/23/2026 Start: 11-23-2024 End: 11-23-2024 Patient encounter procedure [facility] Comment on above: Arrived Start: 12-01-2023 Influenza vaccination Influenza Vacc ine (#1) [facility] Start: 11-19-2023 End: 11-19-2023 Patient encounter procedure 11/19/2023 8:30 AM EDT Office Visit [facility] [address] [place] [phone] Ameena Chaney PA [address] [place], [place] [id number] Arrived [facility] Comment on above: Arrived Start: 2009 Screening for malignant neoplasm of breast Mammogram [facility] Start: 1990 Screening for malignant neoplasm of cervix Pap Smear [facility] Start: 1969 Screening for malignant neoplasm of colon [facility] THIN PREP TIS PAP AN D HR HPV DNA THIN PREP TIS PAP AND HR HPV DNA Pathology and Cytology Routine Well woman exam with routine gynecological exam Ordered: 11/19/2023 [facility] Work Phone: Comment on above: Ordered: 11/19/2023 THIN PREP TIS PAP AN D HR HPV DNA THIN PREP TIS PAP AND HR HPV DNA Pathology and Cytology Routine Well woman exam with routine gynecological exam Ordered: 11/23/2024 [facility] Comment on above: Ordered: 11/23/2024 Immunizations Immunization Date Immunization Notes Care Provider [facility] 12-14-2023 influenza virus vacc ine, unspecified formulation Ameena GRIMM Work Phone: [facility] 01-13-2023 influenza virus vacc ine, unspecified formulation Ameena GRIMM Work Phone: [facility] Payers Date Payer Category Payer [facility] [id number] 2023 Managed Care HMO (unspecified) [employer] [id number] 2023-Present [address] [place] [address] O [id number] 1970 Unknown [id number] 1970 Unknown [id number] 1970 Unknown [id number] 1959 Unknown [id number] Private Health Insurance [id number] Unknown [place] [id number] Social History Date Type Detail Facility Unknown if ever smoked [facility] [employer] Other Sex Assigned At [employer] [facility] [employer] Other Tobacco smoking status PRIS Tobacco smoking consumption unknown [facility] Start: 1970 Sex assigned at Not on file [facility] Start: 04-04-2024 [facility] Never smoked tobacco (finding) [facility] Start: 04-04-2024 Sex Female (finding) [facility] Start: 1970 Sex Assigned At Female F [facility] History of Present illness Narrative 11-23-2024 ALFA [...] nursing note reviewed. Exam conducted with a manager mental health present. Vitals: Estimated body mass index is [...] a 53 y.o. female who presents for [facility] Women Visit Patient presents today for Annual [...] nursing note reviewed. Exam conducted with a manager mental health present. Vitals: Estimated body mass index is [...] of: ALFA Ibarra documented in this encounter [facility] Evaluation note 03-21-2023 Note Date & Type [...] understanding and is agreeable to treatment plan [employer] Other Evaluation note Note Date & Type Note Facility Evaluation note Diagnosis Well woman exam with routine gynecological exam Routine gynecological examination Breast cancer screening by mammogram Postmenopausal state Asymptomatic postmenopausal status (age-related) (natural) documented in this encounter [facility] Evaluation note Note Date & Type Note Facility Evaluation note No assessment information availa [facility] Work Phone: Evaluation note Note Date [...] Surgical History hysterectomy Hospitalization History See Above [employer] Other Summary Purpose Family History No Family History Records FoundNo Family History Records Found Advance Directives Advance Directive Response Recorded Date/ Time Advance Directives No April 04, 2024 9:07am Chief Complaint and Reason for Visit Chief Complaint Admit Date Cough, congestion, sore throat April 042024 9:09am Additional Source Comments INFORMATION SOURCE (unrecogn ized section and content) DATE CREATED AUTHOR 09/07/2022 [facility] DATE CREATED AUTHOR AUTHOR'S ORGANIZ ATION 11/24/2024 [facility] dical Specialists EPIC REASON FOR VISIT (unrecogniz ed section and content) Reason Comments Well Women Visit Reason Comments Gynecologic Exam Care Teams (unrecognized sec tion and content) Help Desk Associate Relationship Specialty Start Date End Date Kelly Maxwell MD [address] [place] [address] PCP - General Family Medicine 09/04/22 Help Desk Associate Relationship Specialty Start Date End Date Kelly Maxwell MD [address] [place] [address] PCP - General Family Medicine 09/04/22 Help Desk Associate Relationship Specialty Start Date End Date Kelly Maxwell MD [address] [place] [facility] [place] [address] PCP - General Family Medicine 09/04/22 Team Status: Active Member Role Status Dates Kelly Maxwell MD Primary Care Provider Active Team Status: Inactive Member Role Status Dates Kelly Maxwell MD Primary Care Provider Active Start: April 04, 2024 End: April 04, 2024 SALINA Blum RN [employer] Active Start: April 04, 2024 End: April 04, 2024 Nisha Gil APRN Attending Provider Active Start: April 04, 2024 End: April 04, 2024 Help Desk Associate Relationship Specialty Start Date End Date Kelly Maxwell MD [address] [place] [facility] [place] [address] PCP - General Family Medicine 09/04/22 Help Desk Associate Relationship Specialty Start Date End Date Kelly Maxwell MD [address] [place] [phone] PCP - General Family Medicine 09/04/22 Goals [...] BE BASED ON THE PRIMARY CLINICAL RECORDS. [employer] [facility]. provides no warranty or guarantee of the accuracy or completeness of information in this document.
--- NOTE | 2025-01-04 07:48 | MM_ITS ---
Patient Name: ARSENIO MCINTOSH MR#: [id number] : 1970 Exam Date: 01/04/2025 Ordering Doctor: DR KELLY CUBA . RADIOLOGY REPORT PROCEDURE: MM TOMOSYNTHESIS SCREENING BI COMPARISON: MM TOMOSYNTHESIS SCREENING BI, 09/03/2023. MG MAMM SCREEN 3D JAYLA CAD, 08/28/2022. MG MAMM SCREEN 3D JAYLA CAD, 02/27/2021. MG MAMM JAYLA SCRN W CAD DIG, 10/20/2013. INDICATIONS: Screening Calculator Name NCI Breast Cancer Risk Assessment Tool 5 Year Breast Cancer Risk 1.30% Lifetime Breast Cancer Risk 9.10% Personal Breast Cancer No Personal Ovarian Cancer No Treatments None Family Cancers Grandfather-paternal with prostate cancer at age 78; Grandmother-maternal with unknown cancer at age ~80. LOCATION: [facility] BREAST COMPOSITION: There are scattered areas of fibroglandular density. FINDINGS: RIGHT BREAST: No significant suspicious finding. Benign-appearing calcifications are present. LEFT BREAST: There is a new focal asymmetry on the left medially and superiorly at approximately the 10 o'clock position 4.5 cm deep to the nipple . Benign-appearing calcifications are present. DIAGNOSTIC CATEGORY 0--INCOMPLETE: NEED ADDITIONAL IMAGING EVALUATION. RECOMMENDATIONS: ADDITIONAL MAMMOGRAPHIC VIEWS REQUIRED: LEFT BREAST - spot compressed views of the left breast with ultrasound if necessary is recommended. Dictated by: Aakash Amato MD on 01/04/2025 at 17:10 Approved by: Aakash Amato MD on 01/04/2025 at 17:13
[2025-01-04 08:07] LABS: Hematocrit 37.0 % (36.0-48.0); Hemoglobin 12.6 g/dL (12.0-16.0); Immature Granulocytes Abs Auto 0.01 10^3/uL (0.00-0.03); Immature Granulocytes Pct Auto 0.2 % (0.0-0.5); Lymphocytes Absolute Auto 1.7 10^3/uL (1.2-3.8); Mean Corpuscular HGB Conc 34.1 g/dL (29.9-35.2); Mean Corpuscular Hemoglobin 30.1 pg (26.7-34.0); Mean Corpuscular Volume 88.3 fL (81.0-99.0); Platelet Count 255 10^3/uL (150-450); Red Blood Count 4.19 10^6/uL (4.20-5.40); White Blood Count 5.2 10^3/uL (4.0-11.0)
[2025-01-04 10:06] LABS: Iron 48.0 ug/dL (50.0-170.0)
[2025-01-04 10:18] LABS: Alanine Aminotransferase 25 U/L (14-59); Albumin Globulin Ratio 0.9; Albumin Level 3.8 g/dL (3.4-5.0); Alkaline Phosphatase 81 U/L (46-116); Anion Gap 11.0; Aspartate Amino Transferase 19 U/L (15-37); Blood Urea Nitrogen 10.0 mg/dL (7.0-18.0); Calcium 8.8 mg/dL (8.5-10.1); Carbon Dioxide 31.4 mmol/L (21.0-32.0); Chloride 105 mmol/L (98-107); Cholesterol 222 mg/dL (<=200); Estimated GFR (African America >60 (>=60 mL/min/1.73m^2); Estimated GFR (Non-African Ame >60 (>=60 mL/min/1.73m^2); Free T3 2.76 pg/mL (2.18-3.98); Globulin 4.1 g/dL; Glucose 94 mg/dL (74-106); HDL Cholesterol 60 mg/dL (40-60); Potassium 4.4 mmol/L (3.5-5.1); Sodium 143 mmol/L (136-145); Thyroid Stimulating Hormone 1.761 uIU/mL (0.358-3.740); Total Protein 7.9 g/dL (6.4-8.2); Triglycerides 112 mg/dL (<=150); VLDL CHOLESTEROL 22.4 mg/dL
== END 2025-01-04 07:34 | disposition home or self-care (01) ==
LOC: MAMMO 07:35
PROVIDERS: Visit Provider Family Medicine
DX: Z00.00 Encounter for general adult medical examination without abnormal findings (principal); Z12.31 Encounter for screening mammogram for malignant neoplasm of breast; R92.8 Other abnormal and inconclusive findings on diagnostic imaging of breast; Z80.42 Family history of malignant neoplasm of prostate; Z80.8 Family history of malignant neoplasm of other organs or systems
CPT/HCPCS: 36415; 77063; 77067; 80053; 80061; 83036; 83540; 84436; 84443; 84481; 85025